=== PATIENT | female | born 1970 | race Hispanic/Latino ===

== ENCOUNTER 2017-01-06 06:58 | Day surgery (SDC) | payer OTHER, MEDICARE ==
[2017-01-05 11:02] VITALS: RESP 18
--- NOTE | 2017-01-06 08:09 | CP.SDSHP ---
Same Day Surgery H & P - History Proposed Procedure: Bone marrow aspiration Pre-Op Diagnosis: anemia and leukopenia - Previous Medical/Surgical History Cardiac: Hypertension, ASHD/CAD, Previous VT, Hx of CHF, Arrhythmia, PVD Pulmonary: Bronchitis, Emphysema/COPD Endocrine/Metabolic: Thyroid Disease, Diabetes, Obesity Neuro: Other Misc: Anemia Pain: 2.Mild Pain Previous Surgical History: malignant tumor right eye in 1976, with radiation therapy and chemotherapy - Allergies Allergies: Allergies ciprofloxacin Allergy (Verified 05/28/16 22:42) NAUSEA codeine Allergy (Verified 05/28/16 22:42) FATIGUE hallucinations kiwi Allergy (Verified 05/28/16 22:42) RASH mustard Allergy (Verified 05/28/16 22:42) RASH yellow mustard only Penicillins Allergy (Verified 05/28/16 22:42) ANAPHYLAXIS pepper Allergy (Verified 05/28/16 22:42) RASH white pepper only Sulfa (Sulfonamide Antibiotics) Allergy (Verified 05/28/16 22:42) RASH tomato Allergy (Verified 05/28/16 22:42) RASH sun dried tomatoes only amlodipine [From Norvasc] Adverse Reaction (Verified 01/05/17 10:00) RASH metoclopramide HCl [From Reglan] Adverse Reaction (Verified 05/28/16 22:42) DIZZINESS filberts Allergy (Uncoded 01/05/17 10:01) SWELLING - Physical Exam General Appearance: obese in no acute distress Vital Signs: Vital Signs 01/06/17 01/06/17 07:44 07:55 Temperature 97.9 F Pulse Rate 63 63 Respiratory 18 Rate Blood Pressure 114/48 L O2 Sat by Pulse 96 Oximetry Mental Status: Alert & Oriented x3 Neuro: Other (peripheral neuropathies) Heart: WNL Lungs: WNL GI: WNL - {Optional Preform as Required} Breast: WNL Abdomen: Other (obese, no mass) Rectal: WNL Integument: WNL CARTON STAPLER: WNL : WNL Ortho: WNL ENT: WNL - Impression Impression: Anemia and leukopenia - Date & Time Date: 01/06/17 Time: 08:16 Short Stay Discharge - Short Stay Discharge Admitting Diagnosis/Reason for Visit: D46.1 Disposition: HOME/ ROUTINE Referrals: Nic Dumont MD [Primary Care Provider] -
[2017-01-06 08:34] VITALS: BMI 55.3
[2017-01-06] MEDS ORDERED: Lidocaine 2% w Epi 1:100,000 Inj IJ ONE ×2 (08:47→09:13)
[2017-01-06] MEDS ORDERED: Lactated Ringer's 1,000 ML IV ONE (09:00)
[2017-01-06 09:01] LABS: PARTIAL THROMBOPLASTIN TIME 35.8 Seconds (25.6-37.1)
[2017-01-06] MEDS ORDERED: Midazolam 2 MG/2 ML VIAL ONE (09:07)
--- NOTE | 2017-01-06 10:16 | CP.PCM.PN ---
Subjective - Date & Time of Evaluation Date of Evaluation: 01/06/17 Time of Evaluation: 10:13 - Subjective Subjective: Pt had a bone marrow aspiration done from the sternum under local anesthesia and deep sedation. Procedure tolerated well, with results to follow. Objective - Vital Signs/Intake and Output Vital Signs (last 24 hours): Temp Pulse Resp BP Pulse Ox 97.6 F 62 18 120/64 100 01/06/17 09:45 01/06/17 10:00 01/06/17 10:00 01/06/17 10:00 01/06/17 10:00 Intake and Output: 01/06/17 01/06/17 06:59 18:59 Intake Total 100 Balance 100 - Labs Labs: PT 13.3 Seconds (9.8-13.1) H 01/06/17 08:00 INR 1.3 (0.9-1.2) H 01/06/17 08:00 APTT 35.8 Seconds (25.6-37.1) 01/06/17 08:00
[2017-01-06 12:24] VITALS: BP 123/63; PULSE 65; TEMP 97.8; O2SAT 98
== END 2017-01-06 12:39 | disposition home or self-care (01) ==
LOC: H.OPSURG 06:58
PROVIDERS: ATTEND Specialist
DX: D46.1 Refractory anemia with ring sideroblasts (principal); J45.909 Unspecified asthma, uncomplicated; I25.10 Atherosclerotic heart disease of native coronary artery without angina pectoris; I11.0 Hypertensive heart disease with heart failure; I50.9 Heart failure, unspecified; I25.2 Old myocardial infarction; E78.5 Hyperlipidemia, unspecified; E03.9 Hypothyroidism, unspecified; G47.33 Obstructive sleep apnea (adult) (pediatric); E11.9 Type 2 diabetes mellitus without complications
CPT/HCPCS: 36415; 38221; 82948; 85610; 85730; J2001; J2250; J3010; J7120

== ENCOUNTER 2017-02-17 09:03 | Inpatient (IN) | payer OTHER, MEDICARE ==
[2017-02-17 09:08] VITALS: BMI 54.1
--- NOTE | 2017-02-17 09:18 | ED PDOC ---
HPI:STROKE - Time Time: :15 - Historian Historian: Patient - Chief Complaint Chief Complaint: Weakness (left side) - Onset Date: 02/17/17 Onset: This morning - Timing Timing: Improved - Location Locate left: Lower extremity - Radiation Radiation: None - Exacerbated by Exacerbated by:: Nothing - Relieved by Relieved by:: Nothing - TPA Positive for Contraindication: Yes Reason tPA is not being Administered: pt out of treatment window - Notes: Notes:: 47 y/o f with a pmh of htn and bm, right eye blindness p/w left sided weakness that the patient noticed when she awoke, nothing makes it better or worse, no trouble speeching or swallowing NIHSS Stroke Scale - Date/Time Evaluation Performed Date Performed: 02/17/17 Time Performed: :18 - How Severe is the Stroke Level of Consciousness: 0=Alert LOC to Questions: 0=Both comments correct LOC to commands: 0=Obeys both correctly Best Gaze: 0=Normal Visual: 0=No visual loss Facial: 0=Normal Motor Arm - Left: 0=No drift Motor Arm - Right: 0=No drift Motor Leg - Left: 0=No drift Motor Leg - Right: 0=No drift Limb Ataxia: 0=Absent Sensory: 0=Normal Best Language: 0=No aphasia Dysarthia: 0=Normal articulation Extinction & Inattention (Neglect): 0=Normal, no object Score: 0 rTPA Inclusion/Exclusion - Refusal of Treatment Patient Refused Treatment: No - Inclusion Criteria for Altepase Patient is 18 years or Older: Yes The Clinical Diagnosis of Ischemic Stroke That is Causing a Potentially Disabling Neurological Deficit: Yes Time of Onset is Well Established to be Less Than 270 Minute Before Treatment Would Begin: No Risk/Benefit Discussed With Patient/Family Member Present: Yes Past Medical History Reviewed: Historical Data, Nursing Documentation, Vital Signs Vital Signs: Last Vital Signs Temp 98.6 F 02/17/17 09:13 Pulse 72 02/17/17 09:13 Resp 16 02/17/17 09:13 BP 174/86 H 02/17/17 09:13 Pulse Ox 98 02/17/17 09:13 - Medical History PMH: Anemia, Anxiety, Arthritis, Asthma, Bronchitis, CAD, CHF, Depression, Diabetes, Deep Vein Thrombosis, GERD, HTN, Hypercholesterolemia, Hypothyroidism , Osteoporosis, Peripheral Edema, Pulmonary Embolism, Sleep Apnea (use c-pap), TIA Denies: HIV, Chronic Kidney Disease - Surgical History Surgical History: Coronary Stent (3x), Endoscopy, Tonsillectomy - Family History Family History: States: Unknown Family Hx - Living Arrangements Living Arrangements: With Family - Social History Current smoker - smoking cessation education provided: No - Immunization History Hx Tetanus Toxoid Vaccination: No Hx Influenza Vaccination: Yes Hx Pneumococcal Vaccination: No - Home Medications Home Medications: Ambulatory Orders Medication Instructions Recorded Ranolazine [Ranexa] 500 mg PO BID #0 ter 09/18/14 Levothyroxine [Synthroid] 200 mcg PO ACB 12/19/14 Potassium Chloride [K-Dur 20 mEq 40 meq PO BID 12/19/14 ER Tab] Insulin Aspart, Recombinant 20 - 40 unit SC ACTID 02/07/16 [Novolog] Montelukast [Singulair] 10 mg PO HS 02/07/16 Allopurinol [Zyloprim] 300 mg PO DAILY #0 tab 02/21/16 Clopidogrel [Plavix] 75 mg PO DAILY #0 tab 02/21/16 Insulin Detemir [Levemir] 30 - 40 units SC BID 04/28/16 Vilazodone HCl [Viibryd] 20 mg PO DAILY 04/28/16 cloNIDine [Catapres] 0.2 mg PO BID 04/28/16 ALPRAZolam [Xanax] 0.25 mg PO HS PRN 08/19/16 DiphenhydrAMINE [Benadryl] 25 mg PO HS PRN 08/19/16 Ergocalciferol (Vitamin D2) 50,000 unit PO FR 08/19/16 [Vitamin D2] Furosemide [Lasix] 40 mg PO BID 08/19/16 Levocetirizine Dihydrochloride 5 mg PO HS 08/19/16 [Xyzal] Mometasone Furoate [Nasonex] 1 spray GOPI DAILY PRN 08/19/16 Nystatin/Triamcinolone [Mycolog 1 appl TOP TID 08/19/16 Ointment] Rosuvastatin Calcium [Crestor] 10 mg PO HS 08/19/16 metFORMIN [glucOPHAGE] 500 mg PO BID 08/19/16 Aspirin [Ecotrin] 81 mg PO HS 02/17/17 Famotidine [Pepcid] 20 mg PO BID 02/17/17 Levalbuterol Tartrate [Xopenex Hfa] 2 puff IH Q6H PRN 02/17/17 - Allergies Allergies/Adverse Reactions: Allergies Allergy/AdvReac Type Severity Reaction Status Date / Time ciprofloxacin Allergy NAUSEA Verified 02/17/17 09:09 codeine Allergy FATIGUE Verified 02/17/17 09:09 kiwi Allergy RASH Verified 02/17/17 09:09 mustard Allergy RASH Verified 02/17/17 09:09 Penicillins Allergy ANAPHYLAXIS Verified 02/17/17 09:09 pepper Allergy RASH Verified 02/17/17 09:09 Sulfa (Sulfonamide Allergy RASH Verified 02/17/17 09:09 Antibiotics) tomato Allergy RASH Verified 02/17/17 09:09 amlodipine [From Norvasc] AdvReac RASH Verified 02/17/17 09:09 metoclopramide HCl AdvReac DIZZINESS Verified 02/17/17 09:09 [From Reglan] filberts Allergy SWELLING Uncoded 01/05/17 10:01 Review of Systems ROS Statement: Except As Marked, All Systems Reviewed And Found Negative Constitutional: Negative for: Fever, Chills Cardiovascular: Negative for: Chest Pain Respiratory: Negative for: Cough, Shortness of Breath Gastrointestinal: Negative for: Nausea, Vomiting Neurological: Positive for: Weakness. Negative for: Numbness, Confusion, Seizures, Altered Mental Status, Headache, Dizziness Physical Exam - Reviewed Nursing Documentation Reviewed: Yes Vital Signs Reviewed: Yes - Physical Exam Appears: Positive for: Uncomfortable (morbidly obese) Head Exam: Positive for: ATRAUMATIC, NORMAL INSPECTION, NORMOCEPHALIC Skin: Positive for: Normal Color, Warm, Dry Eye Exam: Positive for: EOMI, PERRL, Other (right eye blind and covered with patch) Neck: Positive for: Normal, Painless ROM, Supple Cardiovascular/Chest: Positive for: Regular Rate, Rhythm, Chest Non Tender Respiratory: Positive for: Normal Breath Sounds. Negative for: Decreased Breath Sounds, Accessory Muscle Use, Crackles, Rales, Rhonchi, Stridor, Wheezing , Respiratory Distress Pulses-Radial (L): 2+ Pulses-Radial (R): 2+ Gastrointestinal/Abdominal: Positive for: Normal Exam, Bowel Sounds, Soft. Negative for: Tenderness Extremity: Positive for: Normal ROM. Negative for: Tenderness, Pedal Edema, Calf Tenderness, Deformity, Swelling Neurologic/Psych: Positive for: Alert, coffee brewer II-XII, Oriented, Motor/Sensory Deficits (mild left hand cementer strength reduced on left), Mood/Affect (calm), Cerebellar Tests (ftn). Negative for: Aphasia, Facial Droop - Laboratory Results Result Diagrams: 02/17/17 09:28 02/17/17 09:28 - ECG ECG: Positive for: Interpreted By Me ECG Rhythm: Positive for: Normal QRS, Normal ST Segment, Sinus Rhythm. Negative for: ST/T Changes Interpretation Of Abn EKG: rate of 70, mild t wave flattening unchanged since yesterday O2 Sat by Pulse Oximetry: 98 Pulse Ox Interpretation: Normal - Radiology X-Ray: Interpreted by Me X-Ray Interpretation: No Acute Disease - Progress ED Course And Treament: per Dr michael cta results similar to prev mri. will admit to obs. no other intervention Re-evaluation Time: 11:00 Condition: Improved Disposition - Clinical Impression Clinical Impression: TIA (transient ischemic attack) - Patient ED Disposition Is Patient to be Admitted: Yes Counseled Patient/Family Regarding: Studies Performed, Diagnosis - Disposition Disposition Time: 11:00 Condition: STABLE - Pt Status Changed To: Hospital Disposition Of: Observation - POA Present On Arrival: None
[2017-02-17 09:37] LABS: BASO % 0.3 % (0.0-2.0); EOS # 0.1 K/uL (0.0-0.7); HEMATOCRIT 25.3 % (34.0-47.0); LYMPH # 0.9 K/uL (1.0-4.3); LYMPH % 27.8 % (20.0-40.0); MEAN CELL VOLUME 81.5 fl (81.0-99.0); MEAN CORPUSCULAR HEMOGLOBIN 27.5 pg (27.0-31.0); MEAN CORPUSCULAR HGB CONC 33.7 g/dL (33.0-37.0); MEAN PLATELET VOLUME 7.9 fl (7.2-11.7); MONO # 0.2 K/uL (0.0-0.8); MONO % 6.7 % (0.0-10.0); NEUT # 2.1 K/uL (1.8-7.0); NEUT % 62.2 % (50.0-75.0); NRBC % 0.1 % (0.0-0.0); RED CELL DISTRIBUTION WIDTH 15.4 % (11.5-14.5); WHITE BLOOD COUNT 3.4 K/uL (4.8-10.8)
--- NOTE | 2017-02-17 09:43 | CT ---
PROCEDURE: CT HEAD WITHOUT CONTRAST. HISTORY: code stroke COMPARISON: Enhanced head CT 02/10/2016. TECHNIQUE: Axial computed tomography images were obtained through the head/brain without intravenous contrast. Radiation dose: Total exam DLP = 780.44 mGy-cm. This CT exam was performed using one or more of the following dose reduction techniques: Automated exposure control, adjustment of the mA and/or kV according to patient size, and/or use of iterative reconstruction technique. FINDINGS: HEMORRHAGE: No intracranial hemorrhage. BRAIN: Normal lew-white matter differentiation and density are appreciated throughout the cerebrum and cerebellum with the brainstem appearing unremarkable as well. There is no mass effect. There is no suspicious extra-axial fluid collection in the midline brain anatomy appears diffusely unremarkable. VENTRICLES: Unremarkable. No hydrocephalus. CALVARIUM: Unremarkable. PARANASAL SINUSES: Unremarkable as visualized. No significant inflammatory changes. MASTOID AIR CELLS: Unremarkable as visualized. No inflammatory changes. OTHER FINDINGS: None. IMPRESSION: Unremarkable unenhanced head CT without significant interval change greater prior head CT 02/10/2016. Follow-up CT or MRI are available if clinically warranted. Findings were discussed with Dr. Wellington 02/17/2017 9:28 a.m..
[2017-02-17 09:50] LABS: ALKALINE PHOSPHATASE 69 U/L (38-126); ALT/SGPT 33 U/L (9-52); AST/SGOT 54 U/L (14-36); BILIRUBIN,TOTAL 0.3 mg/dl (0.2-1.3); BLOOD UREA NITROGEN 14 mg/dl (7-17); CALCIUM 8.3 mg/dL (8.4-10.2); CARBON DIOXIDE 32 mmol/L (22-30); CHLORIDE 100 mmol/L (98-107); CHOLESTEROL 140 mg/dL (0-199); GFR AFRICAN-AMERICAN > 60; GLUCOSE,RANDOM 179 mg/dL (65-105); POTASSIUM 3.3 MMOL/L (3.6-5.0); SODIUM 141 mmol/l (132-148); TOTAL PROTEIN 6.8 G/DL (6.3-8.2)
[2017-02-17] MEDS ORDERED: Iodixanol 320 MG/ML 100 ML BOTTLE IV ONE (09:52)
[2017-02-17] MEDS ORDERED: Sodium Chloride 0.9% 50 ML IV ONE (09:52)
[2017-02-17 09:53] LABS: PARTIAL THROMBOPLASTIN TIME 39.1 Seconds (25.6-37.1)
--- NOTE | 2017-02-17 10:47 | CT ---
PROCEDURE: CTA HEAD AND NECK WITH CONTRAST HISTORY: cva mild right sdied weakness of ue COMPARISON: None available. TECHNIQUE: Initial noncontrast head CT was performed. Subsequently, CT angiogram of the head and neck were performed after the intravenous administration of 80 mL of Omnipaque 350. Contiguous 1.5mm thick images were obtained in the axial plane of the neck. 2-D coronal and sagittal MPR images were obtained. Imaging postprocessing was performed with 3-D images also obtained. A delayed contrast head CT was also obtained. This CT exam was performed using one or more of the following dose reduction techniques: Automated exposure control, adjustment of the mA and/or kV according to patient size, and/or use of iterative reconstruction technique. Contrast dose: 100 cc Visipaque 320 Radiation dose: Total exam DLP = 3861.79 mGy-cm. FINDINGS: HEAD: There are dense atherosclerotic calcifications in the cavernous carotid arteries, worse on the right. Right: The intracranial internal carotid artery, and anterior and middle cerebral arteries are widely patent. Left: The intracranial internal carotid artery, and anterior and middle cerebral arteries are widely patent. Posterior circulation: The visualized intracranial vertebral arteries, basilar artery and left posterior cerebral arteries are widely patent. There is asymmetric severe narrowing of the right posterior cerebral artery. Bilateral posterior communicating arteries are normal. Ther is no endoluminal filling defect to suggest thrombus. There is no intracranial saccular aneurysm. There is no abnormal enhancement on the postcontrast CT. NECK: There is a three vessel aortic arch. There is no stenosis at the origins of the great vessels at the level of the aortic arch. There are mild atherosclerotic calcifications in the proximal internal carotid arteries without luminal narrowing Right Carotid: On the right, the common carotid, internal carotid and external carotid arteries are widely patent. There is no hemodynamically significant stenosis in the internal carotid arteries. Left Carotid: On the left, the common carotid, internal carotid and external carotid arteries are widely patent.There is no hemodynamically significant stenosis in the internal carotid arteries. The vertebral arteries are widely patent. The right vertebral artery is hypoplastic, an anatomic variant. The visualized soft tissues of the neck are normal. The visualized brain and cervical spine are within normal limits. The lung apices are clear. IMPRESSION: 1. Asymmetric severe narrowing of the right posterior cerebral artery which may be related to severe underlying atherosclerosis. 2. No evidence of hemodynamically significant stenosis in the internal carotid arteries. 3. No evidence of occlusion or definite significant stenosis in the anterior circulation.
--- NOTE | 2017-02-17 11:27 | CARD ---
APPROVED REPORT EKG Measurement Heart [id number] <Conclusion> Sinus rhythm with 1st degree AV block T wave abnormality, consider inferior ischemia Prolonged QT Abnormal ECG
--- NOTE | 2017-02-17 11:45 | RAD ---
HISTORY: code stroke COMPARISON: 05/28/2016. FINDINGS: LUNGS: The lungs are well inflated and clear. PLEURA: No significant pleural effusion identified, no pneumothorax apparent. CARDIOVASCULAR: Normal. OSSEOUS STRUCTURES: No significant abnormalities. VISUALIZED UPPER ABDOMEN: Normal. OTHER FINDINGS: None. IMPRESSION: No active pulmonary disease.
[2017-02-17] MEDS ORDERED: Albuterol HFA 90 mcg/actuation (8 g) IH PRN (12:38)
[2017-02-17] MEDS ORDERED: Mycolog II CREAM TOP SCH (13:00)
--- NOTE | 2017-02-17 15:49 | CP.PCM.HP ---
History of Present Illness - History of Present Illness History of Present Illness: CC: Left sided weakness This is a 47-year-old female with a long-standing history of bronchial asthma, also with history of CVA, morbid obesity, sinusitis, and suspected obesity/ hypoventilation syndrome. She also has history of diabetes mellitus type II, cardiomyopathy, coronary artery disease with stents, history of pulmonary embolism. She also has history of right a malignant tumor in 1976. The patient presented this morning around 9:15 with a complaint of sudden onset left upper and left lower any weakness when she woke up this morning around 6 AM. She notes that when trying to walk to the bathroom and felt like she was "out of control of my left leg". After a concern that she might fall secondary to weakness, she came to the emergency department. Here in the ED, code stroke was called given her symptoms. CT scan without contrast was performed which showed no significant interval change from previous head CT on 02/10/2016. The head and neck CT was also performed revealing asymmetric severe narrowing of the right posterior cerebral artery which may be related to severe underlying atherosclerosis. Her symptoms improved during her stay in the ED. Dr. Hoyt, neurologist, was consulted on the patient. The patient was also noted to have anemia with a hemoglobin of 8.[address] Renan Vizcaino is to also be called. Given the concern for CVA, the patient is to be placed on telemetry observation overnight for further monitoring and workup.Patient denies chest pain, shortness of breath, fevers, chills, nausea, vomiting, diarrhea, headache. Rest of ROS as below. All of the patient's questions were answered at the bedside. Present on Admission - Present on Admission Any Indicators Present on Admission: No History of DVT/PE: Yes Review of Systems - Hematologic/Lymphatic Additional comments: GENERAL/CONSTITUTIONAL: The patient admits to left sided weakness. denies fever , fatigue, weakness, weight gain or weight loss. HEAD, EYES, EARS, NOSE AND THROAT: Eyes - The patient has right eye patch with remote tumor hx. The patient denies pain, redness, loss of vision, double or blurred vision, flashing lights or spots, dryness in left eye. Ears, nose, mouth and throat. The patient denies ringing in the ears, loss of hearing, nosebleeds, loss of sense of smell, dry sinuses, sinusitis, post nasal drip, CARDIOVASCULAR: The patient denies chest pain, chest pressure, or irregular heartbeats, RESPIRATORY: She denies chronic dry cough, coughing up blood, coughing up mucus , wheezing, or shortness of breath. GASTROINTESTINAL: The patient denies decreased appetite, nausea, vomiting, vomiting blood or coffee ground material, heartburn, regurgitation, diarrhea, constipation, gas, blood in the stools, black tarry stools. GENITOURINARY: The patient denies difficult urination, pain or burning with urination, blood in the urine, frequency, or urgency MUSCULOSKELETAL: The patient denies arm, buttock, thigh or calf cramps. No joint or muscle pain. No muscle weakness or tenderness. No joint swelling, neck pain, back pain. SKIN: The patient denies easy bruising, skin redness, skin rash, hives, sensitivity to sun exposure, tightness, nodules or bumps, hair loss, color changes in the hands or feet with cold. NEUROLOGIC: Complains of left sided weakness as in HPI. She admits to headache on 02/16. The patient denies dizziness, fainting, muscle spasm, loss of consciousness, sensitivity or pain in the hands and feet or memory loss. PSYCHIATRIC: The patient denies anxiety, depression, or thoughts of suicide. ENDOCRINE: The patient denies intolerance to hot or cold temperature, flushing, fingernail changes, increased thirst, increased salt intake or decreased sexual desire. HEMATOLOGIC/LYMPHATIC: The patient denies anemia, bleeding tendency or clotting tendency. ALLERGIC/IMMUNOLOGIC: The patient denies rhinitis, asthma, skin sensitivity, latex allergies or sensitivity. Past Patient History - Infectious Disease Hx of Infectious Diseases: None - Past Medical History & Family History Past Medical History?: Yes - Past Social History Smoking Status: Never Smoked - CARDIAC Hx Congestive Heart Failure: Yes Hx Hypercholesterolemia: Yes Hx Hypertension: Yes Hx Peripheral Edema: Yes - PULMONARY Hx Asthma: Yes Hx Bronchitis: Yes Hx Pulmonary Embolism: Yes Hx Sleep Apnea: Yes (use c-pap) - NEUROLOGICAL Hx Transient Ischemic Attacks (TIA): Yes - HEENT Hx Blind: Yes (RT EYE) - RENAL Hx Chronic Kidney Disease: No - ENDOCRINE/METABOLIC Hx Hypothyroidism: Yes - HEMATOLOGICAL/ONCOLOGICAL Hx Anemia: Yes Hx Human Immunodeficiency Virus (HIV): No - INTEGUMENTARY Hx Dermatological Problems: No - MUSCULOSKELETAL/RHEUMATOLOGICAL Hx Arthritis: Yes Hx Osteoporosis: Yes - GASTROINTESTINAL Hx Gastrointestinal Disorders: No Hx Gastroesophageal Reflux: Yes - GENITOURINARY/GYNECOLOGICAL Hx Genitourinary Disorders: No - PSYCHIATRIC Hx Anxiety: Yes Hx Depression: Yes Hx Substance Use: No - SURGICAL HISTORY Hx Coronary Stent: Yes (3x) Hx Tonsillectomy: Yes - ANESTHESIA Hx Anesthesia: Yes Hx Anesthesia Reactions: Yes (BREATHING, VOMITTING) Hx Malignant Hyperthermia: No Meds Allergies/Adverse Reactions: Allergies Allergy/AdvReac Type Severity Reaction Status Date / Time ciprofloxacin Allergy NAUSEA Verified 02/17/17 09:09 codeine Allergy FATIGUE Verified 02/17/17 09:09 kiwi Allergy RASH Verified 02/17/17 09:09 mustard Allergy RASH Verified 02/17/17 09:09 Penicillins Allergy ANAPHYLAXIS Verified 02/17/17 09:09 pepper Allergy RASH Verified 02/17/17 09:09 Sulfa (Sulfonamide Allergy RASH Verified 02/17/17 09:09 Antibiotics) tomato Allergy RASH Verified 02/17/17 09:09 amlodipine [From Norvasc] AdvReac RASH Verified 02/17/17 09:09 metoclopramide HCl AdvReac DIZZINESS Verified 02/17/17 09:09 [From Reglan] filberts Allergy SWELLING Uncoded 01/05/17 10:01 Physical Exam - Additional Findings Additional findings: Physical exam: Constitutional- cooperative, awake, alert. Head- NCAT, PERRL Eye- PERRL, normal accommodation ENT- normal exam, MMM. Neck- normal inspection, supple, no JVD Respiratory- CTAB, no wheezes rales rhonchi Cardiovascular- RRR, +S1, +S2 no MRG GI/Abdominal- normal bowel sounds, soft Skin- warm, dry Extremities Exam- normal capillary refill, normal inspection. Neurological Exam- alert, gait unable to be assessed. CN II-XII intact. Psych- normal mood, normal affect Results - Vital Signs Recent Vital Signs: Last Vital Signs Temp 98.4 F 02/17/17 15:19 Pulse 70 02/17/17 15:19 Resp 16 02/17/17 15:19 BP 175/69 H 02/17/17 15:19 Pulse Ox 97 02/17/17 15:18 - Labs Result Diagrams: 02/17/17 09:28 02/17/17 09:28 Labs: Laboratory Results - last 24 hr 02/17/17 02/17/17 02/17/17 09:10 09:28 09:28 WBC 3.4 L RBC 3.11 L Hgb 8.5 L Hct 25.3 L MCV 81.5 D MCH 27.5 MCHC 33.7 RDW 15.4 H Plt Count 122 L MPV 7.9 Neut % (Auto) 62.2 Lymph % (Auto) 27.8 Arroyo % (Auto) 6.7 Eos % (Auto) 3.0 Baso % (Auto) 0.3 Neut # 2.1 Lymph # 0.9 L Arroyo # 0.2 Eos # 0.1 Baso # 0.0 PT INR APTT Sodium 141 Potassium 3.3 L Chloride 100 Carbon Dioxide 32 H Anion Gap 12 BUN 14 Creatinine 0.8 Est GFR ( Amer) > 60 Est GFR (Non-Af Amer) > 60 POC Glucose (mg/dL) 214 H Random Glucose 179 H Hemoglobin A1c Calcium 8.3 L Total Bilirubin 0.3 AST 54 H ALT 33 Alkaline Phosphatase 69 Troponin I < 0.0120 NT-Pro-B Natriuret Pep 187 Total Protein 6.8 Albumin 3.5 Globulin 3.4 Albumin/Globulin Ratio 1.0 Triglycerides 163 H Cholesterol 140 LDL Cholesterol Direct 67 HDL Cholesterol 33 Blood Type Antibody Screen BBK History Checked 02/17/17 02/17/17 02/17/17 09:28 09:28 09:28 WBC RBC Hgb Hct MCV MCH MCHC RDW Plt Count MPV Neut % (Auto) Lymph % (Auto) Arroyo % (Auto) Eos % (Auto) Baso % (Auto) Neut # Lymph # Arroyo # Eos # Baso # PT 14.0 H INR 1.2 APTT 39.1 H Sodium Potassium Chloride Carbon Dioxide Anion Gap BUN Creatinine Est GFR ( Amer) Est GFR (Non-Af Amer) POC Glucose (mg/dL) Random Glucose Hemoglobin A1c 7.0 H Calcium Total Bilirubin AST ALT Alkaline Phosphatase Troponin I NT-Pro-B Natriuret Pep Total Protein Albumin Globulin Albumin/Globulin Ratio Triglycerides Cholesterol LDL Cholesterol Direct HDL Cholesterol Blood Type A POSITIVE Antibody Screen Negative BBK History Checked Patient has bt Assessment & Plan - Assessment and Plan (Free Text) Plan: ASSESSMENT Left sided weakness, r/o CVA, with severe narrowing of the right posterior cerebral artery. - Consultation with Dr. Hoyt for management of possible CVA - PT/OT/ST consultation - Continue Aspirin/Plavix - Continue home statin - Neuro checks/vitals as per protocol Acute on chronic anemia - Consultation with Dr. Vizcaino, heme/onc - Repeat CBC in AM to trend - No hx of GI bleeding in the past Chronic bronchial asthma - Consultation with Dr. Dumont - Patient saturating well, hemodynamically stable - continue Claritin 10 mg po HS - Continue Singulair 10 mg po HS DM type 2 - Lispro sliding scale initiated - Levemir 40 units SC BID - Accuchecks AC+HS CAD with stents - Continue ASA, Plavix, statin as above - No CP at this time - telemetry monitoring Hypothyroidism - Continue Synthroid DVT prophylaxis - Heparin SQ GERD prophylaxis - Pepcid 20 mg po BID (home med)
[2017-02-17] MEDS ORDERED: Insulin Detemir 100 Units/ml Inj SC SCH ×3 (17:00→22:03)
[2017-02-17] MEDS ORDERED: Insulin Lispro (humaLOG) 100 Units/ml Inj SC SCH ×2 (17:00→18:27)
[2017-02-17] MEDS: Potassium Chloride 20 mEq ER Tab PO SCH (17:52)
[2017-02-17] MEDS: Insulin Lispro (humaLOG) 100 Units/ml Inj SC SCH (22:46)
[2017-02-18 05:35] LABS: ALKALINE PHOSPHATASE 69 U/L (38-126); ALT/SGPT 37 U/L (9-52); AST/SGOT 56 U/L (14-36); BILIRUBIN,TOTAL 0.3 mg/dl (0.2-1.3); BLOOD UREA NITROGEN 15 mg/dl (7-17); CALCIUM 8.9 mg/dL (8.4-10.2); CARBON DIOXIDE 35 mmol/L (22-30); CHLORIDE 99 mmol/L (98-107); GFR AFRICAN-AMERICAN > 60; GLUCOSE,RANDOM 219 mg/dL (65-105); POTASSIUM 3.3 MMOL/L (3.6-5.0); SODIUM 141 mmol/l (132-148)
[2017-02-18 05:59] LABS: THYROID STIMULATING HORMONE 4.33 mIU/ML (0.46-4.68)
[2017-02-18] MEDS: Insulin Lispro (humaLOG) 100 Units/ml Inj SC SCH ×6 (06:34→23:12)
[2017-02-18] MEDS ORDERED: Insulin Lispro (humaLOG) 100 Units/ml Inj SC SCH (07:30)
[2017-02-18 08:20] LABS: IRON 30 ug/dL (37-170)
[2017-02-18] MEDS: Levothyroxine 200 MCG TAB PO SCH (09:02)
[2017-02-18] MEDS: Potassium Chloride 20 mEq ER Tab PO SCH ×2 (09:03→17:59)
[2017-02-18] MEDS: Insulin Detemir 100 Units/ml Inj SC SCH ×2 (09:04→23:13)
--- NOTE | 2017-02-18 10:25 | CON ---
DATE: 02/17/2017 REASON FOR THE CONSULTATION: Stroke. CHIEF COMPLAINT: The patient was brought in to [facility] with a history of woke up with dizziness and losing her balance on her left side. From neurological point of view, I was called in to evaluate her for further management. HISTORY OF PRESENTING ILLNESS: Ms. Jerilyn Hallman is a 47-year-old moderately obese, right handed, female who is known to me for more than three to four years for her neuropathy, headache, and stroke. Patient did have stroke process particularly affecting posterior cerebral artery distribution in her recent admission. She had an extensive workup during the time, and she was transferred to rehab. At this time, she woke up around 3:00. She felt vertiginous feeling. Immediately, she called her to help her. She was not able to have strength on her left side, about to fall onto the left side. The whole event was not associated with speech or bulbar dysfunction or visual disturbances. She immediately called her girlfriend who is a nurse. She immediately advised her to go to the Emergency Room. In the Emergency Room, erin spicer was called in, did have a CT of the head, which was reported as negative, and CT angiogram also showed no acute thrombus noted except atherosclerotic changes in the posterior cerebral artery distribution. Since the symptom has been improved, patient was not a candidate to get a TPA. PAST MEDICAL HISTORY: Hypertension, dyslipidemia, diabetes mellitus, migraine, hypothyroidism, sleep disorder. PERSONAL HISTORY: Denies smoking or alcohol use. ALLERGIES: TO CIPRO, CODEINE, KIWI, MUSTARD, PENICILLIN, PEPPER, ETC. REVIEW OF SYSTEMS: A 16-point system has been reviewed. NEURO: Recurrent dizziness and left-sided weakness. MEDICATIONS: Benadryl, Catapres, Claritin, Drisdol, Ecotrin, Flonase, Glucophage, Humalog, potassium supplement, Lasix, Levemir, Lipitor, Plavix, Singulair, Synthroid, Xanax, and Zyloprim. PHYSICAL EXAMINATION: VITAL SIGNS: Blood pressure 168/78, mean arterial pressure of 102, respiratory rate of 16, temperature afebrile, NECK: Supple. Carotid bruit on both sides. HEART: Tachycardic. EXTREMITIES: No edema in legs. NEUROLOGIC: Mental status examination: She is awake, alert, and oriented to person, place and time. Speech is clear. Naming, repetition, fluency, comprehension all within normal. Her eye has been patched from her old injuries. With one eye, extraocular movement is normal. Pupil reactive to light. No facial asymmetry. 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 Motor examination: Outstretched hand with eyes closed, no drift is noted. Power is symmetrical on either side. Deep tendon reflexes: Biceps, brachialis, triceps, knee, ankle all are absent. Plantars are mute. Coordination: [id number] test, consistently missed her nose. [place]ouau-oy-[id number] test also showed dysmetria. Gait: She was not able to stand up. Romberg sign positive, leaning to her left side, she was not able to march on one place. WORKUP: CT of the head and CT angiogram have been reported as above. Blood workup: WBC 3.4, hemoglobin 8.5, hematocrit 25.3, platelet 122. PT 14.0, INR 1.2, PTT 39.1. Sodium 141, potassium 3.3, chloride 100, bicarbonate 32, creatinine 0.8, GFR more than 60, glucose 214, hemoglobin A1c 7.0. CONCLUSION: Ms. Jerilyn Hallman has been presenting with possible brainstem ischemic process manifesting with ataxic hemiparesis. Patient is already on aspirin and Plavix. Patient failing with aspirin. At this point, I would like to switch aspirin to Aggrenox. Patient also suffering from diabetic neuropathy, obesity, and possible sleep-related breathing disorder. Patient will be followed closely with you during the hospitalization. Patient is also requested to have an MRI of the brain to assess acute stroke process. Darren Hoyt MD MTDRey
--- NOTE | 2017-02-18 10:52 | CON ---
ENDOCRINOLOGY CONSULTATION DATE: LOCATION: In room 418, bed 2. HISTORY OF PRESENT ILLNESS: This is a 47-year-old female with known history of type 1 insulin-dependent diabetes, presenting here with sudden onset of left-sided weakness and evaluated to have a transient ischemic event with severe narrowing in the right posterior cerebral artery, seen by the CAT scan as noted, and is being referred now for diabetic evaluation and management. PAST MEDICAL HISTORY: As mentioned above, history of type 1 insulin-dependent diabetes on a basal and bolus insulin drug combination with Levemir given as 40 units subcu every 12 hours and Humalog taken as a variable dose of 30 to 40 units t.i.d. before meals as ordered. Her hemoglobin A1c has been near optimal and the latest A1c done on the outpatient was 6.9% this month. Also, history of diabetic retinopathy and polyneuropathy with underlying diabetic vasculopathy. She has significant history of coronary artery disease with a previous coronary stent placement done 3 times as noted. History of a previous cerebrovascular event presenting with transient ischemic attack, but no residual weakness as noted. History of peripheral arterial disease and vasculopathy. Also, history of hypothyroidism, on levothyroxine given at a high dose of 200 mcg daily as ordered, history of chronic obstructive lung disease related to chronic bronchial asthma with multiple admissions for exacerbations of the same, history of ischemic cardiomyopathy with previous admissions for congestive heart failure as noted. She also has obstructive sleep apnea and uses a CPAP at night as noted. 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 FAMILY HISTORY: Positive for diabetes, hypertension, and coronary artery disease, and her father who is at this time had significant coronary artery disease and underlying type 2 insulin-requiring diabetes. SOCIAL HISTORY: The patient is with no children, and has a very supportive family; otherwise, no known substance use. REVIEW OF SYSTEMS: As mentioned above. Admits to generalized body weakness with easy fatigability and tiredness and suboptimal energy level with supervening dizziness and lightheadedness, worse on the day of admission. Also admits to sudden onset of left-sided weakness in both upper and lower extremity with marked body weakness and malaise as noted. No chest pains or palpitations or PND. Oral intake has been variable with nausea, dyspepsia, and vague upper abdominal pains. No recent alterations of bowel or urinary patterns. PHYSICAL EXAMINATION: GENERAL: Obese female, in no apparent distress. VITAL SIGNS: Blood pressure of 160/90, pulse of 80 beats per minute and regular, temperature 98, respirations 20, height 5 feet 1 inch, weight is 289 pounds. HEENT: Head normocephalic. Eyes anicteric with pink conjunctivae. Funduscopy not possible at this time. Ears, nose and throat otherwise normal. NECK: Supple. Thyroid gland is normal in size. No carotid bruits or cervical adenopathy. CARDIOPULMONARY: Some adynamic precordium. S1, S2 is rapid and regular. LUNGS: Clear to auscultation. ABDOMEN: Obese, soft with positive bowel sounds. EXTREMITIES: No peripheral edema. Pulses are +2 bilaterally. LABORATORY DATA: Chemistry showed a BUN of 14, sodium 141, potassium 3.3, chloride 100, CO2 of 32, glucose 179, and creatinine 0.8. Her hemoglobin A1c is 7.0%. The glucose levels have ranged from 217 to 278 mg/dL. ASSESSMENT: This is a 47-year-old female with uncontrolled and decompensated type 1 insulin-dependent diabetes, presenting here with a transient ischemic event with underlying history of cerebrovascular disease as noted thereof. She also has diabetic microvascular complications of retinopathy and polyneuropathy with diabetic macrovascular complications of significant coronary artery disease with multiple coronary stent placement and also underlying peripheral arterial disease and vasculopathy as noted. PLAN: Plan of management as discussed with the patient and staff, we will modify her current insulin regimen and switch over to a more physiologic basal and bolus insulin drug combination with Levemir to be given as 20 units just a single dose tonight as ordered and we will add tomorrow morning a dose of Levemir given also as 20 units subcu every 10:00 a.m. daily and we will add Levemir at 50 units at 10:00 p.m. daily as ordered. We will modify the coverage scale to obviate hypoglycemia and detailed orders have been given. A hemoglobin A1c has been done already and we will obtain serial chemistries and supplement accordingly as needed. We will also modify the coverage scale to obviate hypoglycemia and detailed orders have been given, and we will also add Humalog given as 12 units subcu t.i.d. before meals as ordered. We will modify the coverage scale to obviate hypoglycemia as ordered. We will also reinforce diabetic education and dietary instructions, especially with healthier food choices as ordered. We will follow. Lupe Subramanian MD
--- NOTE | 2017-02-18 15:16 | CP.PCM.CON ---
History of Present Illness - History of Present Illness History of Present Illness: This is a 47 yrs old female who was admitted with c/o left sided weakness when she woke up this morning. She also felt some tingling and numbness in the left hand. She felt better after a while but still has some numbness. A Ct scan of the head done in the ER showed no changes from the previous one . There was a marked narrowing of the posterior cerebral artery. She was also found to be anemic Her Hgb was 8.5 with a hct of 25.3, mcv was 81, rdw 15.4, retic count 3.4, and platelets were 122k. Iron was 30, tibc 415, sat 70%. Her B12 was 805. she had a bone marrow test done about 2 month ago and other than iron deficiency nothing else waqs seen. Flow cytometry and the cytogenetic studies were normal as well. She was taking iron at home but had reduced her dose to only once daily; On 3 tid her hgb had been 10.5 gms. She has several co morbid problems ex hypothroidism, DM, HTN, past malignancy , cardiomyopathy, cad with stents, hypoventilation syndrome,old CVA, pulm embolism,asthma and sinusitis Past Patient History - Infectious Disease Hx of Infectious Diseases: None - Past Medical History & Family History Past Medical History?: Yes - Past Social History Smoking Status: Never Smoked - CARDIAC Hx Congestive Heart Failure: Yes Hx Hypercholesterolemia: Yes Hx Hypertension: Yes Hx Peripheral Edema: Yes - PULMONARY Hx Asthma: Yes Hx Bronchitis: Yes Hx Pulmonary Embolism: Yes Hx Sleep Apnea: Yes (use c-pap) - NEUROLOGICAL Hx Transient Ischemic Attacks (TIA): Yes - HEENT Hx Blind: Yes (RT EYE) - RENAL Hx Chronic Kidney Disease: No - ENDOCRINE/METABOLIC Hx Hypothyroidism: Yes - HEMATOLOGICAL/ONCOLOGICAL Hx Blood Disorders: Yes Hx Anemia: Yes Hx Human Immunodeficiency Virus (HIV): No - INTEGUMENTARY Hx Dermatological Problems: No - MUSCULOSKELETAL/RHEUMATOLOGICAL Hx Arthritis: Yes Hx Falls: No Hx Osteoporosis: Yes - GASTROINTESTINAL Hx Gastrointestinal Disorders: Yes Hx Gastroesophageal Reflux: Yes - GENITOURINARY/GYNECOLOGICAL Hx Genitourinary Disorders: No - PSYCHIATRIC Hx Anxiety: Yes Hx Depression: Yes - SURGICAL HISTORY Hx Coronary Stent: Yes (3x) Hx Tonsillectomy: Yes Hx Tubal Ligation: Yes Other/Comment: Endoscopy - ANESTHESIA Hx Anesthesia: Yes Hx Anesthesia Reactions: Yes (BREATHING, VOMITTING) Hx Malignant Hyperthermia: No Meds Allergies/Adverse Reactions: Allergies Allergy/AdvReac Type Severity Reaction Status Date / Time ciprofloxacin Allergy NAUSEA Verified 02/17/17 09:09 codeine Allergy FATIGUE Verified 02/17/17 09:09 kiwi Allergy RASH Verified 02/17/17 09:09 mustard Allergy RASH Verified 02/17/17 09:09 Penicillins Allergy ANAPHYLAXIS Verified 02/17/17 09:09 pepper Allergy RASH Verified 02/17/17 09:09 Sulfa (Sulfonamide Allergy RASH Verified 02/17/17 09:09 Antibiotics) tomato Allergy RASH Verified 02/17/17 09:09 amlodipine [From Norvasc] AdvReac RASH Verified 02/17/17 09:09 metoclopramide HCl AdvReac DIZZINESS Verified 02/17/17 09:09 [From Reglan] filberts Allergy SWELLING Uncoded 01/05/17 10:01 - Medications Medications: Current Medications Allopurinol (Zyloprim) 300 mg PO DAILY [facility] Last Admin: 02/18/17 09:01 Dose: 300 mg Alprazolam (Xanax) 0.25 mg PO HS PRN PRN Reason: Anxiety Stop: 02/24/17 12:39 Atorvastatin Calcium (Lipitor) 20 mg PO HS [facility] Last Admin: 02/17/17 21:25 Dose: 20 mg Clonidine HCl (Catapres) 0.2 mg PO BID [facility] Last Admin: 02/18/17 09:05 Dose: 0.2 mg Clopidogrel Bisulfate (Plavix) 75 mg PO DAILY [facility] Last Admin: 02/18/17 09:02 Dose: 75 mg Diphenhydramine HCl (Benadryl) 25 mg PO HS PRN PRN Reason: Sleep Last Admin: 02/17/17 23:33 Dose: 25 mg Ergocalciferol (Drisdol 50,000 Intl Units Cap) 1 cap PO FR [facility] Famotidine (Pepcid) 20 mg PO BID [facility] Last Admin: 02/18/17 09:02 Dose: 20 mg Fluticasone Propionate (Flonase) 1 spr GOPI DAILY PRN PRN Reason: Allergy symptoms Furosemide (Lasix) 40 mg PO BID [facility] Last Admin: 02/18/17 09:03 Dose: 40 mg Heparin Sodium (Porcine) (Heparin) 5,000 units SC Q12 [facility] PRN Reason: Protocol Last Admin: 02/18/17 09:03 Dose: 5,000 units Home Med (Levalbuterol Tartrate [Xopenex Hfa]) 2 puff IH Q6H PRN PRN Reason: Shortness of Breath Home Med (Ranolazine [Ranexa]) 500 mg PO BID [facility] Home Med (Vilazodone Hcl [Viibryd]) 20 mg PO DAILY [facility] Hydrocortisone (Cortizone 1% Cream) 1 applic TOP BID [facility] Last Admin: 02/18/17 09:00 Dose: 1 applic Iron Sucrose 200 mg/ Sodium (Chloride) 110 mls @ 110 mls/hr IVPB DAILY [facility] Insulin Detemir (Levemir) 20 units SC DAILY [facility] Last Admin: 02/18/17 09:04 Dose: 20 u Insulin Detemir (Levemir) 30 units SC HS [facility] Insulin Human Lispro (Humalog) 0 units SC ACHS [facility] PRN Reason: Protocol Last Admin: 02/18/17 12:57 Dose: Not Given Insulin Human Lispro (Humalog) 14 units SC AC [facility] Last Admin: 02/18/17 13:16 Dose: 14 u Levothyroxine Sodium (Synthroid) 200 mcg PO ACB [facility] Last Admin: 02/18/17 09:02 Dose: 200 mcg Loratadine (Claritin) 10 mg PO HS [facility] Last Admin: 02/17/17 21:25 Dose: 10 mg Metformin HCl (Glucophage) 500 mg PO BID [facility] Last Admin: 02/18/17 09:03 Dose: 500 mg Montelukast Sodium (Singulair) 10 mg PO HS [facility] Last Admin: 02/17/17 21:25 Dose: 10 mg Nystatin (Nystop Topical Powder) 1 applic TOP TID [facility] Last Admin: 02/18/17 09:01 Dose: 1 applic Potassium Chloride (K-Dur 20 Meq Er Tab) 40 meq PO BID [facility] Last Admin: 02/18/17 09:03 Dose: 40 meq Physical Exam - Additional Findings Additional findings: Physical exam; Alert. well oriented, in no acute distress. neck; supple, no adenopathy Chest; Air entry reduced bilaterally, occasional rales Heart, RSR, GR 2/6 systolic murmur Results - Vital Signs Recent Vital Signs: Last Vital Signs Temp 97.9 F 02/18/17 12:26 Pulse 76 10/26/17 12:26 Resp 18 02/18/17 12:26 BP 160/71 H 02/18/17 12:26 Pulse Ox 99 02/18/17 12:26 - Labs Result Diagrams: 02/17/17 09:28 02/18/17 04:10 Labs: Laboratory Results - last 24 hr 02/17/17 02/17/17 02/18/17 17:30 21:54 04:10 Retic Count 3.4 H D Sodium Potassium Chloride Carbon Dioxide Anion Gap BUN Creatinine Est GFR ( Amer) Est GFR (Non-Af Amer) POC Glucose (mg/dL) 217 H 278 H Random Glucose Calcium Iron TIBC % Saturation Ferritin Total Bilirubin AST ALT Alkaline Phosphatase Total Protein Albumin Globulin Albumin/Globulin Ratio Vitamin B12 Thyroxine (T4) TSH 3rd Generation Cortisol AM Sample 02/18/17 02/18/17 02/18/17 04:10 04:10 04:10 Retic Count Sodium 141 Potassium 3.3 L Chloride 99 Carbon Dioxide 35 H Anion Gap 10 BUN 15 Creatinine 0.9 Est GFR ( Amer) > 60 Est GFR (Non-Af Amer) > 60 POC Glucose (mg/dL) Random Glucose 219 H Calcium 8.9 Iron TIBC % Saturation Ferritin 14.0 Total Bilirubin 0.3 AST 56 H ALT 37 Alkaline Phosphatase 69 Total Protein 7.0 Albumin 3.6 Globulin 3.4 Albumin/Globulin Ratio 1.0 Vitamin B12 805 Thyroxine (T4) 6.50 TSH 3rd Generation 4.33 Cortisol AM Sample 3.2 L 02/18/17 02/18/17 02/18/17 04:10 04:29 11:48 Retic Count Sodium Potassium Chloride Carbon Dioxide Anion Gap BUN Creatinine Est GFR ( Amer) Est GFR (Non-Af Amer) POC Glucose (mg/dL) 241 H 222 H Random Glucose Calcium Iron 30 L TIBC 415 % Saturation 7 L Ferritin Total Bilirubin AST ALT Alkaline Phosphatase Total Protein Albumin Globulin Albumin/Globulin Ratio Vitamin B12 Thyroxine (T4) TSH 3rd Generation Cortisol AM Sample Assessment & Plan - Assessment and Plan (Free Text) Assessment: Impression; TIA right side with a constricted post cerebral artery. Iron deficiency anemia. Plan: Plan; Will start her on venofer 200 mg iv .daily - Date & Time Date: 02/18/17 Time: 15:51
--- NOTE | 2017-02-18 15:50 | PN ---
LOCATION: Room #418. SUBJECTIVE: This is a 47-year-old female with recent uncontrolled type 1 insulin-dependent diabetes, presented here with a sudden left-sided weakness and evaluated to have an acute transient ischemic event that has resolved accordingly, and is also being followed closely now for metabolic management. Her glycemic levels are fluctuating, but improved, and the latest glucose values have ranged from 241-278 mg/dL. Her latest chemistry showed a BUN of 15, sodium 141, potassium 3.3, chloride 99, CO2 of 35, glucose 219, and creatinine 0.9. So, at this time, we will modify once again her basal and bolus insulin regimen and increase the Humalog to 14 units subcu t.i.d. before meals to start today as ordered. We will also increase the basal insulin to 30 units subcu at bedtime daily to start tonight. We will continue the morning Levemir given as 20 units subcu at 10:00 a.m. daily as ordered. We will continue the low-dose correction scale using Humalog insulin as modified and given. We will obtain serial chemistries and supplement accordingly as needed. We will follow. Lupe Subramanian MD
--- NOTE | 2017-02-18 16:34 | CP.PCM.PN ---
Subjective - Date & Time of Evaluation Date of Evaluation: 02/18/17 Time of Evaluation: 16:00 - Subjective Subjective: Patient seen and examined bedside.Feeling better but still complains of numbness and tingling sensation to her left side of her head, dizziness and unsteady gait. States that she is afraid to go home because she might fall. BP slightly elevated 160/71 HR 76 afebrile Objective - Vital Signs/Intake and Output Vital Signs (last 24 hours): Temp Pulse Resp BP Pulse Ox 98.3 F 89 20 175/85 H 100 02/18/17 15:51 02/18/17 15:51 02/18/17 15:51 02/18/17 15:51 02/18/17 15:51 - Medications Medications: Current Medications Allopurinol (Zyloprim) 300 mg PO DAILY [facility] Last Admin: 02/18/17 09:01 Dose: 300 mg Alprazolam (Xanax) 0.25 mg PO HS PRN PRN Reason: Anxiety Stop: 02/24/17 12:39 Atorvastatin Calcium (Lipitor) 20 mg PO HS [facility] Last Admin: 02/17/17 21:25 Dose: 20 mg Clonidine HCl (Catapres) 0.2 mg PO BID [facility] Last Admin: 02/18/17 09:05 Dose: 0.2 mg Clopidogrel Bisulfate (Plavix) 75 mg PO DAILY [facility] Last Admin: 02/18/17 09:02 Dose: 75 mg Diphenhydramine HCl (Benadryl) 25 mg PO HS PRN PRN Reason: Sleep Last Admin: 02/17/17 23:33 Dose: 25 mg Ergocalciferol (Drisdol 50,000 Intl Units Cap) 1 cap PO FR BIGG Famotidine (Pepcid) 20 mg PO BID [facility] Last Admin: 02/18/17 09:02 Dose: 20 mg Fluticasone Propionate (Flonase) 1 spr GOPI DAILY PRN PRN Reason: Allergy symptoms Furosemide (Lasix) 40 mg PO BID [facility] Last Admin: 02/18/17 09:03 Dose: 40 mg Heparin Sodium (Porcine) (Heparin) 5,000 units SC Q12 BIGG PRN Reason: Protocol Last Admin: 02/18/17 09:03 Dose: 5,000 units Home Med (Levalbuterol Tartrate [Xopenex Hfa]) 2 puff IH Q6H PRN PRN Reason: Shortness of Breath Home Med (Ranolazine [Ranexa]) 500 mg PO BID [facility] Home Med (Vilazodone Hcl [Viibryd]) 20 mg PO DAILY [facility] Hydrocortisone (Cortizone 1% Cream) 1 applic TOP BID [facility] Last Admin: 02/18/17 09:00 Dose: 1 applic Iron Sucrose 200 mg/ Sodium (Chloride) 110 mls @ 110 mls/hr IVPB ONCE ONE Stop: 02/18/17 17:29 Iron Sucrose 100 mg/ Sodium (Chloride) 105 mls @ 110 mls/hr IVPB DAILY [facility] Insulin Detemir (Levemir) 20 units SC DAILY [facility] Last Admin: 02/18/17 09:04 Dose: 20 u Insulin Detemir (Levemir) 30 units SC HS [facility] Insulin Human Lispro (Humalog) 0 units SC ACHS [facility] PRN Reason: Protocol Last Admin: 02/18/17 12:57 Dose: Not Given Insulin Human Lispro (Humalog) 14 units SC AC [facility] Last Admin: 02/18/17 13:16 Dose: 14 u Levothyroxine Sodium (Synthroid) 200 mcg PO ACB [facility] Last Admin: 02/18/17 09:02 Dose: 200 mcg Loratadine (Claritin) 10 mg PO HS [facility] Last Admin: 02/17/17 21:25 Dose: 10 mg Metformin HCl (Glucophage) 500 mg PO BID [facility] Last Admin: 02/18/17 09:03 Dose: 500 mg Montelukast Sodium (Singulair) 10 mg PO HS [facility] Last Admin: 02/17/17 21:25 Dose: 10 mg Nystatin (Nystop Topical Powder) 1 applic TOP TID [facility] Last Admin: 02/18/17 09:01 Dose: 1 applic Potassium Chloride (K-Dur 20 Meq Er Tab) 40 meq PO BID [facility] Last Admin: 02/18/17 09:03 Dose: 40 meq - Labs Labs: 02/17/17 09:28 02/18/17 04:10 PT 14.0 Seconds (9.8-13.1) H 02/17/17 09:28 INR 1.2 (0.9-1.2) 02/17/17 09:28 APTT 39.1 Seconds (25.6-37.1) H 02/17/17 09:28 - Constitutional Appears: Non-toxic, No Acute Distress, Other (obese ) - Head Exam Additional comments: right eye patch with remote tumor removal history - Eye Exam Pupil Exam: NORMAL ACCOMODATION - ENT Exam ENT Exam: Mucous Membranes Moist, Normal Exam - Neck Exam Neck Exam: Full ROM, Normal Inspection - Respiratory Exam Respiratory Exam: Clear to Ausculation Bilateral, NORMAL BREATHING PATTERN. absent: Rales, Rhonchi, Wheezes - Cardiovascular Exam Cardiovascular Exam: REGULAR RHYTHM, RRR, +S1, +S2. absent: JVD - GI/Abdominal Exam GI & Abdominal Exam: Soft, Normal Bowel Sounds. absent: Distended, Guarding, Rebound - Rectal Exam Rectal Exam: Deferred - Extremities Exam Extremities Exam: absent: Calf Tenderness, Pedal Edema - Back Exam Back Exam: NORMAL INSPECTION - Neurological Exam Neurological Exam: Alert, Awake, CN II-XII Intact, Oriented x3 Neuro motor strength exam: Left Upper Extremity: 4, Right Upper Extremity: 5, Left Lower Extremity: 5, Right Lower Extremity: 5 - Psychiatric Exam Psychiatric exam: Normal Affect - Skin Skin Exam: Dry, Intact, Pallor, Warm Assessment and Plan - Assessment and Plan (Free Text) Assessment: 47-year-old female with a long-standing history of bronchial asthma, also with history of CVA, morbid obesity, sinusitis, and suspected obesity/ hypoventilation syndrome,diabetes mellitus type II, cardiomyopathy, coronary artery disease with 4 stents, history of pulmonary embolism,history of right eye malignant tumor in 1976, presented with a complaint of sudden onset left upper and left lower any weakness when she woke up. She noted that when trying to walk to the bathroom and felt like she was "out of control of her left leg" . After a concern that she might fall secondary to weakness, she came to the emergency department. Here in the ED, code stroke was called given her symptoms. CT scan without contrast was performed showed no significant interval change from previous head CT on 02/10/2016. The head and neck CT was also performed revealing asymmetric severe narrowing of the right posterior cerebral artery which may be related to severe underlying atherosclerosis. Her symptoms improved during her stay in the ED. Dr. Hoyt, neurologist, was consulted on the patient. The patient was also noted to have anemia with a hemoglobin of 8.[address] Renan Vizcaino was called. Given the concern for CVA, the patient was placed on telemetry observation overnight for further monitoring and workup.Patient denies chest pain, shortness of breath, fevers, chills, nausea, vomiting, diarrhea, headache but complains of unsteady gait and left arm weakness. 1.Left sided weakness, r/o CVA vs TIA Still complains of left arm weakness and unsteady gait CTA neck showed severe narrowing of the right posterior cerebral artery. Consultation with Dr. Hoyt appreciated F/u MRI brain PT/OT/ST consultation Continue Aspirin/Plavix/ statin allow permissive hypertension 2.Acute on chronic anemia Consultation with Dr. Vizcaino, heme/onc patient had recent bone marrow that showed only iron deficiency Iron levels 30 , iron saturation 75 will give Venofer IV 3.Chronic bronchial asthma Consultation with Dr. Dumont Patient saturating well, hemodynamically stable continue Claritin 10 mg po HS Continue Singulair 10 mg po HS 4.DM type [address] Subramanian Lispro sliding scale initiated Levemir SC BID and Humalog Accuchecks AC+HS 5.CAD with stents Continue ASA, Plavix, statin as above 6.Hypothyroidism Continue Synthroid 7. Morbid obesity BMI 54 8. Pancytopenia Hematology following Recent bone marrow bx showed only iron deficiency 9. DVT prophylaxis Heparin SQ 10.GERD prophylaxis Pepcid 20 mg po BID
[2017-02-18] MEDS ORDERED: Potassium Chloride 20 mEq/15 ml LIQ UD PO ONE (16:46)
[2017-02-18] MEDS: Patient's Own Med (Vilazodone Hcl [Viibryd] 20 mg) PO SCH (18:32)
--- NOTE | 2017-02-18 20:25 | PN ---
DATE: 02/18/2017 TIME OF EVALUATION: 7:05 p.m. 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 PHYSICAL EXAMINATION VITAL SIGNS: Blood pressure 172/89, mean arterial pressure of 115, respiratory rate 18, temperature 98.3, pulse rate 89. The patient's examination is unchanged compared with yesterday's examination; however, she was able to stand up on her own with difficulty on her left side. Recommended workup, MRI, is still pending. She is scheduled to have it done today, this evening. Continue present management. The patient is tolerating well with antiplatelet Aggrenox and Plavix. Darren Hoyt MD
--- NOTE | 2017-02-18 20:34 | MRI ---
EXAM: MR Head Without Intravenous Contrast CLINICAL HISTORY: 47 years old, female; Condition or disease; Other: Ataxic hemiparesis; Additional info: Ataxic hemiparesis - left lower brainstem ischemi TECHNIQUE: Magnetic resonance images of the head/brain without intravenous contrast in multiple planes. COMPARISON: CTA HEAD NECK BUNDLE 2017-02-17 09:52 FINDINGS: Brain: Mild atrophy. No intracranial hemorrhage. No mass. No abnormal restricted diffusion. Ventricles: No hydrocephalus. Bones/joints: No acute fracture. Postsurgical changes of RIGHT orbit. Sinuses: No acute sinusitis. Mastoid air cells: No mastoid effusion. Orbits: RIGHT phthisis bulbi with prosthesis. IMPRESSION: 1. No MRI evidence of acute infarction. 2. Incidental/non-acute findings are described above.
[2017-02-19 06:13] LABS: HEMATOCRIT 24.4 % (34.0-47.0); MEAN CELL VOLUME 82.4 fl (81.0-99.0); MEAN CORPUSCULAR HEMOGLOBIN 26.6 pg (27.0-31.0); MEAN CORPUSCULAR HGB CONC 32.3 g/dL (33.0-37.0); RED CELL DISTRIBUTION WIDTH 15.8 % (11.5-14.5)
[2017-02-19] MEDS: Levothyroxine 200 MCG TAB PO SCH (06:31)
[2017-02-19] MEDS: Insulin Lispro (humaLOG) 100 Units/ml Inj SC SCH ×7 (06:45→21:31)
[2017-02-19 07:20] LABS: BLOOD UREA NITROGEN 14 mg/dl (7-17); CALCIUM 8.3 mg/dL (8.4-10.2); CARBON DIOXIDE 30 mmol/L (22-30); CHLORIDE 103 mmol/L (98-107); GFR AFRICAN-AMERICAN > 60; GLUCOSE,RANDOM 161 mg/dL (65-105); POTASSIUM 3.4 MMOL/L (3.6-5.0); SODIUM 141 mmol/l (132-148)
--- NOTE | 2017-02-19 08:34 | CP.PCM.CON ---
History of Present Illness - History of Present Illness History of Present Illness: This 47 year old female was initially seen in the emergency room on the day of admission. She was in her usual state of health at home when she developed weakness of the left side of her body and was unable to stand unassisted. She did not have slurred speech, headache, nausea, vomiting or visual problems. She had gone to bed the night before in her usual state of health. While still in the emergency room her symptoms began to show signs of improving. 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 Hypertension. Hypocalcemia. Hyponatremia. Bronchial asthma since age 15. Morbid obesity with attempted lap band surgery in 2010 which was aborted because of cardiac arrest. Pulmonary embolism in 1999. Myocardial infarction 2004 followed by angioplasty. PTCA with stenting in 2006 and again in 2009. Left bundle branch block diagnosed in 2016. Chronic thrombocytopenia. Multiple colonic and gastric polyps. Chronic depression. Chronic iron deficiency anemia. 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 Morbid obesity and ULICES. Past surgical history: Aborted attempt for lap band surgery in 2010. Allergies: Penicillin-anaphylaxis. Sulfa drugs-generalized rash. Codeine-visual hallucinations. Ciprofloxacin-nausea and vomiting. Amlodipine-generalized rash. Foodstuffs such as yellow mustard, sun-dried tomatoes, filbert resulted in generalized rash and anaphylaxis with kiwi. Social history: Never smoker. No alcohol intake. Denies illicit drug use. Family history: Mother-hypertension, melanoma. Father-COPD, colon cancer, coronary artery disease, diabetes mellitus, CAD with prior HI. Past Patient History - Infectious Disease Hx of Infectious Diseases: None - Past Medical History & Family History Past Medical History?: Yes - Past Social History Smoking Status: Never Smoked - CARDIAC Hx Congestive Heart Failure: Yes Hx Hypercholesterolemia: Yes Hx Hypertension: Yes Hx Peripheral Edema: Yes - PULMONARY Hx Asthma: Yes Hx Bronchitis: Yes Hx Pulmonary Embolism: Yes Hx Sleep Apnea: Yes (use c-pap) - NEUROLOGICAL Hx Transient Ischemic Attacks (TIA): Yes - HEENT Hx Blind: Yes (RT EYE) - RENAL Hx Chronic Kidney Disease: No - ENDOCRINE/METABOLIC Hx Hypothyroidism: Yes - HEMATOLOGICAL/ONCOLOGICAL Hx Blood Disorders: Yes Hx Anemia: Yes Hx Human Immunodeficiency Virus (HIV): No - INTEGUMENTARY Hx Dermatological Problems: No - MUSCULOSKELETAL/RHEUMATOLOGICAL Hx Arthritis: Yes Hx Falls: No Hx Osteoporosis: Yes - GASTROINTESTINAL Hx Gastrointestinal Disorders: Yes Hx Gastroesophageal Reflux: Yes - GENITOURINARY/GYNECOLOGICAL Hx Genitourinary Disorders: No - PSYCHIATRIC Hx Anxiety: Yes Hx Depression: Yes - SURGICAL HISTORY Hx Coronary Stent: Yes (3x) Hx Tonsillectomy: Yes Hx Tubal Ligation: Yes Other/Comment: Endoscopy - ANESTHESIA Hx Anesthesia: Yes Hx Anesthesia Reactions: Yes (BREATHING, VOMITTING) Hx Malignant Hyperthermia: No Meds Allergies/Adverse Reactions: Allergies Allergy/AdvReac Type Severity Reaction Status Date / Time ciprofloxacin Allergy NAUSEA Verified 02/17/17 09:09 codeine Allergy FATIGUE Verified 02/17/17 09:09 kiwi Allergy RASH Verified 02/17/17 09:09 mustard Allergy RASH Verified 02/17/17 09:09 Penicillins Allergy ANAPHYLAXIS Verified 02/17/17 09:09 pepper Allergy RASH Verified 02/17/17 09:09 Sulfa (Sulfonamide Allergy RASH Verified 02/17/17 09:09 Antibiotics) tomato Allergy RASH Verified 02/17/17 09:09 amlodipine [From Norvasc] AdvReac RASH Verified 02/17/17 09:09 metoclopramide HCl AdvReac DIZZINESS Verified 02/17/17 09:09 [From Reglan] filberts Allergy SWELLING Uncoded 01/05/17 10:01 - Medications Medications: Current Medications Allopurinol (Zyloprim) 300 mg PO DAILY [facility] Last Admin: 02/18/17 09:01 Dose: 300 mg Alprazolam (Xanax) 0.25 mg PO HS PRN PRN Reason: Anxiety Stop: 02/24/17 12:39 Last Admin: 02/18/17 18:40 Dose: 0.25 mg Atorvastatin Calcium (Lipitor) 20 mg PO HS [facility] Last Admin: 02/18/17 21:29 Dose: 20 mg Clonidine HCl (Catapres) 0.2 mg PO BID [facility] Last Admin: 02/18/17 17:59 Dose: 0.2 mg Clopidogrel Bisulfate (Plavix) 75 mg PO DAILY [facility] Last Admin: 02/18/17 09:02 Dose: 75 mg Diphenhydramine HCl (Benadryl) 25 mg PO HS PRN PRN Reason: Sleep Last Admin: 02/17/17 23:33 Dose: 25 mg Ergocalciferol (Drisdol 50,000 Intl Units Cap) 1 cap PO FR [facility] Famotidine (Pepcid) 20 mg PO BID [facility] Last Admin: 02/18/17 17:58 Dose: 20 mg Fluticasone Propionate (Flonase) 1 spr GOPI DAILY PRN PRN Reason: Allergy symptoms Furosemide (Lasix) 40 mg PO BID [facility] Last Admin: 02/18/17 17:59 Dose: 40 mg Heparin Sodium (Porcine) (Heparin) 5,000 units SC Q12 BIGG PRN Reason: Protocol Last Admin: 02/18/17 21:28 Dose: Not Given Home Med (Levalbuterol Tartrate [Xopenex Hfa]) 2 puff IH Q6H PRN PRN Reason: Shortness of Breath Home Med (Ranolazine [Ranexa]) 500 mg PO BID [facility] Last Admin: 02/18/17 18:32 Dose: 500 mg Home Med (Vilazodone Hcl [Viibryd]) 20 mg PO DAILY [facility] Last Admin: 02/18/17 18:32 Dose: 20 mg Hydrocortisone (Cortizone 1% Cream) 1 applic TOP BID [facility] Last Admin: 02/18/17 18:00 Dose: Not Given Iron Sucrose 100 mg/ Sodium (Chloride) 105 mls @ 110 mls/hr IVPB DAILY [facility] Insulin Detemir (Levemir) 20 units SC DAILY [facility] Last Admin: 02/18/17 09:04 Dose: 20 u Insulin Detemir (Levemir) 30 units SC HS [facility] Last Admin: 02/18/17 23:13 Dose: 30 u Insulin Human Lispro (Humalog) 0 units SC ACHS [facility] PRN Reason: Protocol Last Admin: 02/19/17 06:45 Dose: Not Given Insulin Human Lispro (Humalog) 14 units SC AC [facility] Last Admin: 02/18/17 18:00 Dose: 14 u Levothyroxine Sodium (Synthroid) 200 mcg PO ACB [facility] Last Admin: 02/19/17 06:31 Dose: 200 mcg Loratadine (Claritin) 10 mg PO HS [facility] Last Admin: 02/18/17 21:27 Dose: 10 mg Metformin HCl (Glucophage) 500 mg PO BID [facility] Last Admin: 02/18/17 17:58 Dose: 500 mg Montelukast Sodium (Singulair) 10 mg PO HS [facility] Last Admin: 02/18/17 21:29 Dose: 10 mg Nystatin (Nystop Topical Powder) 1 applic TOP TID [facility] Last Admin: 02/18/17 18:00 Dose: 1 applic Potassium Chloride (K-Dur 20 Meq Er Tab) 40 meq PO BID [facility] Last Admin: 02/18/17 17:59 Dose: 40 meq Physical Exam - Additional Findings Additional findings: Morbidly obese female who is alert and oriented. She is wearing an eye patch over the right orbit. Her speech is fluent and her memory is intact. Mild left upper extremity weakness noted. There is no palpable lymphadenopathy. The nostrils are patent but appear hyperemic bilaterally. No bleeding or exudate. EACs are patent and TMs are intact bilaterally. The left eye appears grossly normal and the conjunctivae is pink. The pharynx is pink and mucous membranes are moist. No exudate. The neck is supple and trachea is midline. No neck vein distention or carotid bruit. No palpable thyromegaly. No dullness on chest percussion. Vocal tactile fremitus is diminished bilaterally. Breath sounds are diminished bilaterally but otherwise unremarkable. The heart sounds are slightly distant but the rhythm is regular. No murmurs heard. The abdomen is morbidly obese with a large pannus. The liver is palpable 5 fingers below the right costal margin. Bowel sounds are heard and normal in character. 1+ dependent edema is noted in both lower extremities. No cyanosis. No calf tenderness. Unable to palpate pulses in the ankles and feet bilaterally. Results - Vital Signs Recent Vital Signs: Last Vital Signs Temp 97.7 F 02/19/17 08:12 Pulse 71 02/19/17 08:12 Resp 18 02/19/17 08:12 BP 162/82 H 02/19/17 08:12 Pulse Ox 96 02/19/17 08:12 - Labs Result Diagrams: 02/22/17 05:55 02/22/17 05:55 Labs: Laboratory Results - last 24 hr 02/18/17 02/18/17 02/18/17 04:10 04:10 04:10 WBC RBC Hgb Hct MCV MCH MCHC RDW Plt Count Sodium Potassium Chloride Carbon Dioxide Anion Gap BUN Creatinine Est GFR ( Amer) Est GFR (Non-Af Amer) POC Glucose (mg/dL) Random Glucose Calcium TIBC 415 % Saturation 7 L Ferritin 14.0 Vitamin B12 805 Cortisol AM Sample 3.2 L 02/18/17 02/18/17 02/18/17 11:48 16:39 21:43 WBC RBC Hgb Hct MCV MCH MCHC RDW Plt Count Sodium Potassium Chloride Carbon Dioxide Anion Gap BUN Creatinine Est GFR ( Amer) Est GFR (Non-Af Amer) POC Glucose (mg/dL) 222 H 266 H 237 H Random Glucose Calcium TIBC % Saturation Ferritin Vitamin B12 Cortisol AM Sample 02/19/17 02/19/17 02/19/17 04:57 05:40 05:40 WBC 3.0 L RBC 2.97 L Hgb 7.9 L Hct 24.4 L MCV 82.4 MCH 26.6 L MCHC 32.3 L RDW 15.8 H Plt Count 118 L Sodium 141 Potassium 3.4 L Chloride 103 Carbon Dioxide 30 Anion Gap 11 BUN 14 Creatinine 1.0 Est GFR ( Amer) > 60 Est GFR (Non-Af Amer) 60 POC Glucose (mg/dL) 202 H Random Glucose 161 H Calcium 8.3 L TIBC % Saturation Ferritin Vitamin B12 Cortisol AM Sample Assessment & Plan (1) TIA (transient ischemic attack) Assessment and Plan: R/O CVA Status: Acute Priority: High (2) Asthma Assessment and Plan: Stable. Status: Chronic Priority: High (3) Morbid obesity Status: Chronic Priority: High (4) Anemia Status: Chronic Priority: High (5) Obstructive sleep apnea (adult) (pediatric) Assessment and Plan: Using nCPAP at home. Status: Chronic Priority: High (6) Obesity hypoventilation syndrome Status: Chronic Priority: High - Date & Time Date: 02/19/17 Time: 08:41
[2017-02-19] MEDS ORDERED: Dexamethasone/Tobramycin Ophth Susp OU SCH (09:00)
[2017-02-19] MEDS: Potassium Chloride 20 mEq ER Tab PO SCH ×2 (10:19→17:23)
[2017-02-19] MEDS: Patient's Own Med (Vilazodone Hcl [Viibryd] 20 mg) PO SCH (10:20)
[2017-02-19] MEDS: Insulin Detemir 100 Units/ml Inj SC SCH ×2 (10:22→21:32)
[2017-02-19] MEDS ORDERED: Ergocalciferol 50,000 Intl Units Cap PO SCH (12:38)
[2017-02-19] MEDS ORDERED: Potassium Chloride 20 mEq/15 ml LIQ UD PO ONE (14:10)
--- NOTE | 2017-02-19 14:26 | CP.PCM.PN ---
Subjective - Date & Time of Evaluation Date of Evaluation: 02/19/17 Time of Evaluation: 15:00 - Subjective Subjective: Patient seen and examined bedside.Still complains of numbness and tingling sensation to her left side of her head, dizziness and unsteady gait. States that she is afraid to go home because she might fall. No acute issues overnight Objective - Vital Signs/Intake and Output Vital Signs (last 24 hours): Temp Pulse Resp BP Pulse Ox 97.6 F 76 19 156/84 H 97 02/19/17 12:24 02/19/17 12:24 02/19/17 12:24 02/19/17 12:24 02/19/17 12:24 - Medications Medications: Current Medications Albuterol (Ventolin Hfa 90 Mcg/Actuation (8 G)) 2 puff IH Q6H PRN PRN Reason: Shortness of Breath Allopurinol (Zyloprim) 300 mg PO DAILY [facility] Last Admin: 02/19/17 10:23 Dose: 300 mg Alprazolam (Xanax) 0.25 mg PO HS PRN PRN Reason: Anxiety Stop: 02/24/17 12:39 Last Admin: 02/18/17 18:40 Dose: 0.25 mg Atorvastatin Calcium (Lipitor) 20 mg PO HS [facility] Last Admin: 02/18/17 21:29 Dose: 20 mg Clonidine HCl (Catapres) 0.2 mg PO BID [facility] Last Admin: 02/19/17 10:24 Dose: 0.2 mg Clopidogrel Bisulfate (Plavix) 75 mg PO DAILY [facility] Last Admin: 02/19/17 10:20 Dose: 75 mg Diphenhydramine HCl (Benadryl) 25 mg PO HS PRN PRN Reason: Sleep Last Admin: 02/17/17 23:33 Dose: 25 mg Ergocalciferol (Drisdol 50,000 Intl Units Cap) 1 cap PO FR [facility] Famotidine (Pepcid) 20 mg PO BID [facility] Last Admin: 02/19/17 10:20 Dose: 20 mg Fluticasone Propionate (Flonase) 1 spr GOPI DAILY PRN PRN Reason: Allergy symptoms Furosemide (Lasix) 40 mg PO BID [facility] Last Admin: 02/19/17 10:22 Dose: 40 mg Heparin Sodium (Porcine) (Heparin) 5,000 units SC Q12 [facility] PRN Reason: Protocol Last Admin: 02/19/17 10:48 Dose: Not Given Home Med (Ranolazine [Ranexa]) 500 mg PO BID [facility] Last Admin: 02/19/17 10:21 Dose: 500 mg Home Med (Vilazodone Hcl [Viibryd]) 20 mg PO DAILY [facility] Last Admin: 02/19/17 10:20 Dose: 20 mg Hydrocortisone (Cortizone 1% Cream) 1 applic TOP BID [facility] Last Admin: 02/19/17 10:17 Dose: Not Given Iron Sucrose 100 mg/ Sodium (Chloride) 105 mls @ 110 mls/hr IVPB DAILY [facility] Last Admin: 02/19/17 12:33 Dose: 110 mls/hr Insulin Detemir (Levemir) 20 units SC DAILY [facility] Last Admin: 02/19/17 10:22 Dose: 20 u Insulin Detemir (Levemir) 30 units SC HS [facility] Last Admin: 02/18/17 23:13 Dose: 30 u Insulin Human Lispro (Humalog) 0 units SC ACHS [facility] PRN Reason: Protocol Last Admin: 02/19/17 12:29 Dose: Not Given Insulin Human Lispro (Humalog) 14 units SC AC [facility] Last Admin: 02/19/17 12:29 Dose: 14 u Levothyroxine Sodium (Synthroid) 200 mcg PO ACB [facility] Last Admin: 02/19/17 06:31 Dose: 200 mcg Lisinopril (Zestril) 10 mg PO DAILY [facility] Loratadine (Claritin) 10 mg PO HS [facility] Last Admin: 02/18/17 21:27 Dose: 10 mg Metformin HCl (Glucophage) 500 mg PO BID [facility] Last Admin: 02/19/17 10:17 Dose: 500 mg Montelukast Sodium (Singulair) 10 mg PO HS [facility] Last Admin: 02/18/17 21:29 Dose: 10 mg Nystatin (Nystop Topical Powder) 1 applic TOP TID [facility] Last Admin: 02/19/17 12:33 Dose: 1 applic Potassium Chloride (K-Dur 20 Meq Er Tab) 40 meq PO BID [facility] Last Admin: 02/19/17 10:19 Dose: 40 meq - Labs Labs: 02/19/17 05:40 02/19/17 05:40 PT 14.0 Seconds (9.8-13.1) H 02/17/17 09:28 INR 1.2 (0.9-1.2) 02/17/17 09:28 APTT 39.1 Seconds (25.6-37.1) H 02/17/17 09:28 - Constitutional Appears: Non-toxic, No Acute Distress, Other (morbidly obese ) - Head Exam Head Exam: NORMOCEPHALIC Additional comments: right eye tumor removal with patch - ENT Exam ENT Exam: Mucous Membranes Moist, Normal Exam - Neck Exam Neck Exam: Normal Inspection - Respiratory Exam Respiratory Exam: Clear to Ausculation Bilateral, NORMAL BREATHING PATTERN. absent: Rhonchi, Wheezes, Respiratory Distress - Cardiovascular Exam Cardiovascular Exam: REGULAR RHYTHM, RRR. absent: JVD - GI/Abdominal Exam GI & Abdominal Exam: Soft, Normal Bowel Sounds. absent: Distended, Tenderness, Rebound - Rectal Exam Rectal Exam: Deferred - Extremities Exam Extremities Exam: Full ROM. absent: Calf Tenderness, Pedal Edema - Back Exam Back Exam: NORMAL INSPECTION - Neurological Exam Neurological Exam: Alert, Awake, CN II-XII Intact, Oriented x3 Neuro motor strength exam: Left Upper Extremity: 4, Right Upper Extremity: 5, Left Lower Extremity: 5, Right Lower Extremity: 5 Additional comments: unstable gait - Psychiatric Exam Psychiatric exam: Anxious, Depressed - Skin Skin Exam: Dry, Pallor, Warm Assessment and Plan - Assessment and Plan (Free Text) Assessment: 47-year-old female with a long-standing history of bronchial asthma, also with history of CVA, morbid obesity, sinusitis, and suspected obesity/ hypoventilation syndrome,diabetes mellitus type II, cardiomyopathy, coronary artery disease with 4 stents, history of pulmonary embolism,history of right eye malignant tumor in 1976, presented with a complaint of sudden onset left upper and left lower any weakness when she woke up. She noted that when trying to walk to the bathroom and felt like she was "out of control of her left leg" . After a concern that she might fall secondary to weakness, she came to the emergency department. Here in the ED, code stroke was called given her symptoms. CT scan without contrast was performed showed no significant interval change from previous head CT on 02/10/2016. The head and neck CT was also performed revealing asymmetric severe narrowing of the right posterior cerebral artery which may be related to severe underlying atherosclerosis. Her symptoms improved during her stay in the ED. Dr. Hoyt, neurologist, was consulted. The patient was also noted to have anemia with a hemoglobin of 8.[address] Renan Vizcaino was called. Given the concern for CVA, the patient was admitted on telemetry for further monitoring and workup.Patient still with left side weakness and unsteady gait. MRI showed no acute CVA PT consulted and recommended more physical therapy due to unsteady gait. 1.Left sided weakness Still complains of left arm weakness and unsteady gait CTA neck showed severe narrowing of the right posterior cerebral artery. CT and MRI head showed no acute stroke possibly patient's symptoms are multifactorial : related to peripheral neuropathy with radiculopathy vitamin B12 , TSH, vitamin D - normal Consultation with Dr. Hoyt appreciated Continue PT while in house for gait training. patient referred to TCU Continue Plavix/ statin d/c and and start Aggrenox as per Neuro Better BP control 2.Acute on chronic anemia Consultation with Dr. Vizcaino, heme/onc appreciated patient had recent bone marrow that showed only iron deficiency Iron levels 30 , iron saturation 75 will give Venofer IV for 3 days Hgb 7.9 today repeat in AM 3.Chronic bronchial asthma Consultation with Dr. Dumont Patient saturating well, hemodynamically stable continue Claritin 10 mg po HS Continue Singulair 10 mg po HS 4.DM type [address] Subramanian apprexciated Lispro sliding scale initiated Levemir SC BID and Humalog Accuchecks AC+HS 5.CAD with stents Continue ASA, Plavix, statin 6.Hypothyroidism Continue Synthroid 7. Morbid obesity BMI 54 8. Pancytopenia Hematology following Recent bone marrow bx showed only iron deficiency 9. DVT prophylaxis d/c heparin due to anemia on Plavix and aggrenox 10.GERD prophylaxis Pepcid 20 mg po BID
--- NOTE | 2017-02-20 00:20 | PN ---
ENDOCRINOLOGY FOLLOWUP NOTE DATE: LOCATION: Room 418. SUBJECTIVE: This is a 47-year-old female with recent uncontrolled type 1 insulin-dependent diabetes, presenting here with a transient ischemic attack and continues to have residual left-sided weakness; although, this improved remarkably since admission, and is now undergoing neurological workup and management and is also being followed closely for metabolic management. Her oral intake is quite variable at this time as per the nursing staff and her glucose values today have ranged from 163 to 202 and 237 mg/dL. Her latest chemistry shows a BUN of 14, sodium 141, potassium 3.4, chloride 103, CO2 30, glucose 161, and creatinine 1.0. Her glucose levels were 237 to 266 yesterday as noted. ASSESSMENT: This is a 47-year-old female with recent uncontrolled type 1 insulin-dependent diabetes with marked hyperglycemic accelerations related to the intercurrent physical stressors since she actually has a very optimal metabolic control on the outpatient with the latest A1c done this month of 6.9% as noted. She also has diabetic microvascular complications of retinopathy and polyneuropathy with diabetic macrovascular complications of coronary artery disease with previous coronary stent placements and peripheral arterial disease and vasculopathy with a recent cerebrovascular disease, presenting here with recurrent transient ischemic attacks as noted. PLAN OF MANAGEMENT: As discussed with the patient and staff. We will modify her current basal and bolus insulin regimen and increase the Humalog to 14 units subcu t.i.d. before meals, to start today as ordered. We will also increase the basal insulin with Levemir, to be given as 20 units subcu at bedtime daily, to start tonight. We will continue the low-dose correction scale using Humalog insulin as given. We will continue the metformin given as 500 mg b.i.d. as ordered with the underlying increased insulin resistance thereof. We will obtain serial chemistry and supplement accordingly as needed. We will follow. Lupe Subramanian MD
--- NOTE | 2017-02-20 00:27 | PN ---
DATE: 02/19/2017 NEUROLOGICAL PROBLEM: Lower brainstem stroke with ataxic hemiparesis. PHYSICAL EXAMINATION: VITAL SIGNS: Blood pressure 118/73, mean arterial pressure of 88, respiratory rate of 16, temperature 97.7, pulse rate 69. GENERAL: The patient is more awake, alert, oriented to person, place and time. Weakness is somewhat improved on her left side. She could able to ambulate by her own. Examination is unchanged compared with my yesterday's exam. LABORATORY DATA: MRI of the brain reviewed, no acute pathology is noted. ASSESSMENT AND PLAN: Continue the present management. If medically stable, the patient can be discharged to rehabilitation. The patient will be followed as outpatient. Darren Hoyt MD
[2017-02-20] MEDS: Insulin Lispro (humaLOG) 100 Units/ml Inj SC SCH ×7 (06:41→21:58)
[2017-02-20] MEDS: Levothyroxine 200 MCG TAB PO SCH (06:43)
[2017-02-20 08:07] LABS: HEMATOCRIT 25.4 % (34.0-47.0); MEAN CORPUSCULAR HEMOGLOBIN 26.3 pg (27.0-31.0); MEAN CORPUSCULAR HGB CONC 32.1 g/dL (33.0-37.0); RED CELL DISTRIBUTION WIDTH 16.6 % (11.5-14.5); WHITE BLOOD COUNT 3.7 K/uL (4.8-10.8)
[2017-02-20 08:18] LABS: BLOOD UREA NITROGEN 16 mg/dl (7-17); CALCIUM 8.3 mg/dL (8.4-10.2); CARBON DIOXIDE 30 mmol/L (22-30); CHLORIDE 104 mmol/L (98-107); GFR AFRICAN-AMERICAN > 60; GLUCOSE,RANDOM 102 mg/dL (65-105); POTASSIUM 3.6 MMOL/L (3.6-5.0); SODIUM 142 mmol/l (132-148)
[2017-02-20] MEDS: Aspirin-Dipyridamole 200-25 mg ER Cap PO SCH ×2 (08:26→16:07)
[2017-02-20] MEDS: Potassium Chloride 20 mEq ER Tab PO SCH ×2 (08:28→16:07)
[2017-02-20] MEDS: Patient's Own Med (Vilazodone Hcl [Viibryd] 20 mg) PO SCH (08:30)
--- NOTE | 2017-02-20 08:51 | CP.PCM.PN ---
Subjective - Date & Time of Evaluation Date of Evaluation: 02/20/17 Time of Evaluation: 08:50 - Subjective Subjective: Pt still has weakness in the left sie. Her hgb today is 8.2 gms. Will continue 200 mg of venofer daily for 4 days. Objective - Vital Signs/Intake and Output Vital Signs (last 24 hours): Temp Pulse Resp BP Pulse Ox 97.7 F 71 18 155/72 H 99 02/20/17 08:00 02/20/17 08:33 02/20/17 08:00 02/20/17 08:33 02/20/17 08:00 - Medications Medications: Current Medications Acetaminophen (Tylenol 325mg Tab) 650 mg PO Q6 PRN PRN Reason: Pain, Mild (1-3) Last Admin: 02/20/17 02:58 Dose: 650 mg Albuterol (Ventolin Hfa 90 Mcg/Actuation (8 G)) 2 puff IH Q6H PRN PRN Reason: Shortness of Breath Allopurinol (Zyloprim) 300 mg PO DAILY [facility] Last Admin: 02/20/17 08:30 Dose: 300 mg Alprazolam (Xanax) 0.25 mg PO HS PRN PRN Reason: Anxiety Stop: 02/24/17 12:39 Last Admin: 02/18/17 18:40 Dose: 0.25 mg Atorvastatin Calcium (Lipitor) 20 mg PO HS [facility] Last Admin: 02/19/17 21:26 Dose: 20 mg Clonidine HCl (Catapres) 0.2 mg PO BID [facility] Last Admin: 02/20/17 08:33 Dose: 0.2 mg Clopidogrel Bisulfate (Plavix) 75 mg PO DAILY [facility] Last Admin: 02/20/17 08:29 Dose: 75 mg Diphenhydramine HCl (Benadryl) 25 mg PO HS PRN PRN Reason: Sleep Last Admin: 02/19/17 21:36 Dose: 25 mg Dipyridamole/Aspirin (Aggrenox 25-200 Mg) 1 ea PO BID [facility] Last Admin: 02/20/17 08:26 Dose: 1 ea Ergocalciferol (Drisdol 50,000 Intl Units Cap) 1 cap PO FR [facility] Last Admin: 02/19/17 14:48 Dose: 1 cap Famotidine (Pepcid) 20 mg PO BID [facility] Last Admin: 02/20/17 08:28 Dose: 20 mg Fluticasone Propionate (Flonase) 1 spr GOPI DAILY PRN PRN Reason: Allergy symptoms Furosemide (Lasix) 40 mg PO BID [facility] Last Admin: 02/20/17 08:32 Dose: 40 mg Home Med (Ranolazine [Ranexa]) 500 mg PO BID [facility] Last Admin: 02/20/17 08:29 Dose: 500 mg Home Med (Vilazodone Hcl [Viibryd]) 20 mg PO DAILY [facility] Last Admin: 02/20/17 08:30 Dose: 20 mg Hydrocortisone (Cortizone 1% Cream) 1 applic TOP BID [facility] Last Admin: 02/20/17 08:27 Dose: 1 applic Iron Sucrose 200 mg/ Sodium (Chloride) 110 mls @ 0 mls/hr IVPB DAILY [facility] PRN Reason: As Directed Insulin Detemir (Levemir) 20 units SC DAILY [facility] Last Admin: 02/19/17 10:22 Dose: 20 u Insulin Detemir (Levemir) 30 units SC [facility] Last Admin: 02/19/17 21:32 Dose: 30 units Insulin Human Lispro (Humalog) 0 units SC ACHS [facility] PRN Reason: Protocol Last Admin: 02/20/17 06:41 Dose: Not Given Insulin Human Lispro (Humalog) 14 units SC AC [facility] Last Admin: 02/20/17 08:24 Dose: 14 u Levothyroxine Sodium (Synthroid) 200 mcg PO ACB [facility] Last Admin: 02/20/17 06:43 Dose: 200 mcg Lisinopril (Zestril) 10 mg PO DAILY [facility] Last Admin: 02/20/17 08:31 Dose: 10 mg Loratadine (Claritin) 10 mg PO HS [facility] Last Admin: 02/19/17 21:26 Dose: 10 mg Metformin HCl (Glucophage) 500 mg PO BID [facility] Last Admin: 02/20/17 08:27 Dose: 500 mg Montelukast Sodium (Singulair) 10 mg PO HS [facility] Last Admin: 02/19/17 21:26 Dose: 10 mg Nystatin (Nystop Topical Powder) 1 applic TOP TID [facility] Last Admin: 02/20/17 08:28 Dose: 1 applic Potassium Chloride (K-Dur 20 Meq Er Tab) 40 meq PO BID [facility] Last Admin: 02/20/17 08:28 Dose: 40 meq - Labs Labs: 02/20/17 06:30 02/20/17 07:30 PT 14.0 Seconds (9.8-13.1) H 02/17/17 09:28 INR 1.2 (0.9-1.2) 02/17/17 09:28 APTT 39.1 Seconds (25.6-37.1) H 02/17/17 09:28
[2017-02-20] MEDS: Insulin Detemir 100 Units/ml Inj SC SCH ×2 (10:15→21:57)
--- NOTE | 2017-02-20 14:06 | CP.PCM.PN ---
Subjective - Date & Time of Evaluation Date of Evaluation: 02/20/17 Time of Evaluation: 11:00 - Subjective Subjective: Mrs. Hallman was seen and examined at bedside today. She overall feels better; however she continues to complain of weakness and unsteady gait. She has minimal improvement in her gait and has difficulty ambulating even with the use of a walker. She is also continuing to complain of some numbness and tingling to the left side of her head, although this is getting better. No acute events overnight as per patient or nursing staff. Denies cp, sob, n/v/d, headache. Objective - Vital Signs/Intake and Output Vital Signs (last 24 hours): Temp Pulse Resp BP Pulse Ox 98.0 F 73 18 114/71 99 02/20/17 12:00 02/20/17 12:00 02/20/17 12:00 02/20/17 12:00 02/20/17 12:00 - Medications Medications: Current Medications Acetaminophen (Tylenol 325mg Tab) 650 mg PO Q6 PRN PRN Reason: Pain, Mild (1-3) Last Admin: 02/20/17 02:58 Dose: 650 mg Albuterol (Ventolin Hfa 90 Mcg/Actuation (8 G)) 2 puff IH Q6H PRN PRN Reason: Shortness of Breath Allopurinol (Zyloprim) 300 mg PO DAILY [facility] Last Admin: 02/20/17 08:30 Dose: 300 mg Alprazolam (Xanax) 0.25 mg PO HS PRN PRN Reason: Anxiety Stop: 02/24/17 12:39 Last Admin: 02/18/17 18:40 Dose: 0.25 mg Atorvastatin Calcium (Lipitor) 20 mg PO HS [facility] Last Admin: 02/19/17 21:26 Dose: 20 mg Clonidine HCl (Catapres) 0.2 mg PO BID [facility] Last Admin: 02/20/17 08:33 Dose: 0.2 mg Clopidogrel Bisulfate (Plavix) 75 mg PO DAILY [facility] Last Admin: 02/20/17 08:29 Dose: 75 mg Diphenhydramine HCl (Benadryl) 25 mg PO HS PRN PRN Reason: Sleep Last Admin: 02/19/17 21:36 Dose: 25 mg Dipyridamole/Aspirin (Aggrenox 25-200 Mg) 1 ea PO BID [facility] Last Admin: 02/20/17 08:26 Dose: 1 ea Ergocalciferol (Drisdol 50,000 Intl Units Cap) 1 cap PO FR [facility] Last Admin: 02/19/17 14:48 Dose: 1 cap Famotidine (Pepcid) 20 mg PO BID [facility] Last Admin: 02/20/17 08:28 Dose: 20 mg Fluticasone Propionate (Flonase) 1 spr GOPI DAILY [facility] PRN Reason: Allergy symptoms Furosemide (Lasix) 40 mg PO BID [facility] Last Admin: 02/20/17 08:32 Dose: 40 mg Home Med (Ranolazine [Ranexa]) 500 mg PO BID [facility] Last Admin: 02/20/17 08:29 Dose: 500 mg Home Med (Vilazodone Hcl [Viibryd]) 20 mg PO DAILY [facility] Last Admin: 02/20/17 08:30 Dose: 20 mg Hydrocortisone (Cortizone 1% Cream) 1 applic TOP BID [facility] Last Admin: 02/20/17 08:27 Dose: 1 applic Iron Sucrose 200 mg/ Sodium (Chloride) 110 mls @ 220 mls/hr IVPB DAILY [facility] PRN Reason: As Directed Stop: 02/23/17 09:29 Last Admin: 02/20/17 10:14 Dose: 220 mls/hr Insulin Detemir (Levemir) 20 units SC DAILY [facility] Last Admin: 02/20/17 10:15 Dose: 20 u Insulin Detemir (Levemir) 30 units SC HS [facility] Last Admin: 02/19/17 21:32 Dose: 30 units Insulin Human Lispro (Humalog) 0 units SC ACHS [facility] PRN Reason: Protocol Last Admin: 02/20/17 12:08 Dose: Not Given Insulin Human Lispro (Humalog) 14 units SC AC [facility] Last Admin: 02/20/17 12:08 Dose: 14 u Levothyroxine Sodium (Synthroid) 200 mcg PO ACB [facility] Last Admin: 02/20/17 06:43 Dose: 200 mcg Lisinopril (Zestril) 10 mg PO DAILY [facility] Last Admin: 02/20/17 08:31 Dose: 10 mg Loratadine (Claritin) 10 mg PO HS [facility] Last Admin: 02/19/17 21:26 Dose: 10 mg Metformin HCl (Glucophage) 500 mg PO BID [facility] Last Admin: 10/28/17 08:27 Dose: 500 mg Montelukast Sodium (Singulair) 10 mg PO HS [facility] Last Admin: 02/19/17 21:26 Dose: 10 mg Nystatin (Nystop Topical Powder) 1 applic TOP TID [facility] Last Admin: 02/20/17 12:10 Dose: 1 applic Potassium Chloride (K-Dur 20 Meq Er Tab) 40 meq PO BID [facility] Last Admin: 02/20/17 08:28 Dose: 40 meq - Labs Labs: 02/20/17 06:30 02/20/17 07:30 PT 14.0 Seconds (9.8-13.1) H 02/17/17 09:28 INR 1.2 (0.9-1.2) 02/17/17 09:28 APTT 39.1 Seconds (25.6-37.1) H 02/17/17 09:28 - Additional Findings Additional findings: Physical exam: Constitutional- cooperative, awake, alert. Head- NCAT, PERRL Eye- PERRL, normal accommodation in left eye, patch over right eye. ENT- normal exam, MMM. Neck- normal inspection, supple, no JVD Respiratory- CTAB, no wheezes rales rhonchi Cardiovascular- RRR, +S1, +S2 no MRG GI/Abdominal- normal bowel sounds, soft, no mass, no hsm Skin- warm, dry Extremities Exam- normal capillary refill, normal inspection Neurological Exam: CN II-XII Intact, Oriented x3 Neuro motor strength exam: Left Upper Extremity: 4, Right Upper Extremity: 5, Left Lower Extremity: 5, Right Lower Extremity: 5 Psych- normal mood, normal affect Assessment and Plan - Assessment and Plan (Free Text) Plan: Assessment: 47-year-old female with a long-standing history of bronchial asthma, also with history of CVA, morbid obesity, sinusitis, and suspected obesity/ hypoventilation syndrome,diabetes mellitus type II, cardiomyopathy, coronary artery disease with 4 stents, history of pulmonary embolism,history of right eye malignant tumor in 1976, presented with a complaint of sudden onset left upper and left lower any weakness when she woke up. She noted that when trying to walk to the bathroom and felt like she was "out of control of her left leg" . After a concern that she might fall secondary to weakness, she came to the emergency department. Here in the ED, code stroke was called given her symptoms. CT scan without contrast was performed showed no significant interval change from previous head CT on 02/10/2016. The head and neck CT was also performed revealing asymmetric severe narrowing of the right posterior cerebral artery which may be related to severe underlying atherosclerosis. Her symptoms improved during her stay in the ED. Dr. Hoyt, neurologist, was consulted. The patient was also noted to have anemia with a hemoglobin of 8.5 on admission for which Dr. Renan Vizcaino was called. Given the concern for CVA, the patient was admitted on telemetry for further monitoring and workup.Patient still with left side weakness and unsteady gait. MRI showed no acute CVA. PT consulted and recommended more physical therapy due to unsteady gait. 1.Left sided weakness- likely multifactorial etiology, no acute CVA found on CT or MRI. Still complains of left arm weakness and unsteady gait CTA neck showed severe narrowing of the right posterior cerebral artery. possibly patient's symptoms are multifactorial : related to peripheral neuropathy with radiculopathy vitamin B12 , TSH, vitamin D - normal Consultation with Dr. Hoyt appreciated Continue PT while in house for gait training. patient referred to TCU Continue Plavix/ statin d/c and and start Aggrenox as per Neuro BP control improved, continue to monitor. 2.Acute on chronic anemia Consultation with Dr. Vizcaino, heme/onc appreciated patient had recent bone marrow that showed only iron deficiency Iron levels 30 , iron saturation 75 will give Venofer 200 mg IV daily for [address] Vizcaino Hgb 7.9->8.2 today repeat in AM 3.Chronic bronchial asthma Consultation with Dr. Dumont Patient saturating well, hemodynamically stable continue Claritin 10 mg po HS Continue Singulair 10 mg po HS 4.DM type [address] Subramanian apprexciated Lispro sliding scale Levemir SC BID and Humalog Accuchecks AC+HS 5.CAD with stents Continue ASA, Plavix, statin 6.Hypothyroidism Continue Synthroid 7. Morbid obesity BMI 54 8. Pancytopenia Hematology following Recent bone marrow bx showed only iron deficiency 9. DVT prophylaxis d/c heparin due to anemia on Plavix and aggrenox 10.GERD prophylaxis Pepcid 20 mg po BID
--- NOTE | 2017-02-21 01:41 | PN ---
DATE: SUBJECTIVE: This is a 47-year-old female with recent uncontrolled type 1 insulin-dependent diabetes, now being followed closely for metabolic management. She presented here with a transient ischemic event and undergoing neurological workup at this time. Her glycemic levels are fluctuating but improved, and the latest glucose levels have ranged from 158-170 mg/dL. It was 334 at dinnertime today as noted. The latest chemistry showed a BUN of 16, sodium 142, potassium 3.6, chloride 104, CO2 of 30, glucose 102, and creatinine 1.1. So at this time, we will continue the same basal and bolus insulin regimen to allow for dose equilibration and keep her on the Humalog given as 14 units subcutaneous t.i.d. before meals as ordered. We will continue the Levemir given as 20 units subcutaneous at 10:00 a.m. daily and 30 units at bedtime daily as ordered. We will titrate incrementally as indicated to optimize metabolic control. We will follow and advise accordingly. Lupe Subramanian MD
[2017-02-21] MEDS: Insulin Lispro (humaLOG) 100 Units/ml Inj SC SCH ×7 (06:38→21:51)
[2017-02-21] MEDS: Levothyroxine 200 MCG TAB PO SCH (06:44)
[2017-02-21] MEDS: Aspirin-Dipyridamole 200-25 mg ER Cap PO SCH ×2 (09:30→16:48)
[2017-02-21] MEDS: Potassium Chloride 20 mEq ER Tab PO SCH ×2 (09:35→16:58)
[2017-02-21] MEDS: Patient's Own Med (Vilazodone Hcl [Viibryd] 20 mg) PO SCH (09:36)
[2017-02-21] MEDS: Insulin Detemir 100 Units/ml Inj SC SCH ×2 (09:38→21:51)
--- NOTE | 2017-02-21 10:55 | CP.PCM.PN ---
Subjective - Date & Time of Evaluation Date of Evaluation: 02/21/17 Time of Evaluation: 10:15 - Subjective Subjective: The patient was seen and examined at bedside. Overnight she reported a tension headache along with some elevated blood pressure this morning for which she was given some Clonidine with improvement. She stated that last night she had some back discomfort. She notes that the weakness in her leg is improving, however she remains unable to ambulate on her own. She is cooperative with physical therapy. She denies chest pain, shortness of breath, nausea, vomiting, diarrhea. Objective - Vital Signs/Intake and Output Vital Signs (last 24 hours): Temp Pulse Resp BP Pulse Ox 97.9 F 78 18 186/55 H 99 02/21/17 08:00 02/21/17 09:34 02/21/17 08:00 02/21/17 09:34 02/21/17 08:00 - Medications Medications: Current Medications Acetaminophen (Tylenol 325mg Tab) 650 mg PO Q6 PRN PRN Reason: Pain, Mild (1-3) Last Admin: 02/20/17 16:02 Dose: 650 mg Albuterol (Ventolin Hfa 90 Mcg/Actuation (8 G)) 2 puff IH Q6H PRN PRN Reason: Shortness of Breath Allopurinol (Zyloprim) 300 mg PO DAILY [facility] Last Admin: 02/21/17 09:42 Dose: 300 mg Alprazolam (Xanax) 0.25 mg PO HS PRN PRN Reason: Anxiety Stop: 02/24/17 12:39 Last Admin: 02/18/17 18:40 Dose: 0.25 mg Atorvastatin Calcium (Lipitor) 20 mg PO HS BIGG Last Admin: 02/20/17 21:14 Dose: 20 mg Clonidine HCl (Catapres) 0.2 mg PO BID [facility] Last Admin: 02/21/17 09:31 Dose: 0.2 mg Clopidogrel Bisulfate (Plavix) 75 mg PO DAILY [facility] Last Admin: 02/21/17 09:35 Dose: 75 mg Diphenhydramine HCl (Benadryl) 25 mg PO HS PRN PRN Reason: Sleep Last Admin: 02/21/17 00:26 Dose: 25 mg Dipyridamole/Aspirin (Aggrenox 25-200 Mg) 1 ea PO BID [facility] Last Admin: 02/21/17 09:30 Dose: 1 ea Ergocalciferol (Drisdol 50,000 Intl Units Cap) 1 cap PO FR [facility] Last Admin: 02/19/17 14:48 Dose: 1 cap Famotidine (Pepcid) 20 mg PO BID [facility] Last Admin: 02/21/17 09:30 Dose: 20 mg Fluticasone Propionate (Flonase) 1 spr GOPI DAILY PRN PRN Reason: Allergy symptoms Furosemide (Lasix) 40 mg PO BID [facility] Last Admin: 02/21/17 09:34 Dose: 40 mg Home Med (Ranolazine [Ranexa]) 500 mg PO BID [facility] Last Admin: 02/21/17 09:37 Dose: 500 mg Home Med (Vilazodone Hcl [Viibryd]) 20 mg PO DAILY [facility] Last Admin: 02/21/17 09:36 Dose: 20 mg Hydrocortisone (Cortizone 1% Cream) 1 applic TOP BID [facility] Last Admin: 02/21/17 09:39 Dose: 1 applic Iron Sucrose 200 mg/ Sodium (Chloride) 110 mls @ 220 mls/hr IVPB DAILY [facility] PRN Reason: As Directed Stop: 02/23/17 09:29 Last Admin: 02/21/17 09:36 Dose: 220 mls/hr Insulin Detemir (Levemir) 20 units SC DAILY [facility] Last Admin: 02/21/17 09:38 Dose: 20 units Insulin Detemir (Levemir) 30 units SC HS [facility] Last Admin: 02/20/17 21:57 Dose: 30 units Insulin Human Lispro (Humalog) 0 units SC ACHS [facility] PRN Reason: Protocol Last Admin: 02/21/17 06:38 Dose: Not Given Insulin Human Lispro (Humalog) 14 units SC AC [facility] Last Admin: 02/21/17 09:41 Dose: 14 units Levothyroxine Sodium (Synthroid) 200 mcg PO ACB [facility] Last Admin: 02/21/17 06:44 Dose: 200 mcg Lisinopril (Zestril) 10 mg PO DAILY [facility] Last Admin: 02/21/17 09:34 Dose: 10 mg Loratadine (Claritin) 10 mg PO HS [facility] Last Admin: 02/20/17 21:15 Dose: 10 mg Metformin HCl (Glucophage) 500 mg PO BID [facility] Last Admin: 02/21/17 09:34 Dose: 500 mg Montelukast Sodium (Singulair) 10 mg PO HS [facility] Last Admin: 02/20/17 21:14 Dose: 10 mg Nystatin (Nystop Topical Powder) 1 applic TOP TID [facility] Last Admin: 02/21/17 09:37 Dose: 1 applic Potassium Chloride (K-Dur 20 Meq Er Tab) 40 meq PO BID [facility] Last Admin: 02/21/17 09:35 Dose: 40 meq - Labs Labs: 02/20/17 06:30 02/20/17 07:30 PT 14.0 Seconds (9.8-13.1) H 02/17/17 09:28 INR 1.2 (0.9-1.2) 02/17/17 09:28 APTT 39.1 Seconds (25.6-37.1) H 02/17/17 09:28 - Additional Findings Additional findings: Physical exam: Constitutional- cooperative, awake, alert, morbidly obese female in no apparent distress. Head- NCAT, PERRL Eye- PERRL, normal accommodation in left eye, patch over right eye. ENT- normal exam, MMM. Neck- normal inspection, supple, no JVD Respiratory- CTAB, no wheezes rales rhonchi Cardiovascular- RRR, +S1, +S2 no MRG GI/Abdominal- normal bowel sounds, soft, no mass, no hsm Skin- warm, dry, fungal rash to lower abdomen for which she is getting Nystatin powder Extremities Exam- normal capillary refill, normal inspection Neurological Exam: CN II-XII Intact, Oriented x3 Neuro motor strength exam: Left Upper Extremity: 4, Right Upper Extremity: 5, Left Lower Extremity: 4, Right Lower Extremity: 5 Psych- normal mood, normal affect Assessment and Plan - Assessment and Plan (Free Text) Plan: Assessment: 47-year-old female with a long-standing history of bronchial asthma, also with history of CVA, morbid obesity, sinusitis, and suspected obesity/ hypoventilation syndrome,diabetes mellitus type II, cardiomyopathy, coronary artery disease with 4 stents, history of pulmonary embolism,history of right eye malignant tumor in 1976, presented with a complaint of sudden onset left upper and left lower any weakness when she woke up. She noted that when trying to walk to the bathroom and felt like she was "out of control of her left leg" . After a concern that she might fall secondary to weakness, she came to the emergency department. Here in the ED, code stroke was called given her symptoms. CT scan without contrast was performed showed no significant interval change from previous head CT on 02/10/2016. The head and neck CT was also performed revealing asymmetric severe narrowing of the right posterior cerebral artery which may be related to severe underlying atherosclerosis. Her symptoms improved during her stay in the ED. Dr. Hoyt, neurologist, was consulted. The patient was also noted to have anemia with a hemoglobin of 8.5 on admission for which Dr. Renan Vizcaino was called. Given the concern for CVA, the patient was admitted on telemetry for further monitoring and workup.Patient still with left side weakness and unsteady gait. MRI showed no acute CVA. PT consulted and recommended more physical therapy due to unsteady gait. 1.Left sided weakness- likely multifactorial etiology, no acute CVA found on CT or MRI. Still complains of left arm weakness and unsteady gait CTA neck showed severe narrowing of the right posterior cerebral artery. possibly patient's symptoms are multifactorial : related to peripheral neuropathy with radiculopathy vitamin B12 , TSH, vitamin D - normal Consultation with Dr. Hoyt appreciated Continue PT while in house for gait training. Likely discharge tomorrow to TCU. Continue Plavix/ statin d/c and and start Aggrenox as per Neuro BP control improved, continue to monitor. 2.Acute on chronic anemia Consultation with Dr. Vizcaino, heme/onc appreciated patient had recent bone marrow that showed only iron deficiency Iron levels 30 , iron saturation 75 will give Venofer 200 mg IV daily for 4 days total as per Dr. Vizcaino Hgb 7.9->8.2 today repeat in AM 3.Chronic bronchial asthma Consultation with Dr. Dumont Patient saturating well, hemodynamically stable continue Claritin 10 mg po HS Continue Singulair 10 mg po HS 4.DM type [address] Subramanian apprexciated Lispro sliding scale Levemir SC BID and Humalog Accuchecks AC+HS 5.CAD with stents Continue ASA, Plavix, statin 6.Hypothyroidism Continue Synthroid 7. Morbid obesity BMI 54 8. Pancytopenia Hematology following Recent bone marrow bx showed only iron deficiency 9. DVT prophylaxis d/c heparin due to anemia on Plavix and aggrenox 10.GERD prophylaxis Pepcid 20 mg po BID
--- NOTE | 2017-02-21 16:57 | PN ---
DATE: ENDOCRINOLOGY FOLLOWUP NOTE LOCATION: Room 418. SUBJECTIVE: This is a 47-year-old female with recent uncontrolled type 1 insulin-dependent diabetes, now being followed closely for metabolic management. Her glycemic levels are fluctuating but improved and today's glucose levels have ranged from 187-209 mg/dL. Her latest chemistry showed a BUN of 16, sodium 142, potassium 3.6, chloride 104, CO2 of 38, glucose 102, and creatinine 1.1. So, at this time, we will continue the same basal insulin as given with Levemir given as 20 units subcu at 10:00 a.m. and Levemir given as 30 units subcu at 10:00 p.m. daily as ordered. We will continue the Humalog given as 14 units subcu as ordered. We will titrate incremental as indicated to optimize metabolic control. We will follow. Lupe Subramanian MD
[2017-02-22] MEDS ORDERED: Alum-Mag Hydrox-Simethicone Susp (30 mL) PO ONE (01:31)
[2017-02-22 06:09] LABS: HEMATOCRIT 26.5 % (34.0-47.0); MEAN CELL VOLUME 82.6 fl (81.0-99.0); MEAN CORPUSCULAR HEMOGLOBIN 26.4 pg (27.0-31.0); RED CELL DISTRIBUTION WIDTH 17.4 % (11.5-14.5); WHITE BLOOD COUNT 3.4 K/uL (4.8-10.8)
[2017-02-22 06:23] LABS: CALCIUM 8.8 mg/dL (8.4-10.2); POTASSIUM 3.9 MMOL/L (3.6-5.0)
[2017-02-22] MEDS: Insulin Lispro (humaLOG) 100 Units/ml Inj SC SCH ×7 (06:35→22:02)
[2017-02-22] MEDS: Levothyroxine 200 MCG TAB PO SCH (08:22)
[2017-02-22] MEDS: Patient's Own Med (Vilazodone Hcl [Viibryd] 20 mg) PO SCH (08:24)
[2017-02-22] MEDS: Potassium Chloride 20 mEq ER Tab PO SCH ×2 (08:24→18:02)
[2017-02-22] MEDS: Aspirin-Dipyridamole 200-25 mg ER Cap PO SCH (08:25)
[2017-02-22] MEDS: Insulin Detemir 100 Units/ml Inj SC SCH ×2 (08:28→22:03)
--- NOTE | 2017-02-22 11:11 | CP.PCM.PN ---
Subjective - Date & Time of Evaluation Date of Evaluation: 02/22/17 Time of Evaluation: 11:10 - Subjective Subjective: Patient rene had severe headache with addition of Aggrenox to her regimen. Will try using just an HS dose to see if it will be better tolerated, and increase to BID later if it is. Hypertensive readings noted on BP. Some transient unsteadiness upon coming to a standing position. Offers no complaints of cough or SOB. Able to participate in physical therapy. Gradual decrease in dependant edema. Objective - Vital Signs/Intake and Output Vital Signs (last 24 hours): Temp Pulse Resp BP Pulse Ox 97.6 F 77 18 168/81 H 100 02/22/17 08:16 02/22/17 08:26 02/22/17 08:16 02/22/17 08:26 02/22/17 08:16 - Medications Medications: Current Medications Acetaminophen (Tylenol 325mg Tab) 650 mg PO Q6 PRN PRN Reason: Pain, Mild (1-3) Last Admin: 02/20/17 16:02 Dose: 650 mg Acetaminophen (Tylenol 325mg Tab) 650 mg PO Q6 PRN PRN Reason: Pain, moderate (4-7) Last Admin: 02/21/17 21:45 Dose: 650 mg Albuterol (Ventolin Hfa 90 Mcg/Actuation (8 G)) 2 puff IH Q6H PRN PRN Reason: Shortness of Breath Allopurinol (Zyloprim) 300 mg PO DAILY [facility] Last Admin: 02/22/17 08:28 Dose: 300 mg Alprazolam (Xanax) 0.25 mg PO HS PRN PRN Reason: Anxiety Stop: 02/24/17 12:39 Last Admin: 02/18/17 18:40 Dose: 0.25 mg Aspirin (Aspirin Chewable) 81 mg PO DAILY [facility] Atorvastatin Calcium (Lipitor) 20 mg PO HS [facility] Last Admin: 02/21/17 21:45 Dose: 20 mg Clonidine HCl (Catapres) 0.2 mg PO BID [facility] Last Admin: 02/22/17 08:23 Dose: 0.2 mg Clopidogrel Bisulfate (Plavix) 75 mg PO DAILY [facility] Last Admin: 02/22/17 08:28 Dose: 75 mg Diphenhydramine HCl (Benadryl) 25 mg PO HS PRN PRN Reason: Sleep Last Admin: 02/21/17 23:31 Dose: 25 mg Ergocalciferol (Drisdol 50,000 Intl Units Cap) 1 cap PO FR [facility] Last Admin: 02/19/17 14:48 Dose: 1 cap Famotidine (Pepcid) 20 mg PO BID [facility] Last Admin: 02/22/17 08:24 Dose: 20 mg Fluticasone Propionate (Flonase) 1 spr GOPI DAILY PRN PRN Reason: Allergy symptoms Furosemide (Lasix) 40 mg PO BID [facility] Last Admin: 02/22/17 08:23 Dose: 40 mg Home Med (Ranolazine [Ranexa]) 500 mg PO BID [facility] Last Admin: 02/22/17 08:25 Dose: 500 mg Home Med (Vilazodone Hcl [Viibryd]) 20 mg PO DAILY [facility] Last Admin: 02/22/17 08:24 Dose: 20 mg Hydrocortisone (Cortizone 1% Cream) 1 applic TOP BID [facility] Last Admin: 02/22/17 08:27 Dose: 1 applic Iron Sucrose 200 mg/ Sodium (Chloride) 110 mls @ 220 mls/hr IVPB DAILY [facility] PRN Reason: As Directed Stop: 02/23/17 09:29 Last Admin: 02/21/17 09:36 Dose: 220 mls/hr Insulin Detemir (Levemir) 20 units SC DAILY [facility] Last Admin: 02/22/17 08:28 Dose: 20 units Insulin Detemir (Levemir) 30 units SC HS [facility] Last Admin: 02/21/17 21:51 Dose: Not Given Insulin Human Lispro (Humalog) 0 units SC ACHS [facility] PRN Reason: Protocol Last Admin: 02/22/17 06:35 Dose: Not Given Insulin Human Lispro (Humalog) 14 units SC AC [facility] Last Admin: 02/22/17 08:27 Dose: 14 units Levothyroxine Sodium (Synthroid) 200 mcg PO ACB [facility] Last Admin: 02/22/17 08:22 Dose: 200 mcg Lisinopril (Zestril) 10 mg PO DAILY [facility] Last Admin: 02/22/17 08:26 Dose: 10 mg Loratadine (Claritin) 10 mg PO HS [facility] Last Admin: 02/21/17 21:45 Dose: 10 mg Metformin HCl (Glucophage) 500 mg PO BID [facility] Last Admin: 02/22/17 08:24 Dose: 500 mg Montelukast Sodium (Singulair) 10 mg PO HS [facility] Last Admin: 02/21/17 21:45 Dose: 10 mg Nystatin (Nystop Topical Powder) 1 applic TOP TID [facility] Last Admin: 02/22/17 08:25 Dose: 1 applic Potassium Chloride (K-Dur 20 Meq Er Tab) 40 meq PO BID [facility] Last Admin: 02/22/17 08:24 Dose: 40 meq - Labs Labs: 02/22/17 05:55 02/22/17 05:55 PT 14.0 Seconds (9.8-13.1) H 02/17/17 09:28 INR 1.2 (0.9-1.2) 02/17/17 09:28 APTT 39.1 Seconds (25.6-37.1) H 02/17/17 09:28 Assessment and Plan (1) TIA (transient ischemic attack) Status: Acute (2) Asthma Status: Chronic (3) Morbid obesity Status: Chronic (4) Anemia Status: Chronic (5) Obstructive sleep apnea (adult) (pediatric) Status: Chronic (6) Obesity hypoventilation syndrome Status: Chronic
--- NOTE | 2017-02-22 11:39 | CP.PCM.PN ---
Subjective - Date & Time of Evaluation Date of Evaluation: 02/22/17 Time of Evaluation: 11:34 - Subjective Subjective: Pt's hgb is slowly going up. . Today her hgb is 8.5gms. Today is the last day of venofer. Cannot give more venofer until 2 weeks are over. She will e going to TCU for physical therapy. Objective - Vital Signs/Intake and Output Vital Signs (last 24 hours): Temp Pulse Resp BP Pulse Ox 97.6 F 77 18 168/81 H 100 02/22/17 08:16 02/22/17 08:26 02/22/17 08:16 02/22/17 08:26 02/22/17 08:16 - Medications Medications: Current Medications Acetaminophen (Tylenol 325mg Tab) 650 mg PO Q6 PRN PRN Reason: Pain, Mild (1-3) Last Admin: 02/20/17 16:02 Dose: 650 mg Acetaminophen (Tylenol 325mg Tab) 650 mg PO Q6 PRN PRN Reason: Pain, moderate (4-7) Last Admin: 02/21/17 21:45 Dose: 650 mg Albuterol (Ventolin Hfa 90 Mcg/Actuation (8 G)) 2 puff IH Q6H PRN PRN Reason: Shortness of Breath Allopurinol (Zyloprim) 300 mg PO DAILY [facility] Last Admin: 02/22/17 08:28 Dose: 300 mg Alprazolam (Xanax) 0.25 mg PO HS PRN PRN Reason: Anxiety Stop: 02/24/17 12:39 Last Admin: 02/18/17 18:40 Dose: 0.25 mg Aspirin (Aspirin Chewable) 81 mg PO DAILY [facility] Atorvastatin Calcium (Lipitor) 20 mg PO HS [facility] Last Admin: 02/21/17 21:45 Dose: 20 mg Clonidine HCl (Catapres) 0.2 mg PO BID [facility] Last Admin: 02/22/17 08:23 Dose: 0.2 mg Clopidogrel Bisulfate (Plavix) 75 mg PO DAILY [facility] Last Admin: 02/22/17 08:28 Dose: 75 mg Diphenhydramine HCl (Benadryl) 25 mg PO HS PRN PRN Reason: Sleep Last Admin: 02/21/17 23:31 Dose: 25 mg Dipyridamole/Aspirin (Aggrenox 25-200 Mg) 1 ea PO HS [facility] Ergocalciferol (Drisdol 50,000 Intl Units Cap) 1 cap PO FR [facility] Last Admin: 02/19/17 14:48 Dose: 1 cap Famotidine (Pepcid) 20 mg PO BID [facility] Last Admin: 02/22/17 08:24 Dose: 20 mg Fluticasone Propionate (Flonase) 1 spr GOPI DAILY PRN PRN Reason: Allergy symptoms Furosemide (Lasix) 40 mg PO BID [facility] Last Admin: 02/22/17 08:23 Dose: 40 mg Home Med (Ranolazine [Ranexa]) 500 mg PO BID [facility] Last Admin: 02/22/17 08:25 Dose: 500 mg Home Med (Vilazodone Hcl [Viibryd]) 20 mg PO DAILY [facility] Last Admin: 02/22/17 08:24 Dose: 20 mg Hydrocortisone (Cortizone 1% Cream) 1 applic TOP BID [facility] Last Admin: 02/22/17 08:27 Dose: 1 applic Iron Sucrose 200 mg/ Sodium (Chloride) 110 mls @ 220 mls/hr IVPB DAILY [facility] PRN Reason: As Directed Stop: 02/23/17 09:29 Last Admin: 02/21/17 09:36 Dose: 220 mls/hr Insulin Detemir (Levemir) 20 units SC DAILY [facility] Last Admin: 02/22/17 08:28 Dose: 20 units Insulin Detemir (Levemir) 30 units SC HS [facility] Last Admin: 02/21/17 21:51 Dose: Not Given Insulin Human Lispro (Humalog) 0 units SC ACHS [facility] PRN Reason: Protocol Last Admin: 02/22/17 06:35 Dose: Not Given Insulin Human Lispro (Humalog) 14 units SC AC [facility] Last Admin: 02/22/17 08:27 Dose: 14 units Levothyroxine Sodium (Synthroid) 200 mcg PO ACB [facility] Last Admin: 02/22/17 08:22 Dose: 200 mcg Lisinopril (Zestril) 10 mg PO DAILY [facility] Last Admin: 02/22/17 08:26 Dose: 10 mg Loratadine (Claritin) 10 mg PO HS [facility] Last Admin: 02/21/17 21:45 Dose: 10 mg Metformin HCl (Glucophage) 500 mg PO BID [facility] Last Admin: 02/22/17 08:24 Dose: 500 mg Montelukast Sodium (Singulair) 10 mg PO HS [facility] Last Admin: 02/21/17 21:45 Dose: 10 mg Nystatin (Nystop Topical Powder) 1 applic TOP TID [facility] Last Admin: 02/22/17 08:25 Dose: 1 applic Potassium Chloride (K-Dur 20 Meq Er Tab) 40 meq PO BID [facility] Last Admin: 02/22/17 08:24 Dose: 40 meq - Labs Labs: 02/22/17 05:55 02/22/17 05:55 PT 14.0 Seconds (9.8-13.1) H 02/17/17 09:28 INR 1.2 (0.9-1.2) 02/17/17 09:28 APTT 39.1 Seconds (25.6-37.1) H 02/17/17 09:28
[2017-02-22] MEDS ORDERED: Metoprolol Succinate 100 mg XL Tab PO STA (16:15)
--- NOTE | 2017-02-22 16:36 | CP.PCM.DIS ---
Provider - Provider Date of Admission: 02/19/17 05:22 Attending physician: J Luis Abraham [facility] Course - Lab Results Lab Results: Most Recent Lab Values WBC 3.4 K/uL (4.8-10.8) L 02/22/17 05:55 RBC 3.21 Mil/uL (3.80-5.20) L 02/22/17 05:55 Hgb 8.5 g/dL (12.0-16.0) L 02/22/17 05:55 Hct 26.5 % (34.0-47.0) L 02/22/17 05:55 MCV 82.6 fl (81.0-99.0) 02/22/17 05:55 MCH 26.4 pg (27.0-31.0) L 02/22/17 05:55 MCHC 32.0 g/dL (33.0-37.0) L 02/22/17 05:55 RDW 17.4 % (11.5-14.5) H 02/22/17 05:55 Plt Count 130 K/uL (130-400) 02/22/17 05:55 MPV 7.9 fl (7.2-11.7) 02/17/17 09:28 Neut % (Auto) 62.2 % (50.0-75.0) 02/17/17 09:28 Lymph % (Auto) 27.8 % (20.0-40.0) 02/17/17 09:28 Barry % (Auto) 6.7 % (0.0-10.0) 02/17/17 09:28 Eos % (Auto) 3.0 % (0.0-4.0) 02/17/17 09:28 Baso % (Auto) 0.3 % (0.0-2.0) 02/17/17 09:28 Neut # 2.1 K/uL (1.8-7.0) 02/17/17 09:28 Lymph # 0.9 K/uL (1.0-4.3) L 02/17/17 09:28 Barry # 0.2 K/uL (0.0-0.8) 02/17/17 09:28 Eos # 0.1 K/uL (0.0-0.7) 02/17/17 09:28 Baso # 0.0 K/uL (0.0-0.2) 02/17/17 09:28 Retic Count 3.4 % (0.5-1.5) H D 02/18/17 04:10 PT 14.0 Seconds (9.8-13.1) H 02/17/17 09:28 INR 1.2 (0.9-1.2) 02/17/17 09:28 APTT 39.1 Seconds (25.6-37.1) H 02/17/17 09:28 Sodium 143 mmol/l (132-148) 02/22/17 05:55 Potassium 3.9 MMOL/L (3.6-5.0) 02/22/17 05:55 Chloride 106 mmol/L (98-107) 02/22/17 05:55 Carbon Dioxide 28 mmol/L (22-30) 02/22/17 05:55 Anion Gap 13 (10-20) 02/22/17 05:55 BUN 18 mg/dl (7-17) H 02/22/17 05:55 Creatinine 1.2 mg/dL (0.7-1.2) 02/22/17 05:55 Est GFR ( Amer) 59 02/22/17 05:55 Est GFR (Non-Af Amer) 48 02/22/17 05:55 POC Glucose (mg/dL) 274 mg/dL (65-110) H 02/22/17 16:08 Random Glucose 121 mg/dL (65-105) H 02/22/17 05:55 Hemoglobin A1c 7.0 % (4.2-6.5) H 02/17/17 09:28 Calcium 8.8 mg/dL (8.4-10.2) 02/22/17 05:55 Iron 30 ug/dL (37-170) L 02/18/17 04:10 TIBC 415 ug/dL (250-450) 02/18/17 04:10 % Saturation 7 % (20-55) L 02/18/17 04:10 Ferritin 14.0 ng/Ml (6.24-137.0) 02/18/17 04:10 Total Bilirubin 0.3 mg/dl (0.2-1.3) 02/18/17 04:10 AST 56 U/L (14-36) H 02/18/17 04:10 ALT 37 U/L (9-52) 02/18/17 04:10 Alkaline Phosphatase 69 U/L (38-126) 02/18/17 04:10 Troponin I < 0.0120 ng/mL (0.00-0.120) 02/17/17 09:28 NT-Pro-B Natriuret Pep 187 pg/ml (0-450) 02/17/17 09:28 Total Protein 7.0 G/DL (6.3-8.2) 02/18/17 04:10 Albumin 3.6 g/dL (3.5-5.0) 02/18/17 04:10 Globulin 3.4 gm/dL (2.2-3.9) 02/18/17 04:10 Albumin/Globulin Ratio 1.0 (1.0-2.1) 02/18/17 04:10 Triglycerides 163 mg/DL (0-149) H 02/17/17 09:28 Cholesterol 140 mg/dL (0-199) 02/17/17 09:28 LDL Cholesterol Direct 67 mg/dL (0-129) 02/17/17 09:28 HDL Cholesterol 33 MG/DL (30-70) 02/17/17 09:28 Vitamin B12 805 pg/mL (239-931) 02/18/17 04:10 25-OH Vitamin D Total 24.9 NG/ML (30.0-100.0) L 02/18/17 15:26 Thyroxine (T4) 6.50 ug/dl (5.5-11.0) 02/18/17 04:10 TSH 3rd Generation 4.33 mIU/ML (0.46-4.68) 02/18/17 04:10 Cortisol AM Sample 3.2 ug/dL (4.46-22.7) L 02/18/17 04:10 Blood Type A POSITIVE 02/17/17:28 Antibody Screen Negative 02/17/17: BBK History Checked Patient has bt 02/17/17 09:28 - Hospital Course Hospital Course: 47-year-old female with a long-standing history of bronchial asthma, also with history of CVA, morbid obesity, sinusitis, and suspected obesity/ hypoventilation syndrome,diabetes mellitus type II, cardiomyopathy, coronary artery disease with 4 stents, history of pulmonary embolism,history of right eye malignant tumor in 1976, presented with a complaint of sudden onset left upper and left lower any weakness when she woke up. She noted that when trying to walk to the bathroom and felt like she was "out of control of her left leg" . After a concern that she might fall secondary to weakness, she came to the emergency department. Here in the ED, code stroke was called given her symptoms. CT scan without contrast was performed showed no significant interval change from previous head CT on 02/10/2016. The head and neck CT was also performed revealing asymmetric severe narrowing of the right posterior cerebral artery which may be related to severe underlying atherosclerosis. Her symptoms improved during her stay in the ED. Dr. Hoyt, neurologist, was consulted. The patient was also noted to have anemia with a hemoglobin of 8.5 on admission for which Dr. Renan Vizcaino was called. Given the concern for CVA, the patient was admitted on telemetry for further monitoring and workup.Patient still with left side weakness and unsteady gait. MRI showed no acute CVA. PT consulted and recommended more physical therapy due to unsteady gait. 1.Left sided weakness- likely multifactorial etiology, no acute CVA found on CT or MRI. Still complains of left arm weakness and unsteady gait CTA neck showed severe narrowing of the right posterior cerebral artery. possibly patient's symptoms are multifactorial : related to peripheral neuropathy with radiculopathy vitamin B12 , TSH, vitamin D - normal Consultation with Dr. Hoyt appreciated Continue PT while in house for gait training. Likely discharge tomorrow to TCU. Continue Plavix/ statin d/c and and start Aggrenox as per Neuro BP control improved, continue to monitor. 2.Acute on chronic anemia Consultation with Dr. Vizcaino, heme/onc appreciated patient had recent bone marrow that showed only iron deficiency Iron levels 30 , iron saturation 75 will give Venofer 200 mg IV daily for 4 days total as per Dr. Vizcaino Hgb 7.9->8.2 today repeat in AM 3.Chronic bronchial asthma Consultation with Dr. Dumont Patient saturating well, hemodynamically stable continue Claritin 10 mg po HS Continue Singulair 10 mg po HS 4.DM type [address] Surbamanian apprexciated Lispro sliding scale Levemir SC BID and Humalog Accuchecks AC+HS 5.CAD with stents Continue ASA, Plavix, statin 6.Hypothyroidism Continue Synthroid 7. Morbid obesity BMI 54 8. Pancytopenia Hematology following Recent bone marrow bx showed only iron deficiency 9. DVT prophylaxis d/c heparin due to anemia on Plavix and aggrenox 10.GERD prophylaxis Pepcid 20 mg po BID Discharge Exam - Head Exam Head Exam: NORMOCEPHALIC Discharge Plan - Discharge Medications Prescriptions: Aspirin/Dipyridamole [Aggrenox 25-200 mg] 1 ea PO HS #30 cap Lisinopril [Zestril] 10 mg PO DAILY #30 tab - Follow Up Plan Condition: STABLE Disposition: HOME/ ROUTINE Instructions: Transient Ischemic Attack (DC) Additional Instructions: Resume Toprol XL 100mg daily. Take Lisinopril 5mg daily.
--- NOTE | 2017-02-22 19:21 | CP.PCM.PN ---
Subjective - Date & Time of Evaluation Date of Evaluation: 02/22/17 Time of Evaluation: 11:00 - Subjective Subjective: Patient was seen and evaluated bedside. Still complaining of feeling unsteady on her feet and afraid to go home because she might fall.Much improved . Denies any SWANSON. With episode of uncontrolled BP overnight and today during the day BP 197/93. Denies any CP SOB, palpitations Objective - Vital Signs/Intake and Output Vital Signs (last 24 hours): Temp Pulse Resp BP Pulse Ox 98 F 86 20 177/84 H 99 02/22/17 16:20 02/22/17 18:06 02/22/17 16:20 02/22/17 18:06 02/22/17 16:20 - Medications Medications: Current Medications Acetaminophen (Tylenol 325mg Tab) 650 mg PO Q6 PRN PRN Reason: Pain, Mild (1-3) Last Admin: 02/20/17 16:02 Dose: 650 mg Acetaminophen (Tylenol 325mg Tab) 650 mg PO Q6 PRN PRN Reason: Pain, moderate (4-7) Last Admin: 02/21/17 21:45 Dose: 650 mg Albuterol (Ventolin Hfa 90 Mcg/Actuation (8 G)) 2 puff IH Q6H PRN PRN Reason: Shortness of Breath Allopurinol (Zyloprim) 300 mg PO DAILY [facility] Last Admin: 02/22/17 08:28 Dose: 300 mg Alprazolam (Xanax) 0.25 mg PO HS PRN PRN Reason: Anxiety Stop: 02/24/17 12:39 Last Admin: 02/18/17 18:40 Dose: 0.25 mg Aspirin (Aspirin Chewable) 81 mg PO DAILY [facility] Last Admin: 02/22/17 09:59 Dose: 81 mg Atorvastatin Calcium (Lipitor) 20 mg PO HS [facility] Last Admin: 02/21/17 21:45 Dose: 20 mg Clonidine HCl (Catapres) 0.2 mg PO BID [facility] Last Admin: 02/22/17 18:06 Dose: 0.2 mg Clopidogrel Bisulfate (Plavix) 75 mg PO DAILY [facility] Last Admin: 02/22/17 08:28 Dose: 75 mg Diphenhydramine HCl (Benadryl) 25 mg PO HS PRN PRN Reason: Sleep Last Admin: 02/21/17 23:31 Dose: 25 mg Dipyridamole/Aspirin (Aggrenox 25-200 Mg) 1 ea PO HS BIGG Ergocalciferol (Drisdol 50,000 Intl Units Cap) 1 cap PO FR [facility] Last Admin: 02/19/17 14:48 Dose: 1 cap Famotidine (Pepcid) 20 mg PO BID [facility] Last Admin: 02/22/17 18:02 Dose: 20 mg Fluticasone Propionate (Flonase) 1 spr GOPI DAILY PRN PRN Reason: Allergy symptoms Furosemide (Lasix) 40 mg PO BID [facility] Last Admin: 02/22/17 18:02 Dose: 40 mg Home Med (Ranolazine [Ranexa]) 500 mg PO BID [facility] Last Admin: 02/22/17 18:01 Dose: 500 mg Home Med (Vilazodone Hcl [Viibryd]) 20 mg PO DAILY [facility] Last Admin: 02/22/17 08:24 Dose: 20 mg Hydrocortisone (Cortizone 1% Cream) 1 applic TOP BID [facility] Last Admin: 02/22/17 18:06 Dose: 1 applic Iron Sucrose 200 mg/ Sodium (Chloride) 110 mls @ 220 mls/hr IVPB DAILY [facility] PRN Reason: As Directed Stop: 02/23/17 09:29 Last Admin: 02/22/17 12:57 Dose: 220 mls/hr Insulin Detemir (Levemir) 20 units SC DAILY [facility] Last Admin: 02/22/17 08:28 Dose: 20 units Insulin Detemir (Levemir) 30 units SC HS [facility] Last Admin: 02/21/17 21:51 Dose: Not Given Insulin Human Lispro (Humalog) 0 units SC ACHS [facility] PRN Reason: Protocol Last Admin: 02/22/17 18:04 Dose: Not Given Insulin Human Lispro (Humalog) 14 units SC AC [facility] Last Admin: 02/22/17 18:03 Dose: 14 units Levothyroxine Sodium (Synthroid) 200 mcg PO ACB [facility] Last Admin: 02/22/17 08:22 Dose: 200 mcg Lisinopril (Zestril) 10 mg PO DAILY [facility] Last Admin: 02/22/17 08:26 Dose: 10 mg Loratadine (Claritin) 10 mg PO HS [facility] Last Admin: 02/21/17 21:45 Dose: 10 mg Metformin HCl (Glucophage) 500 mg PO BID [facility] Last Admin: 02/22/17 18:01 Dose: 500 mg Metoprolol Succinate (Toprol Xl) 100 mg PO DAILY [facility] Montelukast Sodium (Singulair) 10 mg PO HS [facility] Last Admin: 02/21/17 21:45 Dose: 10 mg Nystatin (Nystop Topical Powder) 1 applic TOP TID [facility] Last Admin: 02/22/17 18:01 Dose: 1 applic Potassium Chloride (K-Dur 20 Meq Er Tab) 40 meq PO BID [facility] Last Admin: 02/22/17 18:02 Dose: 40 meq - Labs Labs: 02/22/17 05:55 02/22/17 05:55 PT 14.0 Seconds (9.8-13.1) H 02/17/17 09:28 INR 1.2 (0.9-1.2) 02/17/17 09:28 APTT 39.1 Seconds (25.6-37.1) H 02/17/17 09:28 - Constitutional Appears: No Acute Distress, In Acute Distress, Other (obese ) - Head Exam Head Exam: NORMOCEPHALIC Additional comments: right eye patch - Eye Exam Pupil Exam: NORMAL ACCOMODATION - ENT Exam ENT Exam: Mucous Membranes Moist, Normal Exam - Neck Exam Neck Exam: Normal Inspection - Respiratory Exam Respiratory Exam: NORMAL BREATHING PATTERN. absent: Accessory Muscle Use, Prolonged Expiratory Phase, Respiratory Distress - Cardiovascular Exam Cardiovascular Exam: REGULAR RHYTHM, +S1, +S2. absent: JVD - GI/Abdominal Exam GI & Abdominal Exam: Soft, Normal Bowel Sounds. absent: Distended, Guarding, Rebound - Rectal Exam Rectal Exam: Deferred - Extremities Exam Extremities Exam: Full ROM, Normal Capillary Refill, Normal Inspection. absent : Pedal Edema - Back Exam Back Exam: NORMAL INSPECTION - Neurological Exam Neurological Exam: Alert, Awake, CN II-XII Intact, Oriented x3 - Psychiatric Exam Psychiatric exam: Anxious - Skin Skin Exam: Dry, Intact, Pallor, Warm Assessment and Plan - Assessment and Plan (Free Text) Assessment: 47-year-old female with a long-standing history of bronchial asthma, also with history of CVA, morbid obesity, sinusitis, and suspected obesity/ hypoventilation syndrome,diabetes mellitus type II, cardiomyopathy, coronary artery disease with 4 stents, history of pulmonary embolism,history of right eye malignant tumor in 1976, presented with a complaint of sudden onset left upper and left lower any weakness when she woke up. She noted that when trying to walk to the bathroom and felt like she was "out of control of her left leg" . After a concern that she might fall secondary to weakness, she came to the emergency department. Here in the ED, code stroke was called given her symptoms. CT scan without contrast was performed showed no significant interval change from previous head CT on 02/10/2016. The head and neck CT was also performed revealing asymmetric severe narrowing of the right posterior cerebral artery which may be related to severe underlying atherosclerosis. Her symptoms improved during her stay in the ED. Dr. Hoyt, neurologist, was consulted. The patient was also noted to have anemia with a hemoglobin of 8.5 on admission for which Dr. Renan Vizcaino was called. Given the concern for CVA, the patient was admitted on telemetry for further monitoring and workup.Patient still with left side weakness and unsteady gait. MRI showed no acute CVA. PT consulted and recommended more physical therapy due to unsteady gait. 1.Left sided weakness- likely multifactorial etiology, no acute CVA found on CT or MRI. Still complains of left arm weakness and unsteady gait CTA neck showed severe narrowing of the right posterior cerebral artery. possibly patient's symptoms are multifactorial : related to peripheral neuropathy with radiculopathy vitamin B12 , TSH, vitamin D - normal Consultation with Dr. Hoyt appreciated Continue PT while in house for gait training. Willd/c home with home PT or outpatient physical therapy Continue Plavix/ statin started aggrenox as per neuro ( d/c ASA ) Ag. Decresaed to once a day due to patient complaining of SWANSON Continue better BP control 2. Uncontrolled BP with BP readings 197/93 Resumed Toprol XL 100 mg PO daily that patient was taking as outpatient Continue clonidine 0.2 mg po BID continue lisinopril 10 mg po daily that is started this admission Continue monoitoring overnight 3.Acute on chronic anemia Consultation with Dr. Vizcaino, heme/onc appreciated patient had recent bone marrow that showed only iron deficiency Iron levels 30 , iron saturation 75 will give Venofer 200 mg IV daily for 4 days total as per Dr. Vizcaino. today was last dose Hgb 8.5 today Patient to follow up with Dr. Vizcaino for iron infusion as outpatient 4.Chronic bronchial asthma Consultation with Dr. Dumont Patient saturating well, hemodynamically stable continue Claritin 10 mg po HS Continue Singulair 10 mg po HS 5.DM type [address] Subramanian apprexciated Lispro sliding scale Levemir SC BID 20 units AM and 30 units HS Humalog 14 units SQ TID Accuchecks AC+HS 6.CAD with stents Continue ASA, Plavix, statin 7.Hypothyroidism Continue Synthroid 8. Morbid obesity BMI 54 9.Pancytopenia Hematology following Recent bone marrow bx showed only iron deficiency 10. DVT prophylaxis d/c heparin due to anemia on Plavix and aggrenox 11.GERD prophylaxis Pepcid 20 mg po BID
--- NOTE | 2017-02-22 21:49 | PN ---
ENDO FOLLOWUP NOTE LOCATION: Room #418, bed 2. SUBJECTIVE: This is a 47-year-old female with recent uncontrolled type 1 insulin-dependent diabetes, now being followed closely for metabolic management. Her glycemic levels are fluctuating but much improved at this time and the latest glucose levels have ranged from 153-274 mg/dL. Her latest chemistry showed a BUN of 18, sodium 143, potassium 3.9, chloride 106, CO2 of 28, glucose 121 and creatinine 1.2. So, at this time, we will continue the same basal and bolus insulin regimen as given with Humalog given as 14 units subcu t.i.d. before meals as ordered. We will continue also the basal insulin given as Levemir at 20 units subcu every 10:00 a.m. and 30 units every 10:00 p.m. as given. We will continue the low-dose correction scale using Humalog insulin as ordered. We will titrate incremental as indicated to optimize metabolic control. We will follow with you. Lupe Subramanian MD
[2017-02-22] MEDS ORDERED: Aspirin-Dipyridamole 200-25 mg ER Cap PO SCH (22:00)
[2017-02-23 05:43] LABS: HEMATOCRIT 26.7 % (34.0-47.0); MEAN CELL VOLUME 82.7 fl (81.0-99.0); MEAN CORPUSCULAR HGB CONC 32.7 g/dL (33.0-37.0); RED CELL DISTRIBUTION WIDTH 16.9 % (11.5-14.5); WHITE BLOOD COUNT 3.8 K/uL (4.8-10.8)
[2017-02-23 06:07] LABS: BLOOD UREA NITROGEN 21 mg/dl (7-17); CALCIUM 8.9 mg/dL (8.4-10.2); CARBON DIOXIDE 29 mmol/L (22-30); CHLORIDE 105 mmol/L (98-107); GFR AFRICAN-AMERICAN > 60; GLUCOSE,RANDOM 94 mg/dL (65-105); POTASSIUM 3.7 MMOL/L (3.6-5.0); SODIUM 141 mmol/l (132-148)
[2017-02-23] MEDS: Insulin Lispro (humaLOG) 100 Units/ml Inj SC SCH ×4 (06:43→12:47)
[2017-02-23] MEDS: Levothyroxine 200 MCG TAB PO SCH (07:01)
[2017-02-23] MEDS ORDERED: Metoprolol Succinate 100 mg XL Tab PO SCH (09:00)
[2017-02-23] MEDS: Potassium Chloride 20 mEq ER Tab PO SCH (09:16)
[2017-02-23] MEDS: Insulin Detemir 100 Units/ml Inj SC SCH (09:18)
[2017-02-23] MEDS: Patient's Own Med (Vilazodone Hcl [Viibryd] 20 mg) PO SCH (09:18)
--- NOTE | 2017-02-23 10:06 | CP.PCM.PN ---
Subjective - Date & Time of Evaluation Date of Evaluation: 02/23/17 Time of Evaluation: 10:01 - Subjective Subjective: Toleraqted once daily HS dose of Aggrenox without headache. Will maintain this dose schedule for one week then try increasing back to BID. Blood pressure elevation still noted, but less elevated over the last 24 hrs. Had IV infiltrate with iron infusion, now has an area of local erythema and pinful swelling. Will continue with warm compresses. This should resolve slowly with local wound care. Over all she appears to be improved. able to ambulate with therapist and walker. Still mild transient unsteady feeling when coming to a standing position, but less. Will be discharged to home today. Call office tomorrow for followup appointment. Objective - Vital Signs/Intake and Output Vital Signs (last 24 hours): Temp Pulse Resp BP Pulse Ox 98 F 72 18 159/77 H 99 02/23/17 08:00 02/23/17 09:19 02/23/17 08:00 02/23/17 09:19 02/23/17 08:00 - Medications Medications: Current Medications Acetaminophen (Tylenol 325mg Tab) 650 mg PO Q6 PRN PRN Reason: Pain, Mild (1-3) Last Admin: 02/20/17 16:02 Dose: 650 mg Acetaminophen (Tylenol 325mg Tab) 650 mg PO Q6 PRN PRN Reason: Pain, moderate (4-7) Last Admin: 02/21/17 21:45 Dose: 650 mg Albuterol (Ventolin Hfa 90 Mcg/Actuation (8 G)) 2 puff IH Q6H PRN PRN Reason: Shortness of Breath Allopurinol (Zyloprim) 300 mg PO DAILY [facility] Last Admin: 02/23/17 09:16 Dose: 300 mg Alprazolam (Xanax) 0.25 mg PO HS PRN PRN Reason: Anxiety Stop: 02/24/17 12:39 Last Admin: 02/18/17 18:40 Dose: 0.25 mg Aspirin (Aspirin Chewable) 81 mg PO DAILY [facility] Last Admin: 02/23/17 09:16 Dose: 81 mg Atorvastatin Calcium (Lipitor) 20 mg PO HS [facility] Last Admin: 02/22/17 22:01 Dose: 20 mg Clonidine HCl (Catapres) 0.2 mg PO BID [facility] Last Admin: 02/23/17 09:19 Dose: 0.2 mg Clopidogrel Bisulfate (Plavix) 75 mg PO DAILY [facility] Last Admin: 02/23/17 09:16 Dose: 75 mg Diphenhydramine HCl (Benadryl) 25 mg PO HS PRN PRN Reason: Sleep Last Admin: 02/23/17 00:10 Dose: 25 mg Dipyridamole/Aspirin (Aggrenox 25-200 Mg) 1 ea PO HS [facility] Last Admin: 02/22/17 22:02 Dose: 1 ea Ergocalciferol (Drisdol 50,000 Intl Units Cap) 1 cap PO FR [facility] Last Admin: 02/19/17 14:48 Dose: 1 cap Famotidine (Pepcid) 20 mg PO BID [facility] Last Admin: 02/23/17 09:16 Dose: 20 mg Fluticasone Propionate (Flonase) 1 spr GOPI DAILY PRN PRN Reason: Allergy symptoms Furosemide (Lasix) 40 mg PO BID [facility] Last Admin: 02/23/17 09:17 Dose: 40 mg Home Med (Ranolazine [Ranexa]) 500 mg PO BID [facility] Last Admin: 02/23/17 09:14 Dose: 500 mg Home Med (Vilazodone Hcl [Viibryd]) 20 mg PO DAILY [facility] Last Admin: 02/23/17 09:18 Dose: 20 mg Hydrocortisone (Cortizone 1% Cream) 1 applic TOP BID [facility] Last Admin: 02/23/17 09:20 Dose: 1 applic Insulin Detemir (Levemir) 20 units SC DAILY [facility] Last Admin: 02/23/17 09:18 Dose: 20 units Insulin Detemir (Levemir) 30 units SC HS [facility] Last Admin: 02/22/17 22:03 Dose: 30 units Insulin Human Lispro (Humalog) 0 units SC ACHS [facility] PRN Reason: Protocol Last Admin: 02/23/17 06:43 Dose: Not Given Insulin Human Lispro (Humalog) 14 units SC AC [facility] Last Admin: 02/23/17 07:55 Dose: Not Given Levothyroxine Sodium (Synthroid) 200 mcg PO ACB [facility] Last Admin: 02/23/17 07:01 Dose: 200 mcg Lisinopril (Zestril) 10 mg PO DAILY [facility] Last Admin: 02/23/17 09:18 Dose: 10 mg Loratadine (Claritin) 10 mg PO HS [facility] Last Admin: 02/22/17 22:01 Dose: 10 mg Metformin HCl (Glucophage) 500 mg PO BID [facility] Last Admin: 02/23/17 09:20 Dose: 500 mg Metoprolol Succinate (Toprol Xl) 100 mg PO DAILY [facility] Last Admin: 02/23/17 09:17 Dose: 100 mg Montelukast Sodium (Singulair) 10 mg PO HS [facility] Last Admin: 02/22/17 22:01 Dose: 10 mg Nystatin (Nystop Topical Powder) 1 applic TOP TID [facility] Last Admin: 02/22/17 18:01 Dose: 1 applic Potassium Chloride (K-Dur 20 Meq Er Tab) 40 meq PO BID [facility] Last Admin: 02/23/17 09:16 Dose: 40 meq - Labs Labs: 02/23/17 04:20 02/23/17 04:20 PT 14.0 Seconds (9.8-13.1) H 02/17/17 09:28 INR 1.2 (0.9-1.2) 02/17/17 09:28 APTT 39.1 Seconds (25.6-37.1) H 02/17/17 09:28 Assessment and Plan (1) TIA (transient ischemic attack) Status: Acute (2) Asthma Status: Chronic (3) Morbid obesity Status: Chronic (4) Anemia Status: Chronic (5) Obstructive sleep apnea (adult) (pediatric) Status: Chronic (6) Obesity hypoventilation syndrome Status: Chronic
--- NOTE | 2017-02-23 11:13 | CP.PCM.DIS ---
Provider - Provider Date of Admission: 02/19/17 05:22 Attending physician: J Luis Abraham DO Primary care physician: Dr. Dumont Consults: Dr. Tim Vizcaino Time Spent in preparation of Discharge (in minutes): 25 Hospital Course - Lab Results Lab Results: Most Recent Lab Values WBC 3.8 K/uL (4.8-10.8) L 02/23/17 04:20 RBC 3.23 Mil/uL (3.80-5.20) L 02/23/17 04:20 Hgb 8.7 g/dL (12.0-16.0) L 02/23/17 04:20 Hct 26.7 % (34.0-47.0) L 02/23/17 04:20 MCV 82.7 fl (81.0-99.0) 02/23/17 04:20 MCH 27.0 pg (27.0-31.0) 02/23/17 04:20 MCHC 32.7 g/dL (33.0-37.0) L 02/23/17 04:20 RDW 16.9 % (11.5-14.5) H 02/23/17 04:20 Plt Count 132 K/uL (130-400) 02/23/17 04:20 MPV 7.9 fl (7.2-11.7) 02/17/17 09:28 Neut % (Auto) 62.2 % (50.0-75.0) 02/17/17 09:28 Lymph % (Auto) 27.8 % (20.0-40.0) 02/17/17 09:28 [place]kin % (Auto) 6.7 % (0.0-10.0) 02/17/17 09:28 Eos % (Auto) 3.0 % (0.0-4.0) 02/17/17 09:28 Baso % (Auto) 0.3 % (0.0-2.0) 02/17/17 09:28 Neut # 2.1 K/uL (1.8-7.0) 02/17/17 09:28 Lymph # 0.9 K/uL (1.0-4.3) L 02/17/17 09:28 Pitkin # 0.2 K/uL (0.0-0.8) 02/17/17 09:28 Eos # 0.1 K/uL (0.0-0.7) 02/17/17 09:28 Baso # 0.0 K/uL (0.0-0.2) 02/17/17 09:28 Retic Count 3.4 % (0.5-1.5) H D 02/18/17 04:10 PT 14.0 Seconds (9.8-13.1) H 02/17/17 09:28 INR 1.2 (0.9-1.2) 02/17/17 09:28 APTT 39.1 Seconds (25.6-37.1) H 02/17/17 09:28 Sodium 141 mmol/l (132-148) 02/23/17 04:20 Potassium 3.7 MMOL/L (3.6-5.0) 02/23/17 04:20 Chloride 105 mmol/L (98-107) 02/23/17 04:20 Carbon Dioxide 29 mmol/L (22-30) 02/23/17 04:20 Anion Gap 10 (10-20) 02/23/17 04:20 BUN 21 mg/dl (7-17) H 02/23/17 04:20 Creatinine 1.1 mg/dL (0.7-1.2) 02/23/17 04:20 Est GFR ( Amer) > 60 02/23/17 04:20 Est GFR (Non-Af Amer) 53 02/23/17 04:20 POC Glucose (mg/dL) 89 mg/dL (65-110) 02/23/17 05:47 Random Glucose 94 mg/dL (65-105) 02/23/17 04:20 Hemoglobin A1c 7.0 % (4.2-6.5) H 02/17/17 09:28 Calcium 8.9 mg/dL (8.4-10.2) 02/23/17 04:20 Iron 30 ug/dL (37-170) L 02/18/17 04:10 TIBC 415 ug/dL (250-450) 02/18/17 04:10 % Saturation 7 % (20-55) L 02/18/17 04:10 Ferritin 14.0 ng/Ml (6.24-137.0) 02/18/17 04:10 Total Bilirubin 0.3 mg/dl (0.2-1.3) 02/18/17 04:10 AST 56 U/L (14-36) H 02/18/17 04:10 ALT 37 U/L (9-52) 02/18/17 04:10 Alkaline Phosphatase 69 U/L (38-126) 02/18/17 04:10 Troponin I < 0.0120 ng/mL (0.00-0.120) 02/17/17 09:28 NT-Pro-B Natriuret Pep 187 pg/ml (0-450) 02/17/17 09:28 Total Protein 7.0 G/DL (6.3-8.2) 02/18/17 04:10 Albumin 3.6 g/dL (3.5-5.0) 02/18/17 04:10 Globulin 3.4 gm/dL (2.2-3.9) 02/18/17 04:10 Albumin/Globulin Ratio 1.0 (1.0-2.1) 02/18/17 04:10 Triglycerides 163 mg/DL (0-149) H 02/17/17 09:28 Cholesterol 140 mg/dL (0-199) 02/17/17 09:28 LDL Cholesterol Direct 67 mg/dL (0-129) 02/17/17 09:28 HDL Cholesterol 33 MG/DL (30-70) 02/17/17 09:28 Vitamin B12 805 pg/mL (239-931) 02/18/17 04:10 25-OH Vitamin D Total 24.9 NG/ML (30.0-100.0) L 02/18/17 15:26 Thyroxine (T4) 6.50 ug/dl (5.5-11.0) 02/18/17 04:10 TSH 3rd Generation 4.33 mIU/ML (0.46-4.68) 02/18/17 04:10 Cortisol AM Sample 3.2 ug/dL (4.46-22.7) L 02/18/17 04:10 Blood Type A POSITIVE 02/17/17 09:28 Antibody Screen Negative 02/17/17 09: BBK History Checked Patient has bt 02/17/17: - Hospital Course Hospital Course: This is a 47-year-old female with a long-standing history of bronchial asthma, also with history of CVA, morbid obesity, sinusitis, and suspected obesity/ hypoventilation syndrome,diabetes mellitus type II, cardiomyopathy, coronary artery disease with 4 stents, history of pulmonary embolism,history of right eye malignant tumor in 1976, who on 02/17/2017 stated she had a sudden onset left upper and left lower extremity weakness when she woke up. She noted that when trying to walk to the bathroom and felt like she was "out of control of her left leg". After a concern that she might fall secondary to weakness, she came to the emergency department. In the ED, code stroke was called given her symptoms. CT scan without contrast was performed showed no significant interval change from previous head CT on 02/10/2016. The head and neck CT was also performed revealing asymmetric severe narrowing of the right posterior cerebral artery which may be related to severe underlying atherosclerosis. Dr. Hoyt, neurologist, was consulted. The patient was also noted to have anemia with a hemoglobin of 8.5 on admission for which Dr. Renan Vizcaino was called. Given the concern for CVA, the patient was then admitted on telemetry for further monitoring and workup. MRI showed no acute CVA. During her hospital course, the patient's left sided weakness slowly improved with physical therapy. She recieved Venofir infusions while in house as per Dr. Vizcaino for her anemia. The patient did have elevated BP yesterday and today, uncontrolled, likely due to rebound hypertension from Clonidine- her scheduling of these medications are readjusted. Today, she is able to ambulate with a walker. Her BP is better controlled. She is being discharged today in stable condition. 1.Left sided weakness- likely multifactorial etiology, no acute CVA found on CT or MRI. Still complains of left arm weakness and unsteady gait CTA neck showed severe narrowing of the right posterior cerebral artery. possibly patient's symptoms are multifactorial : related to peripheral neuropathy with radiculopathy vitamin B12 , TSH, vitamin D - normal Consultation with Dr. Hoyt appreciated Continue PT while in house for gait training. Willd/c home with home PT or outpatient physical therapy Continue Plavix/ statin started aggrenox as per neuro ( d/c ASA ) Ag. Decresaed to once a day due to patient complaining of SWANSON Continue better BP control 2. Uncontrolled BP, now improved, continue the following medications at home: Continue Toprol XL 100 mg PO daily Continue clonidine 0.2 mg po q12h Continue lisinopril 10 mg po daily 3.Acute on chronic anemia Consultation with Dr. Vizcaino during her inpatient stay. patient had recent bone marrow that showed only iron deficiency Iron levels 30 , iron saturation 75 Recieved daily iron infusions during admission Patient to follow up with Dr. Vizcaino for iron infusion as outpatient 4.Chronic bronchial asthma Consultation with Dr. Tim valdivia her stay Patient saturating well, hemodynamically stable continue Claritin 10 mg po HS Continue Singulair 10 mg po HS To follow up with Dr. Dumont in a week 5.DM type [address] Subramanian appreciated Lispro sliding scale Levemir SC BID 20 units AM and 30 units HS Humalog 14 units SQ TID Accuchecks AC+HS 6.CAD with stents Continue ASA, Plavix, statin as outpatient 7.Hypothyroidism Continue Synthroid as outpatient 8. Morbid obesity BMI 54 9.Pancytopenia Hematology following Recent bone marrow bx showed only iron deficiency Discharge Exam - Additional Findings Additional findings: Physical exam: Constitutional- cooperative, awake, alert, morbidly obese female in no apparent distress. Head- NCAT, PERRL Eye- PERRL, normal accommodation in left eye, patch over right eye. ENT- normal exam, MMM. Neck- normal inspection, supple, no JVD Respiratory- CTAB, no wheezes rales rhonchi Cardiovascular- RRR, +S1, +S2 no MRG GI/Abdominal- normal bowel sounds, soft, no mass, no hsm Skin- warm, dry, fungal rash to lower abdomen for which she is getting Nystatin powder Extremities Exam- normal capillary refill, normal inspection Neurological Exam: CN II-XII Intact, Oriented x3 Neuro motor strength exam: Left Upper Extremity: 4, Right Upper Extremity: 5, Left Lower Extremity: 5, Right Lower Extremity: 5 Psych- normal mood, normal affect Discharge Plan - Discharge Medications Prescriptions: Aspirin/Dipyridamole [Aggrenox 25-200 mg] 1 ea PO HS #30 cap Lisinopril [Zestril] 10 mg PO DAILY #30 tab - Follow Up Plan Condition: STABLE Disposition: HOME/ ROUTINE Instructions: Transient Ischemic Attack (DC), Asthma (DC), Obesity (DC), Obesity (GEN) Additional Instructions: Resume Toprol XL 100mg daily. Take Lisinopril 5mg daily. Continue Clonidine 0.2 mg po q 12 hours
--- NOTE | 2017-02-23 13:09 | CP.PCM.PN ---
Subjective - Date & Time of Evaluation Date of Evaluation: 02/23/17 Time of Evaluation: 13:04 - Subjective Subjective: Pt's hgb is improving . Her blood pressure still fluctuates so her discharge was held. .Will repeat cbc in 2 weeks. Objective - Vital Signs/Intake and Output Vital Signs (last 24 hours): Temp Pulse Resp BP Pulse Ox 97.9 F 69 18 169/79 H 100 02/23/17 12:31 02/23/17 12:31 02/23/17 12:31 02/23/17 12:31 02/23/17 12:31 - Medications Medications: Current Medications Acetaminophen (Tylenol 325mg Tab) 650 mg PO Q6 PRN PRN Reason: Pain, Mild (1-3) Last Admin: 02/20/17 16:02 Dose: 650 mg Acetaminophen (Tylenol 325mg Tab) 650 mg PO Q6 PRN PRN Reason: Pain, moderate (4-7) Last Admin: 02/21/17 21:45 Dose: 650 mg Albuterol (Ventolin Hfa 90 Mcg/Actuation (8 G)) 2 puff IH Q6H PRN PRN Reason: Shortness of Breath Allopurinol (Zyloprim) 300 mg PO DAILY [facility] Last Admin: 02/23/17 09:16 Dose: 300 mg Alprazolam (Xanax) 0.25 mg PO HS PRN PRN Reason: Anxiety Stop: 02/24/17 12:39 Last Admin: 02/18/17 18:40 Dose: 0.25 mg Aspirin (Aspirin Chewable) 81 mg PO DAILY [facility] Last Admin: 02/23/17 10:39 Dose: Not Given Atorvastatin Calcium (Lipitor) 20 mg PO HS [facility] Last Admin: 02/22/17 22:01 Dose: 20 mg Clonidine HCl (Catapres) 0.2 mg PO BID [facility] Last Admin: 02/23/17 09:19 Dose: 0.2 mg Clopidogrel Bisulfate (Plavix) 75 mg PO DAILY [facility] Last Admin: 02/23/17 09:16 Dose: 75 mg Diphenhydramine HCl (Benadryl) 25 mg PO HS PRN PRN Reason: Sleep Last Admin: 02/23/17 00:10 Dose: 25 mg Dipyridamole/Aspirin (Aggrenox 25-200 Mg) 1 ea PO HS [facility] Last Admin: 02/22/17 22:02 Dose: 1 ea Ergocalciferol (Drisdol 50,000 Intl Units Cap) 1 cap PO FR [facility] Last Admin: 02/19/17 14:48 Dose: 1 cap Famotidine (Pepcid) 20 mg PO BID [facility] Last Admin: 02/23/17 09:16 Dose: 20 mg Fluticasone Propionate (Flonase) 1 spr GOPI DAILY PRN PRN Reason: Allergy symptoms Furosemide (Lasix) 40 mg PO BID [facility] Last Admin: 02/23/17 09:17 Dose: 40 mg Home Med (Ranolazine [Ranexa]) 500 mg PO BID [facility] Last Admin: 02/23/17 09:14 Dose: 500 mg Home Med (Vilazodone Hcl [Viibryd]) 20 mg PO DAILY [facility] Last Admin: 02/23/17 09:18 Dose: 20 mg Hydrocortisone (Cortizone 1% Cream) 1 applic TOP BID [facility] Last Admin: 02/23/17 09:20 Dose: 1 applic Insulin Detemir (Levemir) 20 units SC DAILY [facility] Last Admin: 02/23/17 09:18 Dose: 20 units Insulin Detemir (Levemir) 30 units SC [facility] Last Admin: 02/22/17 22:03 Dose: 30 units Insulin Human Lispro (Humalog) 0 units SC [facility] PRN Reason: Protocol Last Admin: 02/23/17 12:47 Dose: Not Given Insulin Human Lispro (Humalog) 14 units SC AC [facility] Last Admin: 02/23/17 12:46 Dose: 14 units Levothyroxine Sodium (Synthroid) 200 mcg PO ACB [facility] Last Admin: 02/23/17 07:01 Dose: 200 mcg Lisinopril (Zestril) 10 mg PO DAILY [facility] Last Admin: 02/23/17 09:18 Dose: 10 mg Loratadine (Claritin) 10 mg PO HS [facility] Last Admin: 02/22/17 22:01 Dose: 10 mg Metformin HCl (Glucophage) 500 mg PO BID [facility] Last Admin: 02/23/17 09:20 Dose: 500 mg Metoprolol Succinate (Toprol Xl) 100 mg PO DAILY [facility] Last Admin: 02/23/17 09:17 Dose: 100 mg Montelukast Sodium (Singulair) 10 mg PO HS [facility] Last Admin: 02/22/17 22:01 Dose: 10 mg Nystatin (Nystop Topical Powder) 1 applic TOP TID [facility] Last Admin: 02/23/17 12:47 Dose: 1 applic Potassium Chloride (K-Dur 20 Meq Er Tab) 40 meq PO BID [facility] Last Admin: 02/23/17 09:16 Dose: 40 meq - Labs Labs: 02/23/17 04:20 02/23/17 04:20 PT 14.0 Seconds (9.8-13.1) H 02/17/17 09:28 INR 1.2 (0.9-1.2) 02/17/17 09:28 APTT 39.1 Seconds (25.6-37.1) H 02/17/17 09:28
--- NOTE | 2017-02-23 14:13 | PN ---
ENDOCRINOLOGY FOLLOWUP LOCATION: Room 418. SUBJECTIVE: This is a 47-year-old female with recent uncontrolled type 1 insulin-dependent diabetes, now being followed closely for metabolic management. Her glycemic levels are fluctuating, but much improved at this time, and the latest glucose levels have ranged from 89 mg/dL to 181 mg/dL. Her latest chemistry showed a BUN of 21, sodium 141, potassium 3.7, chloride 105, CO2 of 29, glucose 94, and creatinine 1.1. PLAN: So at this time, we will continue the same basal and bolus insulin regimen to allow for dose equilibration and keep her on the Humalog given as 14 units before meals, and Levemir given as 20 units at 10:00 a.m. and 30 units at 10:00 p.m. daily as ordered. We will obtain serial chemistries and supplement accordingly as needed. We will follow. Lupe Subramanian MD
[2017-02-23 15:44] VITALS: BP 132/77; PULSE 73; RESP 20; TEMP 97; O2SAT 97
== END 2017-02-23 17:10 | disposition home health service (06) | DRG 68 ==
LOC: H.ER 09:03 → H.ERHOLD 12:43 → H.TEL 15:27 → OBSVTOIN 02-19 05:22
PROVIDERS: ADMIT Internal Medicine; ATTEND Internal Medicine
DX: I66.21 Occlusion and stenosis of right posterior cerebral artery (principal); D61.818 Other pancytopenia; Z68.43 Body mass index [BMI] 50.0-59.9, adult; G81.94 Hemiplegia, unspecified affecting left nondominant side; I42.9 Cardiomyopathy, unspecified; E11.42 Type 2 diabetes mellitus with diabetic polyneuropathy; E11.51 Type 2 diabetes mellitus with diabetic peripheral angiopathy without gangrene; E66.2 Morbid (severe) obesity with alveolar hypoventilation; D50.9 Iron deficiency anemia, unspecified; E03.9 Hypothyroidism, unspecified; E78.5 Hyperlipidemia, unspecified; I10 Essential (primary) hypertension; G43.909 Migraine, unspecified, not intractable, without status migrainosus; G47.33 Obstructive sleep apnea (adult) (pediatric); G44.209 Tension-type headache, unspecified, not intractable; H54.61 Unqualified visual loss, right eye, normal vision left eye; K29.50 Unspecified chronic gastritis without bleeding; K31.84 Gastroparesis; I25.10 Atherosclerotic heart disease of native coronary artery without angina pectoris; J45.909 Unspecified asthma, uncomplicated; K21.9 Gastro-esophageal reflux disease without esophagitis; E11.319 Type 2 diabetes mellitus with unspecified diabetic retinopathy without macular edema; M81.0 Age-related osteoporosis without current pathological fracture; I25.2 Old myocardial infarction; Z79.02 Long term (current) use of antithrombotics/antiplatelets; Z79.4 Long term (current) use of insulin; Z79.82 Long term (current) use of aspirin; Z86.711 Personal history of pulmonary embolism; Z95.5 Presence of coronary angioplasty implant and graft; Z86.73 Personal history of transient ischemic attack (TIA), and cerebral infarction without residual deficits; Z86.74 Personal history of sudden cardiac arrest; Z85.89 Personal history of malignant neoplasm of other organs and systems; Z92.3 Personal history of irradiation; Z92.21 Personal history of antineoplastic chemotherapy; Z88.6 Allergy status to analgesic agent; Z88.1 Allergy status to other antibiotic agents; Z88.0 Allergy status to penicillin; Z86.718 Personal history of other venous thrombosis and embolism

== ENCOUNTER 2017-04-09 11:47 | Observation (INO) | payer OTHER, MEDICARE ==
[2017-04-09 11:59] VITALS: BMI 55.3
--- NOTE | 2017-04-09 12:29 | ED PDOC ---
HPI: Chest Pain Time Seen by Provider: 04/09/17 12:09 Chief Complaint (Nursing): Chest Pain History Per: Patient Onset/Duration Of Symptoms: Days (2) Current Symptoms Are (Timing): Intermittent Episodes Severity: Moderate Quality: Burning Associated Symptoms: Dyspnea Alleviating Factors: None Additional Complaint(s): Back pain radiating to chest assoc with SOB since last night. Improves with sitting up. Denies cough or fever. No leg pain. Fell last week. No LOC Past Medical History Vital Signs: Last Vital Signs Temp 98.7 F 04/09/17 11:56 Pulse 79 04/09/17 11:56 Resp 16 04/09/17 11:56 BP 173/63 H 04/09/17 11:56 Pulse Ox 99 04/09/17 12:30 - Medical History PMH: Anemia, Anxiety, Arthritis, Asthma, Bronchitis, CAD, CHF, Depression, Diabetes, Deep Vein Thrombosis, GERD, HTN, Hypercholesterolemia, Hypothyroidism , Osteoporosis, Peripheral Edema, Pulmonary Embolism, Sleep Apnea (use c-pap), TIA Denies: HIV, Chronic Kidney Disease - Surgical History Surgical History: Coronary Stent (3x), Endoscopy, Tonsillectomy - Family History Family History: States: Unknown Family Hx - Immunization History Hx Tetanus Toxoid Vaccination: No Hx Influenza Vaccination: Yes Hx Pneumococcal Vaccination: No - Home Medications Home Medications: Ambulatory Orders Medication Instructions Recorded Ranolazine [Ranexa] 500 mg PO BID #0 ter 09/18/14 Levothyroxine [Synthroid] 200 mcg PO ACB 12/19/14 Potassium Chloride [K-Dur 20 mEq 40 meq PO BID 12/19/14 ER Tab] Montelukast [Singulair] 10 mg PO HS 02/07/16 Allopurinol [Zyloprim] 300 mg PO DAILY #0 tab 02/21/16 Clopidogrel [Plavix] 75 mg PO DAILY #0 tab 02/21/16 Vilazodone HCl [Viibryd] 20 mg PO DAILY 04/28/16 cloNIDine [Catapres] 0.2 mg PO BID 04/28/16 ALPRAZolam [Xanax] 0.25 mg PO HS PRN 08/19/16 DiphenhydrAMINE [Benadryl] 25 mg PO HS PRN 08/19/16 Ergocalciferol (Vitamin D2) 50,000 unit PO TH 08/19/16 [Vitamin D2] Furosemide [Lasix] 40 mg PO BID 08/19/16 Levocetirizine Dihydrochloride 5 mg PO HS 08/19/16 [Xyzal] Mometasone Furoate [Nasonex] 1 spray GOPI DAILY PRN 08/19/16 Nystatin/Triamcinolone 1 appl TOP TID 08/19/16 [Nystatin/Triamcinolone Ointment] Rosuvastatin Calcium [Crestor] 10 mg PO HS 08/19/16 metFORMIN [glucOPHAGE] 500 mg PO BID 08/19/16 Famotidine [Pepcid] 20 mg PO DAILY 02/17/17 Levalbuterol Tartrate [Xopenex Hfa] 2 puff IH Q6H PRN 02/17/17 Albuterol HFA [Ventolin HFA 90 2 puff IH Q6H PRN inhaler 02/22/17 mcg/actuation (8 g)] Aspirin/Dipyridamole [Aggrenox 1 ea PO HS #30 cap 02/22/17 25-200 mg] Metoprolol Succinate [Toprol XL] 100 mg PO DAILY 02/22/17 Insulin Aspart, Recombinant 15 unit SC ACTID 03/08/17 [Novolog] Insulin Detemir [Levemir] 20 units SC BID 03/08/17 Insulin Detemir [Levemir] 30 units SC DAILY 03/08/17 Lisinopril [Zestril] 5 mg PO BID 03/08/17 - Allergies Allergies/Adverse Reactions: Allergies Allergy/AdvReac Type Severity Reaction Status Date / Time ciprofloxacin Allergy NAUSEA Verified 02/17/17 09:09 codeine Allergy FATIGUE Verified 02/17/17 09:09 kiwi Allergy RASH Verified 02/17/17 09:09 mustard Allergy RASH Verified 02/17/17 09:09 Penicillins Allergy ANAPHYLAXIS Verified 02/17/17 09:09 pepper Allergy RASH Verified 02/17/17 09:09 Sulfa (Sulfonamide Allergy RASH Verified 02/17/17 09:09 Antibiotics) tomato Allergy RASH Verified 02/17/17 09:09 amlodipine [From Norvasc] AdvReac RASH Verified 02/17/17 09:09 metoclopramide HCl AdvReac DIZZINESS Verified 02/17/17 09:09 [From Reglan] filberts Allergy SWELLING Uncoded 01/05/17 10:01 Wells Criteria for PE - Wells Criteria for Pulmonary Embolism Clinical Signs and Symptoms of DVT: No P.E is #1 Diagnosis, or Equally Likely: No Heart Rate >100: No Immobilization at least 3 days;Surgery previous 4 weeks: No Previous, objectively diagnosed PE or DVT: Yes Hemoptysis: No Malignancy w/treatment within 6 months, or palliative: No Total Score: 1.5 Review of Systems ROS Statement: Except As Marked, All Systems Reviewed And Found Negative Cardiovascular: Positive for: Chest Pain Respiratory: Positive for: Shortness of Breath Physical Exam - Reviewed Nursing Documentation Reviewed: Yes Vital Signs Reviewed: Yes - Physical Exam Appears: Positive for: Non-toxic, No Acute Distress Head Exam: Positive for: ATRAUMATIC, NORMAL INSPECTION, NORMOCEPHALIC Skin: Positive for: Normal Color, Warm, DRY Eye Exam: Positive for: EOMI, Normal appearance, PERRL ENT: Positive for: Normal ENT Inspection Neck: Positive for: Normal, Painless ROM Cardiovascular/Chest: Positive for: Regular Rate, Rhythm Respiratory: Positive for: CNT, Normal Breath Sounds Gastrointestinal/Abdominal: Positive for: Normal Exam, Bowel Sounds, Soft Back: Positive for: Normal Inspection Extremity: Positive for: Normal ROM Neurologic/Psych: Positive for: Alert, Oriented - Laboratory Results Result Diagrams: 04/09/17 12:54 04/09/17 12:54 - ECG O2 Sat by Pulse Oximetry: 99 Disposition - Clinical Impression Clinical Impression: Anemia - Patient ED Disposition Is Patient to be Admitted: Yes - Disposition Disposition Time: 17:14 Condition: FAIR Forms: [facility] (Mongolian) - Pt Status Changed To: Hospital Disposition Of: Observation - POA Present On Arrival: None
[2017-04-09 13:06] LABS: BASO # 0.1 K/uL (0.0-0.2); BASO % 2.1 % (0.0-2.0); EOS # 0.1 K/uL (0.0-0.7); EOS % 1.9 % (0.0-4.0); HEMATOCRIT 24.4 % (34.0-47.0); LYMPH # 0.8 K/uL (1.0-4.3); LYMPH % 27.7 % (20.0-40.0); MEAN CELL VOLUME 82.3 fl (81.0-99.0); MEAN CORPUSCULAR HEMOGLOBIN 25.9 pg (27.0-31.0); MEAN CORPUSCULAR HGB CONC 31.5 g/dL (33.0-37.0); MEAN PLATELET VOLUME 7.7 fl (7.2-11.7); MONO # 0.2 K/uL (0.0-0.8); MONO % 5.3 % (0.0-10.0); NEUT # 1.9 K/uL (1.8-7.0); NRBC % 0.1 % (0.0-0.0); RED CELL DISTRIBUTION WIDTH 19.1 % (11.5-14.5)
[2017-04-09 13:22] LABS: ALKALINE PHOSPHATASE 71 U/L (38-126); ALT/SGPT 41 U/L (9-52); AST/SGOT 44 U/L (14-36); BILIRUBIN,TOTAL 0.5 mg/dl (0.2-1.3); BLOOD UREA NITROGEN 17 mg/dl (7-17); CALCIUM 8.7 mg/dL (8.4-10.2); CARBON DIOXIDE 29 mmol/L (22-30); CHLORIDE 104 mmol/L (98-107); GFR AFRICAN-AMERICAN > 60; GLUCOSE,RANDOM 203 mg/dL (65-105); SODIUM 141 mmol/l (132-148); TOTAL PROTEIN 7.1 G/DL (6.3-8.2)
[2017-04-09] MEDS ORDERED: Iodixanol 320 MG/ML 100 ML BOTTLE IV ONE (14:02)
--- NOTE | 2017-04-09 14:13 | RAD ---
HISTORY: Chest pain COMPARISON: 02/17/2017 TECHNIQUE: Chest PA and lateral FINDINGS: LUNGS: No active pulmonary disease. PLEURA: No significant pleural effusion identified. No pneumothorax apparent. CARDIOVASCULAR: No radiographic findings to suggest acute or significant cardiovascular disease. OSSEOUS STRUCTURES: No significant abnormalities. VISUALIZED UPPER ABDOMEN: Normal. OTHER FINDINGS: None. IMPRESSION: No active disease. No significant interval change compared to the prior examination(s).
--- NOTE | 2017-04-09 14:41 | CT ---
PROCEDURE: CT Chest with contrast (Pulmonary Angiogram) HISTORY: Elevated d dimer COMPARISON: Chest CT without contrast 07/06/2014. TECHNIQUE: Axial computed tomography images were obtained of the chest in the pulmonary arterial phase of enhancement. Coronal and sagittal reformatted images were created and reviewed. Intravenous contrast dose: Visipaque 320, 93 cc. Radiation dose: Total exam DLP = 477.80 mGy-cm. This CT exam was performed using one or more of the following dose reduction techniques: Automated exposure control, adjustment of the mA and/or kV according to patient size, and/or use of iterative reconstruction technique. FINDINGS: PULMONARY ARTERIES: Unremarkable. No pulmonary embolism. AORTA: No acute findings. No thoracic aortic aneurysm. LUNGS: Ground-glass opacity is identified at the bilateral lung bases in a mild fashion which is nonspecific but may reflect limited interstitial pulmonary disease. No alveolitis or pulmonary mass or central airway lesion. PLEURAL SPACES: Unremarkable. No effusion or pneuomothorax. HEART: Unremarkable. No cardiomegaly. No significant pericardial effusion. LYMPH NODES: 1.7 x 1.0 cm enlarged lymph node is seen in the preaortic space with remaining lymph nodes in the mediastinum appear normal as well as the bilateral hilar regions. BONES, CHEST WALL: Unremarkable. No fracture or destructive lesion OTHER FINDINGS: Incidental splenomegaly up to 15.3 cm. Mild retroperitoneal lymphadenopathy. Peripancreatic reaction questioned around pancreas head with the gallbladder distended. No radiodense cholelithiasis appreciable. Clinically correlate for potential pancreatitis. IMPRESSION: 1. No CT evidence indicating pulmonary embolus. 2. Ground-glass opacity at the bilateral lung bases may reflect limited interstitial pulmonary disease. Clinically correlate further. 3. No alveolar infiltrate or discrete pulmonary mass appreciable. 4. Incidental splenomegaly up to 15.3 cm. Mild retroperitoneal lymphadenopathy. Peripancreatic reaction questioned around pancreas head with the gallbladder distended. No radiodense cholelithiasis appreciable. Clinically correlate for potential pancreatitis.
[2017-04-09] MEDS ORDERED: MOMETASONE FUROATE NAS PRN (18:00)
[2017-04-09] MEDS ORDERED: Insulin Detemir 100 Units/ml Inj SC SCH (18:00)
[2017-04-09] MEDS ORDERED: Patient's Own Med (Levalbuterol Tartrate [Xopenex Hfa] 2 PUFF) IH PRN (18:00)
--- NOTE | 2017-04-09 18:15 | CP.PCM.HP ---
History of Present Illness - History of Present Illness History of Present Illness: CC: chest pressure, fatigue HPI: Thi sis a 47 y/o female with multiple medical conditions including CAD, HTN , HLD, CHF, ULICES, chronic anemia and multiple other issues who presents with CP and fatigue. States that she started having back and neck pain which then led to chest tightness since a few days ago. By today, she was feeling more fatigued , cold, and having what sounds like CP on exertion and even when she tried to lie flat. Denies palpitations or diaphoresis. The most comfortable position for her is sitting up. Denies any blood in stool. Denies cough. Denies f/c/n/v/d. She has had ongoing problems with anemia and is followed by Dr. Vizcaino. ROS: 14 systems reviewed, negative other than HPI MHx: CAD, HTN, HLD, CHF, ULICES, DM2, ULICES, anemia, GERD, blindness of right eye SHx: coronary stents, tonsil surgery, endoscopy Allergies: cipro, codeine, PCN; multiple foods Medications: Per med rec Family Hx: Patient is unaware of any significant conditions in the family Social Hx: Lives with family, no tobacco, no EtOH Present on Admission - Present on Admission Any Indicators Present on Admission: No Past Patient History - Infectious Disease Hx of Infectious Diseases: None - Past Medical History & Family History Past Medical History?: Yes - Past Social History Smoking Status: Never Smoked - CARDIAC Hx Congestive Heart Failure: Yes Hx Hypercholesterolemia: Yes Hx Hypertension: Yes Hx Peripheral Edema: Yes - PULMONARY Hx Asthma: Yes Hx Bronchitis: Yes Hx Pulmonary Embolism: Yes Hx Sleep Apnea: Yes (use c-pap) - NEUROLOGICAL Hx Transient Ischemic Attacks (TIA): Yes - HEENT Hx Blind: Yes (RT EYE) - RENAL Hx Chronic Kidney Disease: No - ENDOCRINE/METABOLIC Hx Hypothyroidism: Yes - HEMATOLOGICAL/ONCOLOGICAL Hx Anemia: Yes Hx Human Immunodeficiency Virus (HIV): No - INTEGUMENTARY Hx Dermatological Problems: No - MUSCULOSKELETAL/RHEUMATOLOGICAL Hx Arthritis: Yes Hx Osteoporosis: Yes - GASTROINTESTINAL Hx Gastrointestinal Disorders: Yes Hx Gastroesophageal Reflux: Yes Other/Comment: attempted lap band - GENITOURINARY/GYNECOLOGICAL Hx Genitourinary Disorders: No - PSYCHIATRIC Hx Anxiety: Yes Hx Depression: Yes - SURGICAL HISTORY Hx Coronary Stent: Yes (3x) Hx Tonsillectomy: Yes - ANESTHESIA Hx Anesthesia: Yes Hx Anesthesia Reactions: Yes (BREATHING, VOMITTING) Hx Malignant Hyperthermia: No Meds Allergies/Adverse Reactions: Allergies Allergy/AdvReac Type Severity Reaction Status Date / Time ciprofloxacin Allergy NAUSEA Verified 02/17/17 09:09 codeine Allergy FATIGUE Verified 02/17/17 09:09 kiwi Allergy RASH Verified 02/17/17 09:09 mustard Allergy RASH Verified 02/17/17 09:09 Penicillins Allergy ANAPHYLAXIS Verified 02/17/17 09:09 pepper Allergy RASH Verified 02/17/17 09:09 Sulfa (Sulfonamide Allergy RASH Verified 02/17/17 09:09 Antibiotics) tomato Allergy RASH Verified 02/17/17 09:09 amlodipine [From Norvasc] AdvReac RASH Verified 02/17/17 09:09 metoclopramide HCl AdvReac DIZZINESS Verified 02/17/17 09:09 [From Reglan] filberts Allergy SWELLING Uncoded 01/05/17 10:01 Physical Exam - Constitutional Appears: No Acute Distress Additional comments: morbidly obese - Head Exam Head Exam: ATRAUMATIC, NORMOCEPHALIC - Eye Exam Eye Exam: EOMI, PERRL - ENT Exam ENT Exam: Mucous Membranes Moist - Neck Exam Neck exam: Positive for: Full Rom - Respiratory Exam Respiratory Exam: Clear to Auscultation Bilateral, NORMAL BREATHING PATTERN - Cardiovascular Exam Cardiovascular Exam: REGULAR RHYTHM, +S1, +S2 - GI/Abdominal Exam GI & Abdominal Exam: Normal Bowel Sounds, Soft - Extremities Exam Extremities exam: Positive for: full ROM, pedal edema - Neurological Exam Neurological exam: Alert, CN II-XII Intact, Oriented x3 - Psychiatric Exam Psychiatric exam: Normal Affect, Normal Mood - Skin Skin Exam: Dry, Warm Results - Vital Signs Recent Vital Signs: Last Vital Signs Temp 98.7 F 04/09/17 11:56 Pulse 79 04/09/17 11:56 Resp 16 04/09/17 11:56 BP 173/63 H 04/09/17 11:56 Pulse Ox 99 04/09/17 17:16 - Labs Result Diagrams: 04/09/17 12:54 04/09/17 12:54 Labs: Laboratory Results - last 24 hr 04/09/17 04/09/17 04/09/17 12:54 12:54 12:54 WBC 3.0 L RBC 2.96 L Hgb 7.7 L Hct 24.4 L MCV 82.3 D MCH 25.9 L MCHC 31.5 L RDW 19.1 H Plt Count 122 L MPV 7.7 Neut % (Auto) 63.0 Lymph % (Auto) 27.7 Martin % (Auto) 5.3 Eos % (Auto) 1.9 Baso % (Auto) 2.1 H Neut # 1.9 Lymph # 0.8 L Martin # 0.2 Eos # 0.1 Baso # 0.1 D-Dimer, Quantitative 457 H Sodium 141 Potassium 4.0 Chloride 104 Carbon Dioxide 29 Anion Gap 12 BUN 17 Creatinine 1.0 Est GFR ( Amer) > 60 Est GFR (Non-Af Amer) 60 Random Glucose 203 H Calcium 8.7 Total Bilirubin 0.5 AST 44 H D ALT 41 Alkaline Phosphatase 71 Troponin I 0.0170 Total Protein 7.1 Albumin 3.6 Globulin 3.6 Albumin/Globulin Ratio 1.0 Lipase 04/09/17 16:10 WBC RBC Hgb Hct MCV MCH MCHC RDW Plt Count MPV Neut % (Auto) Lymph % (Auto) Martin % (Auto) Eos % (Auto) Baso % (Auto) Neut # Lymph # Martin # Eos # Baso # D-Dimer, Quantitative Sodium Potassium Chloride Carbon Dioxide Anion Gap BUN Creatinine Est GFR ( Amer) Est GFR (Non-Af Amer) Random Glucose Calcium Total Bilirubin AST ALT Alkaline Phosphatase Troponin I Total Protein Albumin Globulin Albumin/Globulin Ratio Lipase 82 - EKG Data EKG Interpreted by: Myself EKG shows normal: Sinus rhythm Rate: Normal - EKG Data EKG comments: Prior EKG with LBBB morphology but WNL QRS, today QRS 144 with similar morphology. EKG from Apr 2016 does show LBBB however, thus not new - Imaging and Cardiology CT scan - chest Status: Report reviewed by me (No acute PE) Assessment & Plan (1) Chest tightness or pressure Assessment and Plan: A/P: This is a 47 y/o female with multiple chronic medical conditions including CAD and anemia of chronic disease who comes in with CP and low H/H. 1) CP/Anemia -- CP is likely due to demand ischemia 2/2 -[facility] tele-obs -Patient is being transfused 2 U [address]BC [address] Dr. Vizcaino -Consult with Charis in the AM for possible procrit infusion -Continue home medications -- Plavix, metoprolol, statin 2) DM2 -Continue home LA insulin -SSI and qid achs accuchecks -Hold metformin since recent contrast dye infusion -DM2 diet 3) HTN -- cont home medications 4) HLD -- cont home medications 5) CHF -- stable, cont lasix 6) ULICES -- continue CPAP 7) Hypothyroid -- continue synthroid 8) DVT PPx -- SCDs only for now Status: Acute (2) Symptomatic anemia Status: Acute (3) DM2 (diabetes mellitus, type 2) Status: Acute (4) HTN (hypertension) Status: Acute (5) Hypothyroid Status: Acute (6) Obstructive sleep apnea (adult) (pediatric) Status: Chronic Priority: High
[2017-04-09] MEDS ORDERED: Albuterol HFA 90 mcg/actuation (8 g) INH PRN (18:33)
[2017-04-09] MEDS ORDERED: LEVOCETIRIZINE DIHYDROCHLORIDE 5 MG PO SCH (22:00)
[2017-04-09] MEDS ORDERED: Aspirin-Dipyridamole 200-25 mg ER Cap PO SCH (22:00)
[2017-04-09] MEDS ORDERED: Patient's Own Med (Rosuvastatin Calcium [Crestor] 10 MG) PO SCH (22:00)
[2017-04-09] MEDS: Insulin Lispro (humaLOG) 100 Units/ml Inj SC SCH (22:52)
[2017-04-10] MEDS ORDERED: Levothyroxine 200 MCG TAB PO SCH (06:30)
[2017-04-10] MEDS: Insulin Lispro (humaLOG) 100 Units/ml Inj SC SCH ×2 (06:56→13:05)
[2017-04-10 07:40] VITALS: RESP 20
[2017-04-10] MEDS ORDERED: Patient's Own Med (Vilazodone Hcl [Viibryd] 20 mg) PO SCH (09:00)
[2017-04-10] MEDS ORDERED: Metoprolol Succinate 100 mg XL Tab PO SCH (09:00)
[2017-04-10] MEDS ORDERED: Insulin Detemir 100 Units/ml Inj SC SCH (09:00)
[2017-04-10] MEDS ORDERED: Potassium Chloride 20 mEq ER Tab PO SCH (09:00)
--- NOTE | 2017-04-10 09:38 | CP.PCM.CON ---
History of Present Illness - History of Present Illness History of Present Illness: This is a 47 yrs old female well known to me for many years because of anemia. 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 She has done well without recurrence. She has had anemia of chronic disease sometimes with iron deficiency even though she does not see any bleeding in the stools or urine. She had a bone marrow done and other than iron deficiency had no other findings. She keeps getting anemic and has been admitted several times for transfusions. This time she had a fall and 2 days later came to the ER with dizziness and shortness of breath. She was found to have a hgb of 7.7gms. She was transfused 2 units of packed cells and feels better today. I had planned on starting her on procrit next week and had her precertified to come weekly as an outpatient. Past Patient History - Infectious Disease Hx of Infectious Diseases: None - Past Medical History & Family History Past Medical History?: Yes - Past Social History Smoking Status: Never Smoked - CARDIAC Hx Cardiac Disorders: Yes (CAD/HTN/High cholesterol/CHF/peripheral edema) - PULMONARY Hx Respiratory Disorders: Yes (COPD/Asthma/Bronchitis/Sleep apnea (cpap)) - NEUROLOGICAL Hx Neurological Disorder: Yes (TIA) - HEENT Hx HEENT Problems: Yes (Blind Right eye) - RENAL Hx Chronic Kidney Disease: No - ENDOCRINE/METABOLIC Hx Endocrine Disorders: Yes (DMII) - HEMATOLOGICAL/ONCOLOGICAL Hx Blood Disorders: Yes (Chronic Anemia (history of iron transfusions)) - INTEGUMENTARY Hx Dermatological Problems: No - MUSCULOSKELETAL/RHEUMATOLOGICAL Hx Musculoskeletal Disorders: Yes Hx Arthritis: Yes Hx Falls: Yes Hx Osteoporosis: Yes - GASTROINTESTINAL Hx Gastrointestinal Disorders: Yes Hx Gastroesophageal Reflux: Yes Other/Comment: attempted lap band - GENITOURINARY/GYNECOLOGICAL Hx Genitourinary Disorders: No - PSYCHIATRIC Hx Anxiety: Yes Hx Depression: Yes Hx Substance Use: No - SURGICAL HISTORY Hx Surgeries: Yes Hx Coronary Stent: Yes (3x) Hx Tonsillectomy: Yes - ANESTHESIA Hx Anesthesia: Yes Hx Anesthesia Reactions: Yes (BREATHING, VOMITTING) Hx Malignant Hyperthermia: No Meds Allergies/Adverse Reactions: Allergies Allergy/AdvReac Type Severity Reaction Status Date / Time ciprofloxacin Allergy NAUSEA Verified 02/17/17 09:09 codeine Allergy FATIGUE Verified 02/17/17 09:09 kiwi Allergy RASH Verified 02/17/17 09:09 mustard Allergy RASH Verified 02/17/17 09:09 Penicillins Allergy ANAPHYLAXIS Verified 02/17/17 09:09 pepper Allergy RASH Verified 02/17/17 09:09 Sulfa (Sulfonamide Allergy RASH Verified 02/17/17 09:09 Antibiotics) tomato Allergy RASH Verified 02/17/17 09:09 amlodipine [From Norvas] AdvReac RASH Verified 02/17/17 09:09 metoclopramide HCl AdvReac DIZZINESS Verified 02/17/17 09:09 [From Reglan] filberts Allergy SWELLING Uncoded 01/05/17 10:01 - Medications Medications: Current Medications Acetaminophen (Tylenol 325mg Tab) 650 mg PO Q6H PRN PRN Reason: Pain, Mild (1-3) Acetaminophen (Tylenol 325mg Tab) 975 mg PO HS [facility] Last Admin: 04/09/17 22:50 Dose: 975 mg Albuterol (Ventolin Hfa 90 Mcg/Actuation (8 G)) 2 puff INH RQ6 PRN PRN Reason: Shortness of Breath Allopurinol (Zyloprim) 300 mg PO DAILY [facility] Alprazolam (Xanax) 0.25 mg PO HS PRN PRN Reason: Anxiety Stop: 04/16/17 18:01 Last Admin: 04/10/17 00:15 Dose: 0.25 mg Atorvastatin Calcium (Lipitor) 20 mg PO HS [facility] Last Admin: 04/09/17 22:49 Dose: 20 mg Clonidine HCl (Catapres) 0.2 mg PO BID [facility] Clopidogrel Bisulfate (Plavix) 75 mg PO DAILY [facility] Diphenhydramine HCl (Benadryl) 25 mg PO HS PRN PRN Reason: Sleep Dipyridamole/Aspirin (Aggrenox 25-200 Mg) 1 ea PO HS [facility] Last Admin: 04/09/17 22:49 Dose: 1 ea Ergocalciferol (Drisdol 50,000 Intl Units Cap) 1 cap PO TH [facility] Famotidine (Pepcid) 20 mg PO DAILY [facility] Famotidine (Pepcid) 40 mg PO HS [facility] Last Admin: 04/09/17 22:49 Dose: 40 mg Fluticasone Propionate (Flonase) 1 spr GOPI DAILY PRN PRN Reason: Allergy symptoms Furosemide (Lasix) 40 mg PO BID [facility] Home Med (Ranolazine [Ranexa]) 500 mg PO BID [facility] Home Med (Vilazodone Hcl [Viibryd]) 20 mg PO DAILY [facility] Insulin Detemir (Levemir) 20 units SC QAM [facility] Insulin Detemir (Levemir) 30 units SC QPM [facility] Last Admin: 04/09/17 22:53 Dose: 30 units Insulin Human Lispro (Humalog) 0 units SC ACHS [facility] PRN Reason: Protocol Last Admin: 04/10/17 06:56 Dose: Not Given Levothyroxine Sodium (Synthroid) 200 mcg PO DAILY@0630 [facility] Last Admin: 04/10/17 06:55 Dose: 200 mcg Lisinopril (Zestril) 5 mg PO BID [facility] Loratadine (Claritin) 10 mg PO HS [facility] Last Admin: 04/09/17 22:49 Dose: 10 mg Metoprolol Succinate (Toprol Xl) 100 mg PO DAILY [facility] Montelukast Sodium (Singulair) 10 mg PO HS [facility] Last Admin: 04/09/17 22:49 Dose: 10 mg Nystatin (Nystop Topical Powder) 1 applic TOP BID [facility] Potassium Chloride (K-Dur 20 Meq Er Tab) 40 meq PO BID [facility] Physical Exam - Additional Findings Additional findings: Physical therapy;Alert well oriented in no acute distress neck; Supple, no adenopathy Chest; Clear, no rales or rhonchi Heart; RSR, no murmur Abd; Soft, obese, no mass, no h/s mehgaly Results - Vital Signs Recent Vital Signs: Last Vital Signs Temp 98.2 F 04/10/17 07:40 Pulse 79 04/10/17 07:40 Resp 20 04/10/17 07:40 BP 170/84 H 04/10/17 07:40 Pulse Ox 99 04/10/17 07:40 - Labs Result Diagrams: 04/09/17 12:54 04/09/17 12:54 Labs: Laboratory Results - last 24 hr 04/09/17 04/09/17 04/09/17 12:54 12:54 12:54 WBC 3.0 L RBC 2.96 L Hgb 7.7 L Hct 24.4 L MCV 82.3 D MCH 25.9 L MCHC 31.5 L RDW 19.1 H Plt Count 122 L MPV 7.7 Neut % (Auto) 63.0 Lymph % (Auto) 27.7 Banks % (Auto) 5.3 Eos % (Auto) 1.9 Baso % (Auto) 2.1 H Neut # 1.9 Lymph # 0.8 L Banks # 0.2 Eos # 0.1 Baso # 0.1 D-Dimer, Quantitative 457 H Sodium 141 Potassium 4.0 Chloride 104 Carbon Dioxide 29 Anion Gap 12 BUN 17 Creatinine 1.0 Est GFR ( Amer) > 60 Est GFR (Non-Af Amer) 60 POC Glucose (mg/dL) Random Glucose 203 H Calcium 8.7 Total Bilirubin 0.5 AST 44 H D ALT 41 Alkaline Phosphatase 71 Troponin I 0.0170 Total Protein 7.1 Albumin 3.6 Globulin 3.6 Albumin/Globulin Ratio 1.0 Lipase Blood Type Antibody Screen Crossmatch BBK History Checked 04/09/17 04/09/17 04/09/17 16:10 17:20 19:15 WBC RBC Hgb Hct MCV MCH MCHC RDW Plt Count MPV Neut % (Auto) Lymph % (Auto) Banks % (Auto) Eos % (Auto) Baso % (Auto) Neut # Lymph # Banks # Eos # Baso # D-Dimer, Quantitative Sodium Potassium Chloride Carbon Dioxide Anion Gap BUN Creatinine Est GFR ( Amer) Est GFR (Non-Af Amer) POC Glucose (mg/dL) 292 H Random Glucose Calcium Total Bilirubin AST ALT Alkaline Phosphatase Troponin I Total Protein Albumin Globulin Albumin/Globulin Ratio Lipase 82 Blood Type A POSITIVE Antibody Screen Negative Crossmatch See Detail BBK History Checked Patient has bt 04/09/17 04/10/17 20:52 05:17 WBC RBC Hgb Hct MCV MCH MCHC RDW Plt Count MPV Neut % (Auto) Lymph % (Auto) Banks % (Auto) Eos % (Auto) Baso % (Auto) Neut # Lymph # Banks # Eos # Baso # D-Dimer, Quantitative Sodium Potassium Chloride Carbon Dioxide Anion Gap BUN Creatinine Est GFR ( Amer) Est GFR (Non-Af Amer) POC Glucose (mg/dL) 315 H 124 H Random Glucose Calcium Total Bilirubin AST ALT Alkaline Phosphatase Troponin I Total Protein Albumin Globulin Albumin/Globulin Ratio Lipase Blood Type Antibody Screen Crossmatch BBK History Checked Assessment & Plan - Assessment and Plan (Free Text) Assessment: Impression; Anemia secondary to chronic disease. Plan: Plan; Will have her come to infusion center for procrit on wednesday - Date & Time Date: 04/10/17 Time: 10:13
[2017-04-10 12:36] VITALS: PULSE 72; TEMP 98.9; O2SAT 97
[2017-04-10 14:58] LABS: HEMATOCRIT 27.5 % (34.0-47.0); MEAN CELL VOLUME 84.8 fl (81.0-99.0); MEAN CORPUSCULAR HGB CONC 31.8 g/dL (33.0-37.0); RED CELL DISTRIBUTION WIDTH 18.5 % (11.5-14.5)
[2017-04-10 15:00] LABS: WHITE BLOOD COUNT 4.9 K/uL (4.8-10.8)
[2017-04-10 15:06] LABS: CALCIUM 8.3 mg/dL (8.4-10.2); POTASSIUM 3.8 MMOL/L (3.6-5.0)
--- NOTE | 2017-04-10 15:26 | CP.PCM.DIS ---
Provider - Provider Date of Admission: 04/09/17 17:12 Attending physician: Shae Botello MD Primary care physician: Dr Dumont Consults: Hematology: Dr Gordon Vann Time Spent in preparation of Discharge (in minutes): 40 Diagnosis - Discharge Diagnosis (1) Symptomatic anemia Status: Acute (2) Chest pain Status: Acute (3) DM2 (diabetes mellitus, type 2) Status: Chronic (4) HTN (hypertension) Status: Chronic (5) Hypothyroid Status: Chronic Hospital Course - Lab Results Lab Results: Most Recent Lab Values WBC 4.9 K/uL (4.8-10.8) D 04/10/17 14:46 RBC 3.25 Mil/uL (3.80-5.20) L 04/10/17 14:46 Hgb 8.8 g/dL (12.0-16.0) L 04/10/17 14:46 Hct 27.5 % (34.0-47.0) L 04/10/17 14:46 MCV 84.8 fl (81.0-99.0) D 04/10/17 14:46 MCH 27.0 pg (27.0-31.0) 04/10/17 14:46 MCHC 31.8 g/dL (33.0-37.0) L 04/10/17 14:46 RDW 18.5 % (11.5-14.5) H 04/10/17 14:46 Plt Count 125 K/uL (130-400) L 04/10/17 14:46 MPV 7.7 fl (7.2-11.7) 04/09/17 12:54 Neut % (Auto) 63.0 % (50.0-75.0) 04/09/17 12:54 Lymph % (Auto) 27.7 % (20.0-40.0) 04/09/17 12:54 Woodruff % (Auto) 5.3 % (0.0-10.0) 04/09/17 12:54 Eos % (Auto) 1.9 % (0.0-4.0) 04/09/17 12:54 Baso % (Auto) 2.1 % (0.0-2.0) H 04/09/17 12:54 Neut # 1.9 K/uL (1.8-7.0) 04/09/17 12:54 Lymph # 0.8 K/uL (1.0-4.3) L 04/09/17 12:54 Woodruff # 0.2 K/uL (0.0-0.8) 04/09/17 12:54 Eos # 0.1 K/uL (0.0-0.7) 04/09/17 12:54 Baso # 0.1 K/uL (0.0-0.2) 04/09/17 12:54 Retic Count 3.8 % (0.5-1.5) H D 04/10/17 10:30 D-Dimer, Quantitative 457 ng/mlDDU (0-230) H 04/09/17 12:54 Sodium 139 mmol/l (132-148) 04/10/17 14:46 Potassium 3.8 MMOL/L (3.6-5.0) 04/10/17 14:46 Chloride 100 mmol/L (98-107) 04/10/17 14:46 Carbon Dioxide 29 mmol/L (22-30) 04/10/17 14:46 Anion Gap 14 (10-20) 04/10/17 14:46 BUN 17 mg/dl (7-17) 04/10/17 14:46 Creatinine 1.2 mg/dl (0.7-1.2) 04/10/17 14:46 Est GFR ( Amer) 59 04/10/17 14:46 Est GFR (Non-Af Amer) 48 04/10/17 14:46 POC Glucose (mg/dL) 124 mg/dL (65-110) H 04/10/17 05:17 Random Glucose 229 mg/dL (65-105) H 04/10/17 14:46 Calcium 8.3 mg/dL (8.4-10.2) L 04/10/17 14:46 Ferritin 90.8 ng/Ml (6.24-137.0) 04/10/17 10:30 Total Bilirubin 0.5 mg/dl (0.2-1.3) 04/09/17 12:54 AST 44 U/L (14-36) H D 04/09/17 12:54 ALT 41 U/L (9-52) 04/09/17 12:54 Alkaline Phosphatase 71 U/L (38-126) 04/09/17 12:54 Troponin I 0.0170 ng/mL (0.00-0.120) 04/09/17 12:54 Total Protein 7.1 G/DL (6.3-8.2) 04/09/17 12:54 Albumin 3.6 g/dL (3.5-5.0) 04/09/17 12:54 Globulin 3.6 gm/dL (2.2-3.9) 04/09/17 12:54 Albumin/Globulin Ratio 1.0 (1.0-2.1) 04/09/17 12:54 Lipase 82 U/L (23-300) 04/09/17 16:10 Vitamin B12 1000 pg/mL (239-931) H 04/10/17 10:30 Blood Type A POSITIVE 04/09/17 17:20 Antibody Screen Negative 04/09/17 17:20 Crossmatch See Detail 04/09/17 17:20 BBK History Checked Patient has bt 04/09/17 17:20 - Hospital Course Hospital Course: This is a 47 y/o female with multiple chronic medical conditions including CAD and anemia of chronic disease came in bec of chest tightness, found to have Hgb= 7.7. 1) Chest Tightness likely sec to Anemia - observed in Tele - no EKG change, Trop neg -Continue home medications -- Plavix, Toprol, statin -CTA of chest : neg PE - Pt had Myocardial Stress test a few mos ago : normal (2) Anemia of Chronic Dis hx of Multiple transfusions Dr Gordon vann consulted transfused 2 units pRBC accdg to pt , had BM biopsy done by Dr Gordon Vann - w/c was negative EGD and Colonoscopy : neg ( done by Dr Cox) Pt to come for Procrit injections at the Infusion unit - start Wednesday (3) DM2 (diabetes mellitus, type 2) Status: Acont Levemir ff up with dr Subramanian (4) HTN (hypertension) Status: Acute cont Toprol, Lisionopril , Clonidine (5) Hypothyroid Status: Acute cont Levothyroxine (6) Obstructive sleep apnea (adult) Status: Chronic Priority: High ff up with Dr Dumont Discharge Exam - Head Exam Head Exam: ATRAUMATIC, NORMAL INSPECTION, NORMOCEPHALIC - Eye Exam Eye Exam: EOMI Pupil Exam: NORMAL ACCOMODATION - ENT Exam ENT Exam: Mucous Membranes Moist, Normal External Ear Exam - Neck Exam Neck exam: Full Rom - Respiratory Exam Respiratory Exam: NORMAL BREATHING PATTERN. absent: Respiratory Distress - Cardiovascular Exam Cardiovascular Exam: REGULAR RHYTHM, +S1, +S2 - GI/Abdominal Exam GI & Abdominal Exam: Normal Bowel Sounds, Soft. absent: Tenderness - Extremities Exam Extremities exam: normal capillary refill, pedal pulses present - Back Exam Back exam: absent: CVA tenderness (L), CVA tenderness (R), FULL ROM - Neurological Exam Neurological exam: Alert, CN II-XII Intact, Oriented x3, Reflexes Normal - Psychiatric Exam Psychiatric exam: Normal Affect, Normal Mood - Skin Skin Exam: Dry, Pallor, Warm Discharge Plan - Follow Up Plan Condition: GOOD Disposition: HOME/ ROUTINE Additional Instructions: ff with Dr Gordon Vann . Keep appt for Procrit injections beginning Wednesday ff up with Dr Tim villanueva. ff up with dr Adriana Vann ff up with Dr Cox re: peripancreatic reaction seen on CT Hold Metformin x 3days - pt had IV contrast for CTA
--- NOTE | 2017-04-10 15:26 | CARD ---
APPROVED REPORT EKG Measurement Heart [id number] <Conclusion> Sinus rhythm with 1st degree AV block Left bundle branch block Abnormal ECG
[2017-04-10 15:44] VITALS: BP 135/76
[2017-04-15] MEDS ORDERED: Ergocalciferol 50,000 Intl Units Cap PO SCH (18:00)
== END 2017-04-10 16:55 | disposition home or self-care (01) ==
LOC: H.ER 11:47 → H.ERHOLD 17:12 → H.TEL 20:33
PROVIDERS: ADMIT Internal Medicine; ATTEND Internal Medicine
DX: E61.1 Iron deficiency (principal); D63.8 Anemia in other chronic diseases classified elsewhere; I11.0 Hypertensive heart disease with heart failure; E11.9 Type 2 diabetes mellitus without complications; E03.9 Hypothyroidism, unspecified; J44.9 Chronic obstructive pulmonary disease, unspecified; E78.00 Pure hypercholesterolemia, unspecified; E78.5 Hyperlipidemia, unspecified; G47.33 Obstructive sleep apnea (adult) (pediatric); H54.61 Unqualified visual loss, right eye, normal vision left eye; I24.8 Other forms of acute ischemic heart disease; I25.10 Atherosclerotic heart disease of native coronary artery without angina pectoris; I50.9 Heart failure, unspecified; K21.9 Gastro-esophageal reflux disease without esophagitis; M81.0 Age-related osteoporosis without current pathological fracture; Z91.81 History of falling; Z79.02 Long term (current) use of antithrombotics/antiplatelets; Z79.4 Long term (current) use of insulin; Z79.899 Other long term (current) drug therapy; Z85.840 Personal history of malignant neoplasm of eye; Z86.711 Personal history of pulmonary embolism; Z86.73 Personal history of transient ischemic attack (TIA), and cerebral infarction without residual deficits; Z95.5 Presence of coronary angioplasty implant and graft; F32.9 Major depressive disorder, single episode, unspecified; F41.9 Anxiety disorder, unspecified; J40 Bronchitis, not specified as acute or chronic; M19.90 Unspecified osteoarthritis, unspecified site; Z79.84 Long term (current) use of oral hypoglycemic drugs; M54.2 Cervicalgia
CPT/HCPCS: 36415; 36430; 71020; 71275; 80048; 80053; 81025; 82607; 82728; 82948; 83690; 84484; 85025; 85027; 85044; 85378; 86850; 86900; 86920; 93005; 99285; G0378; J1940; P9051; Q9967

== ENCOUNTER 2017-08-03 15:41 | Observation (INO) | payer OTHER, MEDICARE ==
[2017-08-03 15:42] VITALS: BMI 52.9
--- NOTE | 2017-08-03 16:40 | ED PDOC ---
Syncope/Near Syncope/Dizziness Time Seen by Provider: 08/03/17 16:03 Chief Complaint (Nursing): Dizziness/Lightheaded Chief Complaint (Provider): Syncope History Per: Patient History/Exam Limitations: no limitations Onset/Duration Of Symptoms: Hrs (x 14) Current Symptoms Are (Timing): Still Present Associated Symptoms Preceding Syncopal Episode: Lightheadedness, Worse With Standing, Vertigo Fall Associated With With Symptoms: Yes, Positive Injury (left elbow injury. ) Additional Complaint(s): 47 year old female presents to the ED complaining of syncope status post fall associated with severe pain to the left elbow, lightheadedness and dizziness, onset 14 hours ago. Patient reports she woke up to go to the bathroom where she felt dizzy and then found herself on the ground. Patient states she doesn't remember what happened but believes she hit her left side to a TV stand and now feels severe pain to her left elbow. Patient reports she might of also hit her head to the bottom of the TV stand. Patient states she continues to feel dizzy and lightheaded when lying down and presents with a headache. Dizziness worsens when she gets up. Patient reports she has had similar episodes in the past and follows up with neurologist, Dr. Hoyt. Patient has applied wound with acie and pain worsens when she bends her elbow. Denies focal weakness and spinning. PMD: Dr. Nic Dumont Past Medical History Reviewed: Historical Data, Nursing Documentation, Vital Signs Vital Signs: Last Vital Signs Temp 97.7 F 08/03/17 15:48 Pulse 66 08/03/17 15:48 Resp 16 08/03/17 15:48 BP 149/79 08/03/17 15:48 Pulse Ox 100 08/03/17 15:48 - Medical History PMH: Anemia, Anxiety, Arthritis, Asthma, Bronchitis, CAD, CHF, Depression, Diabetes, Deep Vein Thrombosis, GERD, HTN, Hypercholesterolemia, Hypothyroidism , Osteoporosis, Peripheral Edema, Pulmonary Embolism, Sleep Apnea (use c-pap), TIA Denies: HIV, Chronic Kidney Disease - Surgical History Surgical History: Coronary Stent (3x), Endoscopy, Tonsillectomy - Family History Family History: States: Unknown Family Hx - Immunization History Hx Tetanus Toxoid Vaccination: No Hx Influenza Vaccination: Yes Hx Pneumococcal Vaccination: No - Home Medications Home Medications: Ambulatory Orders Medication Instructions Recorded Ranolazine [Ranexa] 500 mg PO BID #0 ter 09/18/14 Levothyroxine [Synthroid] 200 mcg PO DAILY 12/19/14 Potassium Chloride [K-Dur 20 mEq 40 meq PO BID 12/19/14 ER Tab] Montelukast [Singulair] 10 mg PO HS 02/07/16 Clopidogrel [Plavix] 75 mg PO DAILY #0 tab 02/21/16 Vilazodone HCl [Viibryd] 20 mg PO DAILY 04/28/16 cloNIDine [Catapres] 0.2 mg PO BID 04/28/16 ALPRAZolam [Xanax] 0.25 mg PO HS PRN 08/19/16 DiphenhydrAMINE [Benadryl] 25 mg PO HS PRN 08/19/16 Ergocalciferol (Vitamin D2) 50,000 unit PO TH 08/19/16 [Vitamin D2] Furosemide [Lasix] 40 mg PO BID 08/19/16 Levocetirizine Dihydrochloride 5 mg PO HS 08/19/16 [Xyzal] Mometasone Furoate [Nasonex] 1 spray GOPI DAILY PRN 08/19/16 Rosuvastatin Calcium [Crestor] 10 mg PO HS 08/19/16 metFORMIN [glucOPHAGE] 500 mg PO BID 08/19/16 Levalbuterol Tartrate [Xopenex Hfa] 2 puff IH Q6H PRN 02/17/17 Metoprolol Succinate [Toprol XL] 100 mg PO DAILY 02/22/17 Insulin Aspart, Recombinant 15 - 30 unit SC ACTID 03/08/17 [Novolog] Insulin Detemir [Levemir] 20 units SC QAM 03/08/17 Insulin Detemir [Levemir] 40 units SC BID 03/08/17 Lisinopril [Zestril] 5 mg PO BID 03/08/17 Nystatin [Nyamyc] 1 appl TOP TID 04/09/17 Acetaminophen [Tylenol 325mg tab] 975 mg PO HS tab 04/10/17 Ferrous Sulfate [Ferosul] 220 mg PO DAILY 07/05/17 Pantoprazole [Protonix] 40 mg PO DAILY 07/05/17 - Allergies Allergies/Adverse Reactions: Allergies Allergy/AdvReac Type Severity Reaction Status Date / Time ciprofloxacin Allergy NAUSEA Verified 07/05/17 10:14 codeine Allergy FATIGUE Verified 07/05/17 10:14 Iodinated Contrast- Oral and Allergy RASH Verified 07/05/17 10:14 IV Dye kiwi Allergy RASH Verified 07/05/17 10:14 mustard Allergy RASH Verified 07/05/17 10:14 Penicillins Allergy ANAPHYLAXIS Verified 07/05/17 10:14 pepper (genus Capsicum) Allergy RASH Verified 07/05/17 10:14 [pepper] Sulfa (Sulfonamide Allergy RASH Verified 07/05/17 10:14 Antibiotics) tomato Allergy RASH Verified 07/05/17 10:14 amlodipine [From Norvasc] AdvReac RASH Verified 07/05/17 10:14 metoclopramide HCl AdvReac DIZZINESS Verified 07/05/17 10:14 [From Reglan] filberts Allergy SWELLING Uncoded 07/05/17 10:14 Review of Systems ROS Statement: Except As Marked, All Systems Reviewed And Found Negative Musculoskeletal: Positive for: Other (severe left elbow pain) Neurological: Positive for: Headache, Dizziness (worsens when getting up ), Other (lightheadedness even when lying down) Physical Exam - Physical Exam Appears: Positive for: Non-toxic, In Acute Distress (mild, painful) Head Exam: Positive for: ATRAUMATIC, NORMOCEPHALIC Skin: Positive for: Warm, Dry Eye Exam: Positive for: Other (RIGHT eye: prosthesis covered by bandage. LEFT eye: EOMI, pupil reactive) ENT: Negative for: Pharyngeal Erythema, Tonsillar Exudate Neck: Positive for: Painless ROM, Supple Cardiovascular/Chest: Positive for: Regular Rate, Rhythm. Negative for: Murmur Respiratory: Positive for: Normal Breath Sounds. Negative for: Wheezing Gastrointestinal/Abdominal: Positive for: Soft. Negative for: Tenderness Back: Positive for: Normal Inspection. Negative for: Decreased ROM Extremity: Positive for: Normal ROM, Tenderness (tenderness to palpation at site of left elbow), Swelling (to olecranon of left elbow), Other (abrasion to left olecranon). Negative for: Deformity Lymphatic: Negative for: Adenopathy Neurologic/Psych: Positive for: Alert, Oriented (x3). Negative for: Motor/ Sensory Deficits - Laboratory Results Result Diagrams: 08/03/17 16:59 08/03/17 17:15 - ECG O2 Sat by Pulse Oximetry: 100 (RA) Pulse Ox Interpretation: Normal Medical Decision Making Medical Decision Making: Time: 1619 Initial Impression: Syncope and Left Elbow Pain Differentials include Electrolyte Abnormalities, Dehydration, Elbow Fracture, Anemia, and Arrhythmia Plan: -- EKG -- Head w/o Contrast -- Chest Portable XR -- Tank Crewmember -- IV Insertion -- Glucose, Blood, POC STAT -- Ortho BP Time: 165 Plan: -- Urinalysis -- Urine Culture -- CBC with differentials -- PTT -- Prothombin Time -- ED Urine -- ED Urine Dipstick -- Drug Screen -- Type and Screen Time: 171 Plan: -- CMP -- Magnesium -- Phosphorus -- Troponin -- Glucose, POC Routine Time: 175 Plan: -- Elbow Left 3 Views RAD Time: 173 Chest X-Ray FINDINGS: LUNGS: No active pulmonary disease. PLEURA: No significant pleural effusion identified, no pneumothorax apparent. CARDIOVASCULAR: No radiographic findings to suggest acute or significant cardiovascular disease. OSSEOUS STRUCTURES: No significant abnormalities. VISUALIZED UPPER ABDOMEN: Normal. OTHER FINDINGS: None. IMPRESSION: No active disease. No significant interval change compared to the prior examination(s). Time: [address] w/o Contrast FINDINGS: HEMORRHAGE: No intracranial hemorrhage. BRAIN: No mass effect or edema. No atrophy or chronic microvascular ischemic changes. VENTRICLES: Unremarkable. No hydrocephalus. CALVARIUM: Unremarkable. PARANASAL SINUSES: Unremarkable as visualized. No significant inflammatory changes. MASTOID AIR CELLS: Unremarkable as visualized. No inflammatory changes. OTHER FINDINGS: Stable appearance of right globe/prosthesis. IMPRESSION: No acute intracranial abnormalities. No significant findings to account for the clinical presentation. No significant interval change compared to the prior examination(s). DW pt findings and plan of care. Pt for hospitalization for syncope and intractable dizziness. Scribe Attestation: Documented by Jayla Viramontes, acting as a scribe for Dr. Pau Styles. Provider Scribe Attestation: All medical record entries made by the Scribe were at my direction and personally dictated by me. I have reviewed the chart and agree that the record accurately reflects my personal performance of the history, physical exam, medical decision making, and the department course for this patient. I have also personally directed, reviewed, and agree with the discharge instructions and disposition. Disposition - Clinical Impression Clinical Impression: Dizziness, Syncope and collapse Discussed With Dr.: Cameron Abraham Doctor Will See Patient In The: Hospital (covering for PMD Dr Dumont) Counseled Patient/Family Regarding: Studies Performed - Disposition Disposition Time: 18:30 Condition: FAIR - Pt Status Changed To: Hospital Disposition Of: Observation - POA Present On Arrival: Falls Or Trauma
[2017-08-03 17:06] LABS: BASO % 0.4 % (0.0-2.0); EOS # 0.1 K/uL (0.0-0.7); EOS % 2.5 % (0.0-4.0); LYMPH # 0.8 K/uL (1.0-4.3); LYMPH % 27.8 % (20.0-40.0); MEAN CELL VOLUME 78.8 fl (81.0-99.0); MEAN CORPUSCULAR HEMOGLOBIN 25.3 pg (27.0-31.0); MEAN CORPUSCULAR HGB CONC 32.1 g/dL (33.0-37.0); MEAN PLATELET VOLUME 8.4 fl (7.2-11.7); MONO # 0.2 K/uL (0.0-0.8); MONO % 5.8 % (0.0-10.0); NEUT # 1.9 K/uL (1.8-7.0); NEUT % 63.5 % (50.0-75.0); NRBC % 0.2 % (0.0-0.0); RBC 4.33 Mil/uL (3.80-5.20); RED CELL DISTRIBUTION WIDTH 22.8 % (11.5-14.5)
[2017-08-03 17:27] LABS: INR 1.2 (0.9-1.2); PARTIAL THROMBOPLASTIN TIME 40.9 Seconds (25.6-37.1); PROTHROMBIN TIME 13.3 Seconds (9.8-13.1)
[2017-08-03 17:33] LABS: SQUAMOUS EPITHIAL < 1 /hpf (0-5); URINE BILIRUBIN NEGATIVE (NEGATIVE); URINE BLOOD NEGATIVE (NEGATIVE); URINE CLARITY SLIGHTY-CLOUDY (Clear); URINE COLOR YELLOW (YELLOW); URINE GLUCOSE (UA) NEG (Normal); URINE LEUKOCYTE ESTERASE TRACE Leu/uL (Negative); URINE PROTEIN NEGATIVE (NEGATIVE); URINE UROBILINOGEN 0.2-1.0 mg/dL (0.2-1.0)
[2017-08-03 17:37] LABS: BARBITURATES, UR NEGATIVE (NEGATIVE); BENZODIAZEPINES, UR NEGATIVE (NEGATIVE); OPIATES, UR NEGATIVE (NEGATIVE); PHENCYCLIDINE, UR NEGATIVE (NEGATIVE)
--- NOTE | 2017-08-03 17:40 | RAD ---
HISTORY: syncope COMPARISON: 04/09/2017 FINDINGS: LUNGS: No active pulmonary disease. PLEURA: No significant pleural effusion identified, no pneumothorax apparent. CARDIOVASCULAR: No radiographic findings to suggest acute or significant cardiovascular disease. OSSEOUS STRUCTURES: No significant abnormalities. VISUALIZED UPPER ABDOMEN: Normal. OTHER FINDINGS: None. IMPRESSION: No active disease. No significant interval change compared to the prior examination(s).
[2017-08-03 17:51] LABS: ALB/GLOB RATIO 0.9 (1.0-2.1); ALBUMIN 3.5 g/dL (3.5-5.0); ALT/SGPT 37 U/L (9-52); AST/SGOT 56 U/L (14-36); BLOOD UREA NITROGEN 12 mg/dl (7-17); CALCIUM 9.1 mg/dL (8.4-10.2); GFR AFRICAN-AMERICAN > 60; GFR NON-AFRICAN AMERICAN 60
--- NOTE | 2017-08-03 18:31 | CT ---
PROCEDURE: CT HEAD WITHOUT CONTRAST. HISTORY: syncope head injury COMPARISON: 01/16/2015, 02/17/2017. TECHNIQUE: Axial computed tomography images were obtained through the head/brain without intravenous contrast. Coronal and sagittal reconstructed images. Radiation dose: Total exam DLP = 790.14 mGy-cm. This CT exam was performed using one or more of the following dose reduction techniques: Automated exposure control, adjustment of the mA and/or kV according to patient size, and/or use of iterative reconstruction technique. FINDINGS: HEMORRHAGE: No intracranial hemorrhage. BRAIN: No mass effect or edema. No atrophy or chronic microvascular ischemic changes. VENTRICLES: Unremarkable. No hydrocephalus. CALVARIUM: Unremarkable. PARANASAL SINUSES: Unremarkable as visualized. No significant inflammatory changes. MASTOID AIR CELLS: Unremarkable as visualized. No inflammatory changes. OTHER FINDINGS: Stable appearance of right globe/prosthesis. IMPRESSION: No acute intracranial abnormalities. No significant findings to account for the clinical presentation. No significant interval change compared to the prior examination(s).
--- NOTE | 2017-08-03 19:42 | CP.PCM.HP ---
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 She now comes with a non witnessed syncopal episode at her home while going to the bathroom,14 hrs prior to her arrival to the ED. She only became aware that she fell with loss of Consciousness, after she found herself on the floor with pains to her left elbow and left side of the body. She suffers from lightheadedness which is worse on standing, but there is no warning of the syncopal episodes. she is being followed by Neurologist Dr Hoyt. 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 absent: Anorexia, Chills, Fever, Lethargy - EENT Eyes: Requires Corrective Lenses. absent: Floaters, Itchy Eyes, Photophobia Ears: absent: Decreased Hearing, Ear Discharge, Ear Pain, Tinnitus Nose/Mouth/Throat: absent: Epistaxis, Nasal Congestion, Nasal Discharge, Dental Pain, Dry Mouth Additional comments: Right eye prosthesis - Cardiovascular Cardiovascular: Dyspnea. absent: Chest Pain, Leg Edema - Respiratory Respiratory: Cough, Wheezing. absent: Dyspnea, Stridor - Gastrointestinal Gastrointestinal: Abdominal Pain, Nausea, Vomiting - Genitourinary Genitourinary: absent: Dysuria, Flank Pain, Hematuria, Urinary Frequency - Musculoskeletal Musculoskeletal: Arthralgias. absent: Back Pain - Integumentary Integumentary: Swelling. absent: Pruritus, Rash, Skin Ulcer, Sores, Striae - Neurological Neurological: Dizziness, Headaches, Paresthesias. absent: Confusion, Numbness, Focal Weakness, Weakness - Psychiatric Psychiatric: Anxiety, Depression. absent: Panic Attacks - Endocrine Endocrine: absent: Palpitations, Polydipsia, Polyphagia, Polyuria - Hematologic/Lymphatic Hematologic: absent: Easy Bleeding, Easy Bruising Past Patient History - Infectious Disease Hx of Infectious Diseases: None - Past Medical History & Family History Past Medical History?: Yes - Past Social History Smoking Status: Never Smoked Chewing Tobacco Use: No Cigar Use: No Alcohol: None Drugs: Denies - CARDIAC Hx Congestive Heart Failure: Yes Hx Hypercholesterolemia: Yes Hx Hypertension: Yes Hx Peripheral Edema: Yes - PULMONARY Hx Asthma: Yes Hx Bronchitis: Yes Hx Pulmonary Embolism: Yes Hx Sleep Apnea: Yes (use c-pap) - NEUROLOGICAL Hx Transient Ischemic Attacks (TIA): Yes - HEENT Hx HEENT Problems: Yes (Blind Right eye) - RENAL Hx Chronic Kidney Disease: No - ENDOCRINE/METABOLIC Hx Hypothyroidism: Yes - HEMATOLOGICAL/ONCOLOGICAL Hx Anemia: Yes Hx Human Immunodeficiency Virus (HIV): No - INTEGUMENTARY Hx Dermatological Problems: No - MUSCULOSKELETAL/RHEUMATOLOGICAL Hx Arthritis: Yes Hx Osteoporosis: Yes - GASTROINTESTINAL Hx Gastrointestinal Disorders: Yes Hx Gastroesophageal Reflux: Yes Other/Comment: attempted lap band - GENITOURINARY/GYNECOLOGICAL Hx Genitourinary Disorders: No - PSYCHIATRIC Hx Anxiety: Yes Hx Depression: Yes - SURGICAL HISTORY Hx Coronary Stent: Yes (3x) Hx Tonsillectomy: Yes - ANESTHESIA Hx Anesthesia: Yes Hx Anesthesia Reactions: Yes (BREATHING, VOMITTING) Hx Malignant Hyperthermia: No Meds Allergies/Adverse Reactions: Allergies Allergy/AdvReac Type Severity Reaction Status Date / Time ciprofloxacin Allergy NAUSEA Verified 07/05/17 10:14 codeine Allergy FATIGUE Verified 07/05/17 10:14 Iodinated Contrast- Oral and Allergy RASH Verified 07/05/17 10:14 IV Dye kiwi Allergy RASH Verified 07/05/17 10:14 mustard Allergy RASH Verified 07/05/17 10:14 Penicillins Allergy ANAPHYLAXIS Verified 07/05/17 10:14 pepper (genus Capsicum) Allergy RASH Verified 07/05/17 10:14 [pepper] Sulfa (Sulfonamide Allergy RASH Verified 07/05/17 10:14 Antibiotics) tomato Allergy RASH Verified 07/05/17 10:14 amlodipine [From Norvasc] AdvReac RASH Verified 07/05/17 10:14 metoclopramide HCl AdvReac DIZZINESS Verified 07/05/17 10:14 [From Reglan] filberts Allergy SWELLING Uncoded 07/05/17 10:14 Physical Exam - Constitutional Appears: No Acute Distress - Head Exam Head Exam: ATRAUMATIC, NORMAL INSPECTION, NORMOCEPHALIC - Eye Exam Eye Exam: EOMI, Normal appearance Pupil Exam: NORMAL ACCOMODATION, PERRL Additional comments: Right eye covered with patch - ENT Exam ENT Exam: Mucous Membranes Moist, Normal Exam, Normal External Ear Exam - Neck Exam Neck exam: Positive for: Full Rom, Normal Inspection. Negative for: Lymphadenopathy, Tenderness - Respiratory Exam Respiratory Exam: Clear to Auscultation Bilateral. absent: Rales, Rhonchi, Wheezes - Cardiovascular Exam Cardiovascular Exam: REGULAR RHYTHM, RRR, +S1, +S2. absent: Gallop, JVD - GI/Abdominal Exam Additional comments: Obese, Soft, nontender, distant bowel sounds, difficult to palpate because of size. - Rectal Exam Rectal Exam: Deferred - Extremities Exam Extremities exam: Positive for: full ROM, pedal edema. Negative for: calf tenderness Additional comments: Left lower extremity with 1+ pitting edema - Back Exam Back exam: NORMAL INSPECTION. absent: CVA tenderness (L), CVA tenderness (R) - Neurological Exam Neurological exam: Alert, CN II-XII Intact, Oriented x3, Reflexes Normal - Psychiatric Exam Psychiatric exam: Normal Affect, Normal Mood - Skin Skin Exam: Dry, Intact, Normal Color, Warm Results - Vital Signs Recent Vital Signs: Last Vital Signs Temp 97.7 F 08/03/17 15:48 Pulse 66 08/03/17 15:48 Resp 16 08/03/17 15:48 BP 149/79 08/03/17 15:48 Pulse Ox 100 08/03/17 19:23 - Labs Result Diagrams: 08/03/17 16:59 08/03/17 17:15 Labs: Laboratory Results - last 24 hr 08/03/17 08/03/17 08/03/17 16:59 16:59 16:59 WBC 3.0 L RBC 4.33 Hgb 11.0 L Hct 34.2 MCV 78.8 L MCH 25.3 L MCHC 32.1 L RDW 22.8 H Plt Count 116 L MPV 8.4 Neut % (Auto) 63.5 Lymph % (Auto) 27.8 [place] % (Auto) 5.8 Eos % (Auto) 2.5 Baso % (Auto) 0.4 Neut # (Auto) 1.9 Lymph # (Auto) 0.8 L [place] # (Auto) 0.2 Eos # (Auto) 0.1 Baso # (Auto) 0.0 PT 13.3 H INR 1.2 APTT 40.9 H Sodium Potassium Chloride Carbon Dioxide Anion Gap BUN Creatinine Est GFR ( Amer) Est GFR (Non-Af Amer) POC Glucose (mg/dL) Random Glucose Calcium Phosphorus Magnesium Total Bilirubin AST ALT Alkaline Phosphatase Troponin I Total Protein Albumin Globulin Albumin/Globulin Ratio Urine Color Urine Clarity Urine pH Ur Specific [place] Urine Protein Urine Glucose (UA) Urine Ketones Urine Blood Urine Nitrate Urine Bilirubin Urine Urobilinogen Ur Leukocyte Esterase Urine RBC (Auto) Urine Microscopic WBC Ur Squamous Epith Cells Hyaline Casts Urine Opiates Screen Urine Methadone Screen Ur Barbiturates Screen Ur Phencyclidine Scrn Ur Amphetamines Screen U Benzodiazepines Scrn U Oth Cocaine Metabols U Cannabinoids Screen Blood Type A POSITIVE Antibody Screen Negative BBK History Checked Patient has bt 08/03/17 08/03/17 08/03/17 16:59 16:59 17:00 WBC RBC Hgb Hct MCV MCH MCHC RDW Plt Count MPV Neut % (Auto) Lymph % (Auto) [place] % (Auto) Eos % (Auto) Baso % (Auto) Neut # (Auto) Lymph # (Auto) [place] # (Auto) Eos # (Auto) Baso # (Auto) PT INR APTT Sodium Potassium Chloride Carbon Dioxide Anion Gap BUN Creatinine Est GFR ( Amer) Est GFR (Non-Af Amer) POC Glucose (mg/dL) 194 H Random Glucose Calcium Phosphorus Magnesium Total Bilirubin AST ALT Alkaline Phosphatase Troponin I Total Protein Albumin Globulin Albumin/Globulin Ratio Urine Color Yellow Urine Clarity Slighty-cloudy Urine pH 6.0 Ur Specific [place] 1.015 Urine Protein Negative Urine Glucose (UA) Neg Urine Ketones Negative Urine Blood Negative Urine Nitrate Negative Urine Bilirubin Negative Urine Urobilinogen 0.2-1.0 Ur Leukocyte Esterase Trace Urine RBC (Auto) 1 Urine Microscopic WBC 7 H Ur Squamous Epith Cells < 1 Hyaline Casts 3-5 H Urine Opiates Screen Negative Urine Methadone Screen Negative Ur Barbiturates Screen Negative Ur Phencyclidine Scrn Negative Ur Amphetamines Screen Negative U Benzodiazepines Scrn Negative U Oth Cocaine Metabols Negative U Cannabinoids Screen Negative Blood Type Antibody Screen BBK History Checked 08/03/17 17:15 WBC RBC Hgb Hct MCV MCH MCHC RDW Plt Count MPV Neut % (Auto) Lymph % (Auto) [place] % (Auto) Eos % (Auto) Baso % (Auto) Neut # (Auto) Lymph # (Auto) [place] # (Auto) Eos # (Auto) Baso # (Auto) PT INR APTT Sodium 142 Potassium 3.4 L Chloride 102 Carbon Dioxide 25 Anion Gap 18 BUN 12 Creatinine 1.0 Est GFR ( Amer) > 60 Est GFR (Non-Af Amer) 60 POC Glucose (mg/dL) Random Glucose 223 H Calcium 9.1 Phosphorus 2.8 Magnesium 2.0 Total Bilirubin 0.5 AST 56 H D ALT 37 Alkaline Phosphatase 67 Troponin I < 0.0120 Total Protein 7.3 Albumin 3.5 Globulin 3.8 Albumin/Globulin Ratio 0.9 L Urine Color Urine Clarity Urine pH Ur Specific [place] Urine Protein Urine Glucose (UA) Urine Ketones Urine Blood Urine Nitrate Urine Bilirubin Urine Urobilinogen Ur Leukocyte Esterase Urine RBC (Auto) Urine Microscopic WBC Ur Squamous Epith Cells Hyaline Casts Urine Opiates Screen Urine Methadone Screen Ur Barbiturates Screen Ur Phencyclidine Scrn Ur Amphetamines Screen U Benzodiazepines Scrn U Oth Cocaine Metabols U Cannabinoids Screen Blood Type Antibody Screen BBK History Checked - Impressions Impression: Artifact Sinus rhythm 66/min - Imaging and Cardiology Chest x-ray Status: Image reviewed by me, Report reviewed by me Additional comment: No infiltrate CT scan - head Status: Image reviewed by me, Report reviewed by me Additional comment: No acute intracraneal abnormality Left Elbow X Ray Status: Image reviewed by me Additional comment: No fracture nor dislocation Assessment & Plan - Assessment and Plan (Free Text) Assessment: #. Syncope #. Left ElbowTrauma #. Hypokalemia #. DM II with hyperglycemia #. Pancytopenia #. HTN #. CAD #. 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 She now comes with a non witnessed syncopal episode at her home while going to the bathroom, she found herself on the floor with pains to her left elbow and left side of the body. She suffers from lightheadedness which is worse on standing, but there is no warning of the syncopal episodes. she is being followed by Neurologist Dr Hoyt. #. Syncope r/o Cardiac Arrhythmia, Orthostatic hypotension from the multiple antihypertensive medications and Diuretics, vasovagal, or neurogenic , autonomic from the DM. Seizure is also a possibility in this patient. - Consult Dr Hoyt Neurology - Telemetry monitoring - Neuro checks - EEG - Monitor blood pressure medication, maintain SBP above 120mmHg - Controll Diabetes Mellitus #. Left ElbowTrauma. no Fracture nor dislocation - Treat wit Tylenol #. Hypokalemia. Replete with KCL - Maintenance with KCL 40MG BID - follow Electrolytes #. DM II with hyperglycemia - Glucophage - Levemir - Lispro Sliding scale according to Accucheck ACHS -HbA1c #. Pancytopenia (Bone marrow 12/27/16 showed no Lymphoproliferative disorder) - Followed by Dr Gordon Vizcaino OP #. HTN - Lopressor/Lisinopril/Catapress #. CHF - Lasix/Lopressor #. CAD - Plavix/ Crestor/ #. ULICES - CPAP #. DVT prophylaxis with SCD and Lovenox #. Code Status: Full - Date & Time Date: 08/03/17 Time: 19:42
[2017-08-03] MEDS ORDERED: Bacitracin 500 Units/gm Oint Foilpak UD TOP ONE (19:54)
[2017-08-03] MEDS ORDERED: Potassium Chloride 20 mEq ER Tab PO STA (20:48)
[2017-08-03] MEDS ORDERED: Potassium Chloride 20 mEq ER Tab PO ONE (21:52)
[2017-08-03] MEDS ORDERED: Insulin Regular 100 units/ml SC SCH (22:00)
[2017-08-03] MEDS: Insulin Lispro (humaLOG) 100 Units/ml Inj SC SCH (22:30)
[2017-08-03 23:20] VITALS: RESP 18
[2017-08-03] MEDS ORDERED: Promethazine 12.5 mg/10 ml Syrup PO PRN (23:39)
[2017-08-04 06:19] LABS: BLOOD UREA NITROGEN 12 mg/dl (7-17); CALCIUM 8.6 mg/dL (8.4-10.2); GFR AFRICAN-AMERICAN > 60; GFR NON-AFRICAN AMERICAN 53
[2017-08-04] MEDS: Insulin Lispro (humaLOG) 100 Units/ml Inj SC SCH (06:38)
[2017-08-04] MEDS ORDERED: Levothyroxine 200 MCG TAB PO SCH (07:30)
[2017-08-04 07:56] VITALS: PULSE 64; O2SAT 98
[2017-08-04] MEDS: Enoxaparin 40 mg Syringe SC SCH ×2 (08:50→10:24)
[2017-08-04] MEDS ORDERED: Pantoprazole 40 mg EC Tab PO SCH (09:00)
[2017-08-04] MEDS ORDERED: Ferrous Sulfate 220 MG/5 ML PO SCH (09:00)
[2017-08-04] MEDS ORDERED: Potassium Chloride 20 mEq ER Tab PO SCH (09:00)
[2017-08-04] MEDS ORDERED: Insulin Detemir 100 Units/ml Inj SC SCH ×3 (09:00→18:00)
[2017-08-04] MEDS ORDERED: Metoprolol Succinate 100 mg XL Tab PO SCH (09:00)
--- NOTE | 2017-08-04 09:16 | CARD ---
APPROVED REPORT EKG Measurement Heart [id number] [id number] <Conclusion> Sinus rhythm with 1st degree AV block Anterior infarct, age undetermined T wave abnormality, consider lateral ischemia Abnormal ECG
[2017-08-04] MEDS ORDERED: Insulin Lispro (humaLOG) 100 Units/ml Inj SC SCH (11:30)
[2017-08-04 12:13] VITALS: BP 147/73; TEMP 97.7
--- NOTE | 2017-08-04 12:51 | RAD ---
PROCEDURE: Radiographs of the left elbow. HISTORY: fall elbow pain COMPARISON: No prior. FINDINGS: BONES: No acute fracture or destructive bony lesion identified. JOINTS: Normal. No osteoarthritis. SOFT TISSUES: Normal. JOINT EFFUSION: None. OTHER FINDINGS: None IMPRESSION: Unremarkable radiographs of the left elbow.
--- NOTE | 2017-08-04 15:49 | CP.PCM.DIS ---
Provider - Provider Date of Admission: 08/03/17 19:09 Attending physician: J Luis Abraham DO Primary care physician: Dr. Dumotn Time Spent in preparation of Discharge (in minutes): 15 Hospital Course - Lab Results Lab Results: Most Recent Lab Values WBC 3.0 K/uL (4.8-10.8) L 08/03/17 16:59 RBC 4.33 Mil/uL (3.80-5.20) 08/03/17 16:59 Hgb 11.0 g/dL (12.0-16.0) L 08/03/17 16:59 Hct 34.2 % (34.0-47.0) 08/03/17 16:59 MCV 78.8 fl (81.0-99.0) L 08/03/17 16:59 MCH 25.3 pg (27.0-31.0) L 08/03/17 16:59 MCHC 32.1 g/dL (33.0-37.0) L 08/03/17 16:59 RDW 22.8 % (11.5-14.5) H 08/03/17 16:59 Plt Count 116 K/uL (130-400) L 08/03/17 16:59 MPV 8.4 fl (7.2-11.7) 08/03/17 16:59 Neut % (Auto) 63.5 % (50.0-75.0) 08/03/17 16:59 Lymph % (Auto) 27.8 % (20.0-40.0) 08/03/17 16:59 [place] % (Auto) 5.8 % (0.0-10.0) 08/03/17 16:59 Eos % (Auto) 2.5 % (0.0-4.0) 08/03/17 16:59 Baso % (Auto) 0.4 % (0.0-2.0) 08/03/17 16:59 Neut # (Auto) 1.9 K/uL (1.8-7.0) 08/03/17 16:59 Lymph # (Auto) 0.8 K/uL (1.0-4.3) L 08/03/17 16:59 [place] # (Auto) 0.2 K/uL (0.0-0.8) 08/03/17 16:59 Eos # (Auto) 0.1 K/uL (0.0-0.7) 08/03/17 16:59 Baso # (Auto) 0.0 K/uL (0.0-0.2) 08/03/17 16:59 PT 13.3 Seconds (9.8-13.1) H 08/03/17 16:59 INR 1.2 (0.9-1.2) 08/03/17 16:59 APTT 40.9 Seconds (25.6-37.1) H 08/03/17 16:59 Sodium 141 mmol/l (132-148) 08/04/17 04:25 Potassium 3.5 MMOL/L (3.6-5.0) L 08/04/17 04:25 Chloride 99 mmol/L (98-107) 08/04/17 04:25 Carbon Dioxide 29 mmol/L (22-30) 08/04/17 04:25 Anion Gap 17 (10-20) 08/04/17 04:25 BUN 12 mg/dl (7-17) 08/04/17 04:25 Creatinine 1.1 mg/dl (0.7-1.2) 08/04/17 04:25 Est GFR ( Amer) > 60 08/04/17 04:25 Est GFR (Non-Af Amer) 53 08/04/17 04:25 POC Glucose (mg/dL) 269 mg/dL (65-110) H 08/04/17 05:22 Random Glucose 247 mg/dL (65-105) H 08/04/17 04:25 Hemoglobin A1c 7.8 % (4.2-6.5) H 08/04/17 04:25 Calcium 8.6 mg/dL (8.4-10.2) 08/04/17 04:25 Phosphorus 2.8 mg/dl (2.5-4.5) 08/03/17 17:15 Magnesium 2.0 MG/DL (1.6-2.3) 08/03/17 17:15 Total Bilirubin 0.5 mg/dl (0.2-1.3) 08/03/17 17:15 AST 56 U/L (14-36) H D 08/03/17 17:15 ALT 37 U/L (9-52) 08/03/17 17:15 Alkaline Phosphatase 67 U/L (38-126) 08/03/17 17:15 Troponin I < 0.0120 ng/mL (0.00-0.120) 08/03/17 17:15 Total Protein 7.3 G/DL (6.3-8.2) 08/03/17 17:15 Albumin 3.5 g/dL (3.5-5.0) 08/03/17 17:15 Globulin 3.8 gm/dL (2.2-3.9) 08/03/17 17:15 Albumin/Globulin Ratio 0.9 (1.0-2.1) L 08/03/17 17:15 Urine Color Yellow (YELLOW) 08/03/17 16:59 Urine Clarity Slighty-cloudy (Clear) 08/03/17 16:59 Urine pH 6.0 (5.0-8.0) 08/03/17 16:59 Ur Specific [place] 1.015 (1.003-1.030) 08/03/17 16:59 Urine Protein Negative mg/dL (NEGATIVE) 08/03/17 16:59 Urine Glucose (UA) Neg mg/dL (Normal) 08/03/17 16:59 Urine Ketones Negative mg/dL (NEGATIVE) 08/03/17 16:59 Urine Blood Negative (NEGATIVE) 08/03/17 16:59 Urine Nitrate Negative (NEGATIVE) 08/03/17 16:59 Urine Bilirubin Negative (NEGATIVE) 08/03/17 16:59 Urine Urobilinogen 0.2-1.0 mg/dL (0.2-1.0) 08/03/17 16:59 Ur Leukocyte Esterase Trace [place]/uL (Negative) 08/03/17 16:59 Urine RBC (Auto) 1 /hpf (0-3) 08/03/17 16:59 Urine Microscopic WBC 7 /hpf (0-5) H 08/03/17 16:59 Ur Squamous Epith Cells < 1 /hpf (0-5) 08/03/17 16:59 Hyaline Casts 3-5 /hpf (0-2) H 08/03/17 16:59 Urine Opiates Screen Negative (NEGATIVE) 08/03/17 16:59 Urine Methadone Screen Negative (NEGATIVE) 08/03/17 16:59 Ur Barbiturates Screen Negative (NEGATIVE) 08/03/17 16:59 Ur Phencyclidine Scrn Negative (NEGATIVE) 08/03/17 16:59 Ur Amphetamines Screen Negative (NEGATIVE) 08/03/17 16:59 U Benzodiazepines Scrn Negative (NEGATIVE) 08/03/17 16:59 U Oth Cocaine Metabols Negative (NEGATIVE) 08/03/17 16:59 U Cannabinoids Screen Negative (NEGATIVE) 08/03/17 16:59 Blood Type A POSITIVE 08/03/17 16:59 Antibody Screen Negative 08/03/17 16:59 BBK History Checked Patient has bt 08/03/17 16:59 - Hospital Course Hospital Course: 47 years old female well known to our service from prior admissions ,with a long-standing history of bronchial asthma, also with history of CVA, morbid obesity, sinusitis, and suspected obesity/hypoventilation syndrome,diabetes mellitus type II,diabetic neuropathy , cardiomyopathy, coronary artery disease with 4 stents, history of pulmonary embolism,history of right eye malignant tumor in 1976,hypothyroidism ,pancytopenia ,states that last night she got up in the middle of the night to use the restroom and ended up falling and hitting her left elbow to the TV stand. She suffers from lightheadedness, diabetic neuropathy and has had prior work ups and follows up with Dr. Michael. Imaging of her elbow showed no fracture. CT head showed no acute pathology She was placed under observation in telemetry that showed no arrythmias. Patient denies any seizure like episodes , LOC , urinary or bowel incontinence. She states that usually she trips and falls because of decreased sensation to her LE due to her neuropathy. EEG was performed patient feeling well, back to her baseline , hemodynamically stable, afebrile with no neuro deficits . Will discharge patient home with follow up with her PMD Dr. Dumont and her neurologist Dr. Michael 1. Syncopy most likely vasovagal episode CT head showed no acute pathology tele monitor showed no arrythmias Follow up with her neurolohist Dr. Michael as outpatient Counselled on slowly getting up from sitting to standing up position better Diabetes control EEG performed . Follow up results with Dr. michael avoid sedation medications 2. Left Elbow Trauma no Fracture nor dislocation tylenol PRN for pain 3. Uncontrolled BP continue home meds Toprol XL clonidine ,lisinopril 4.Chronic anemia on procrit injection hgb 11 patient had recent bone marrow that showed only iron deficiency Patient to follow up with Dr. Vizcaino for iron infusion as outpatient 5.Chronic bronchial asthma Patient saturating well, hemodynamically stable continue Claritin 10 mg po HS Continue Singulair 10 mg po HS follow up with Dr. Dumont upon discharge 6.DM type 2 with diabetic neuropathy Levemir SC BID 20 units AM and 30 units HS Humalog 14 units SQ TID Accuchecks AC+HS 7.CAD with stents Continue ASA, Plavix, statin 8.Hypothyroidism Continue Synthroid 9. Morbid obesity BMI 53 10.GERD prophylaxis Pepcid 20 mg po BID 11. OSAP on CPAP 12.Hypokalemia. Repleted l Discharge Exam - Head Exam Head Exam: ATRAUMATIC, NORMOCEPHALIC Additional comments: Morbidly obese - Eye Exam Additional comments: left eye enucleation - ENT Exam ENT Exam: Mucous Membranes Moist, Normal Exam - Neck Exam Neck exam: Normal Inspection - Respiratory Exam Respiratory Exam: Clear to PA & Lateral, NORMAL BREATHING PATTERN. absent: Rhonchi, Wheezes - Cardiovascular Exam Cardiovascular Exam: REGULAR RHYTHM, RRR, +S1, +S2. absent: JVD - GI/Abdominal Exam GI & Abdominal Exam: Normal Bowel Sounds, Soft. absent: Distended, Guarding, Rebound, Tenderness - Rectal Exam Rectal Exam: Deferred - Extremities Exam Extremities exam: normal capillary refill, normal inspection, pedal pulses present - Back Exam Back exam: NORMAL INSPECTION - Neurological Exam Neurological exam: Alert, CN II-XII Intact, Oriented x3, Reflexes Normal - Psychiatric Exam Psychiatric exam: Normal Affect - Skin Skin Exam: Dry, Warm Discharge Plan - Follow Up Plan Condition: STABLE Disposition: HOME/ ROUTINE Patient education suggested?: Yes Instructions: Syncope (Fainting) (DC) Additional Instructions: follow up with pmd in 1 week Referrals: Nic Dumont MD [Staff Provider] - Darren Michael MD [Medical Doctor] -
[2017-08-05] MEDS ORDERED: Ergocalciferol 50,000 Intl Units Cap PO SCH (20:30)
== END 2017-08-04 15:10 | disposition home or self-care (01) ==
LOC: H.ER 15:41 → H.ERHOLD 19:09 → H.TEL 22:26
PROVIDERS: ADMIT Internal Medicine; ATTEND Internal Medicine
DX: R55 Syncope and collapse (principal); D61.818 Other pancytopenia; E11.43 Type 2 diabetes mellitus with diabetic autonomic (poly)neuropathy; E11.65 Type 2 diabetes mellitus with hyperglycemia; E03.9 Hypothyroidism, unspecified; E66.01 Morbid (severe) obesity due to excess calories; E87.6 Hypokalemia; I11.0 Hypertensive heart disease with heart failure; I25.10 Atherosclerotic heart disease of native coronary artery without angina pectoris; K21.9 Gastro-esophageal reflux disease without esophagitis; I50.9 Heart failure, unspecified; E78.5 Hyperlipidemia, unspecified; E78.00 Pure hypercholesterolemia, unspecified; G47.33 Obstructive sleep apnea (adult) (pediatric); M25.522 Pain in left elbow; H54.61 Unqualified visual loss, right eye, normal vision left eye; M81.0 Age-related osteoporosis without current pathological fracture; Z68.43 Body mass index [BMI] 50.0-59.9, adult; J45.909 Unspecified asthma, uncomplicated; Z86.73 Personal history of transient ischemic attack (TIA), and cerebral infarction without residual deficits; Z86.711 Personal history of pulmonary embolism; Z95.5 Presence of coronary angioplasty implant and graft; Z97.0 Presence of artificial eye; Z79.02 Long term (current) use of antithrombotics/antiplatelets; Z79.4 Long term (current) use of insulin; F41.9 Anxiety disorder, unspecified; M19.90 Unspecified osteoarthritis, unspecified site; Z79.84 Long term (current) use of oral hypoglycemic drugs; Z88.6 Allergy status to analgesic agent; Z88.1 Allergy status to other antibiotic agents; Z91.041 Radiographic dye allergy status
CPT/HCPCS: 36415; 70450; 71045; 73080; 80048; 80053; 80324; 80345; 80346; 80349; 80353; 80358; 80361; 81003; 81025; 82948; 83036; 83735; 83992; 84100; 84484; 85025; 85610; 85730; 86850; 86900; 87086; 93005; 95816; 99285; G0378